=== PATIENT | male | born 1975 | race American Indian/Alaskan Native ===

== ENCOUNTER 2020-12-19 12:18 | Inpatient (IN) | payer BC ==
--- NOTE | 2020-12-19 13:04 | Emergency Department Report ---
ED Chest Pain HPI - General Chief Complaint: Chest Pain Stated Complaint: CHEST DISCOMFORT/DIZZY Time Seen by Provider: 12/19/20 13:01 Source: patient, EMS Mode of arrival: Stretcher Limitations: No Limitations - History of Present Illness Initial Comments: Patient states that he slept in his truck overnight at his job. At approximately 8:30 in the morning, he stated that he had the sensation of a "bubble in his chest". He stated the bubble was substernal to epigastric. There is no radiating pain. He stated he took a baby aspirin to "play it safe". Thereafter he got nauseated and dizzy. He was transferred via EMS. There is no prehospital record available. I did not receive a prehospital EKG until arrival which demonstrated A-V dissociation.. As far as I can tell at this juncture he did not receive any prehospital medication for the twelve-lead EKG which did demonstrate complete heart block, incomplete right bundle branch block and left posterior fascicular block. Patient arrived at this facility stating his chest pain had resolved. His rhythm remained in A-V dissociation. Another twelve-lead EKG looked like he briefly was in Mobitz type II, 2-1 block. However the third EKG did demonstrate again that he was in A-V dissociation. Therefore, I called the ribbon inker for emergent consultation. I spoke with Dr. Reed. Patient denied any cardiac history. He denied recent alcohol use or history of substance abuse. He stated that he was not a smoker. He did inform me that his father had an SD at 57 and that his grandmother also had a heart attack. He denied any current medications, hospitalizations or prior medical diagnosis. Complaint: chest pain -: Gradual Onset: during rest Pain Location: substernal, epigastric Pain Radiation: none Severity: moderate Quality: other ("Like an air bubble") Consistency: now resolved Improves With: nothing Worsens With: nothing Context: other - Related Data Allergies Allergy/AdvReac Type Severity Reaction Status Date / Time No Known Allergies Allergy Verified 12/19/20 14:00 Heart Score - HEART Score History: Slightly suspicious EKG: Non-specific Age: 45-65 Risk factors: > 3 risk factors or hx of atherosclerotic disease Troponin: < normal limit HEART Score: 4 - EKG Read Time Time EKG Completed: 13:45 EKG Read Time: 13:50 - Critical Actions Critical Actions: 4-6 pts:12-16.6% risk of adverse cardiac event. Should be admitted ED Review of Systems ROS: Stated complaint: CHEST DISCOMFORT/DIZZY Other details as noted in HPI Constitutional: other (Dizziness now resolved as above.). denies: chills, fever Eyes: denies: eye pain, vision change ENT: denies: ear pain, throat pain Respiratory: denies: cough, shortness of breath Cardiovascular: as per HPI, chest pain. denies: palpitations Endocrine: no symptoms reported Gastrointestinal: nausea. denies: abdominal pain, vomiting, diarrhea Genitourinary: denies: urgency, dysuria Musculoskeletal: denies: back pain, joint swelling, arthralgia Skin: denies: rash, lesions Neurological: denies: headache, weakness, paresthesias Psychiatric: denies: anxiety, depression Hematological/Lymphatic: denies: easy bleeding, easy bruising ED Past Medical Hx - Past Medical History Previous Medical History?: No - Social History Smoking Status: Never Smoker Substance Use Type: None ED Physical Exam - General Limitations: No Limitations General appearance: alert, in no apparent distress - Head Head exam: Present: atraumatic, normocephalic. Absent: normal inspection - Eye Eye exam: Present: normal appearance. Absent: scleral icterus - ENT ENT exam: Present: mucous membranes moist - Neck Neck exam: Present: normal inspection. Absent: tenderness, meningismus - Respiratory Respiratory exam: Present: normal lung sounds bilaterally. Absent: respiratory distress - Cardiovascular Cardiovascular Exam: Present: bradycardia, other (A-V dissociation). Absent: systolic murmur, diastolic murmur, rubs, gallop - GI/Abdominal GI/Abdominal exam: Present: soft, normal bowel sounds. Absent: distended, tenderness, guarding, rebound - Rectal Rectal exam: Present: deferred - Extremities Exam Extremities exam: Present: normal inspection, pedal edema. Absent: joint swelling, calf tenderness - Back Exam Back exam: Present: normal inspection - Neurological Exam Neurological exam: Present: alert, oriented X3, CN II-XII intact. Absent: motor sensory deficit - Psychiatric Psychiatric exam: Present: normal affect, normal mood - Skin Skin exam: Present: warm, dry, intact, normal color. Absent: rash ED Course Vital Signs 12/19/20 12/19/20 12/19/20 13:30 13:46 14:00 Pulse Rate 50 L 52 L 49 L Respiratory 8 L 16 18 Rate Blood Pressure 165/81 167/88 188/97 Blood Pressure [Left] O2 Sat by Pulse 98 98 100 Oximetry 12/19/20 14:08 Pulse Rate 112 H Respiratory 18 Rate Blood Pressure Blood Pressure 170/110 [Left] O2 Sat by Pulse 98 Oximetry - Reevaluation(s) Reevaluation #1: Spoke with ribbon inker, Dr. Reed. He requests that we give the patient a full amp of atropine IV (1 mg). We discussed the possibility of 0.5 mg. However he is comfortable giving 1 mg. We discussed the possibility of paradoxical effect. Dr. Dr. Reed has reviewed the EKG, consistent with A-V dissociation with incomplete right bundle branch block/LPFB 12/19/20 13:52 12/19/20 14:36 Patient was given a milligram of atropine. I remained at the bedside with the nurse. Initially, he responded with a sinus tachycardia of 120. However, he d developed a "September of " without ventricular complexes. He looked dusky and stopped communicating. I did immediately do chest compressions on the patient (approximately 10). The patient then regained consciousness and again was in A- V dissociation. The ventricular rate went as low as 24 on a twelve-lead EKG timed 1412. Patient's blood pressure remained hypertensive. By 1419 repeat EKG essentially showed him returned to his baseline complete AV block with a persistent incomplete RBBB and LAFB. This was reported to Dr. Reed. He activated the [employer]. The need for temporary pacemaker was explained to the patient by me. He was awake and alert and understanding of problem. Hospitalist Dr. Arias was informed of the need to admit. He requested bridge orders to the ICU. 12/19/20 14:59 WAI score - Wai Score Age > 65: (1) Yes Aspirin use within the Past 7 Days: (0) No 3 or more CAD Risk Factors: (1) Yes 2 or more Angina events in past 24 hrs: (0) No Known CAD with more than 50% Stenosis: (0) No Elevated Cardiac Markers: (0) No ST Deviation Greater than 0.5mm: (0) No WAI Score: 2 ED Medical Decision Making - Lab Data Result diagrams: 12/19/20 13:34 05/21/21 13:34 - EKG Data -: EKG Interpreted by Me - EKG Data Interpretation: other (A-V dissociation ventricular rate 40s, atrial rate 40s) Critical Care Time: Yes Critical care time in (mins) excluding proc time.: 80 Critical care attestation.: If time is entered above; I have spent that time in minutes in the direct care of this critically ill patient, excluding procedure time. ED Disposition Clinical Impression: Aur[place]o ventricular dissociation Disposition: 09 OP ADMIT IP TO THIS HOSP Is pt being admited?: Yes Does the pt Need Aspirin: Yes Condition: Stable Time of Disposition: 15:06
--- NOTE | 2020-12-19 13:36 | XRay Report ---
CHEST 1 VIEW 12/19/2020 12:31 PM INDICATION / CLINICAL INFORMATION: Chest Pain. COMPARISON: None available. FINDINGS: SUPPORT DEVICES: None. HEART / MEDIASTINUM: No significant abnormality. LUNGS / PLEURA: No significant pulmonary or pleural abnormality. No pneumothorax. ADDITIONAL FINDINGS: No significant additional findings. IMPRESSION: 1. No acute findings. Signer Name: Aj Hannon MD Signed: 12/19/2020 1:31 PM Workstation Name: [id number]
[2020-12-19] MEDS ORDERED: ATROPINE 1 MG/ML VIAL IV ONE (13:57)
[2020-12-19] MEDS ORDERED: ATROPINE 0.1% (1 MG/10 ML) CARDIAC SYRINGE ONE (13:59)
[2020-12-19 14:05] LABS: Basophils % (Auto) 0.4 % (0.0-1.8); Eosinophils # (Auto) 0.2 K/mm3 (0.0-0.4); Eosinophils % (Auto) 2.5 % (0.0-4.3); Hematocrit 41.2 % (35.5-45.6); INR 1.44 (0.87-1.13); Lymphocytes # (Auto) 1.8 K/mm3 (1.2-5.4); Mean Corpuscular HGB Conc 34 % (32-34); Mean Corpuscular Volume 77 fl (84-94); Monocytes # (Auto) 0.8 K/mm3 (0.0-0.8); Platelet Count 274 K/mm3 (140-440); Red Blood Count 5.33 M/mm3 (3.65-5.03); Red Cell Distribution Width 15.8 % (13.2-15.2)
[2020-12-19 14:06] LABS: Partial Thromboplastin Time 32.8 Sec. (24.2-36.6)
[2020-12-19 14:07] LABS: BUN/Creatinine Ratio 9; Blood Urea Nitrogen 10 mg/dL (9-20); Calcium 9.1 mg/dL (8.4-10.2); Hemolysis Index 3
[2020-12-19 14:09] LABS: Creatine Kinase MB 7.8 ng/mL (0.0-4.0)
[2020-12-19 14:11] LABS: Alanine Aminotransferase 29 units/L (7-56); Albumin 4.2 g/dL (3.9-5)
[2020-12-19 14:14] LABS: Bilirubin,Direct < 0.2 mg/dL (0-0.2)
[2020-12-19] MEDS ORDERED: HEPARIN/NS 5000 UNIT/500ML 500 ML IR ONE (14:33)
[2020-12-19] MEDS ORDERED: SODIUM CHLORIDE 0.9% 500 ML 500 ML ONE (14:41)
[2020-12-19 14:48] LABS: Free T4 (Free Thyroxine) 1.05 ng/dL (0.76-1.46)
[2020-12-19] MEDS: fentaNYL 100 MCG/2 ML INJ ONE ×2 (15:22→15:32)
[2020-12-19] MEDS: LIDOCAINE (2%) 20 MG/1 ML VIAL 20 ML MDV INFILTRATI ONE ×2 (15:22→15:28)
[2020-12-19] MEDS: MIDAZOLAM 2 MG/2 ML INJ ONE ×2 (15:22→15:32)
[2020-12-19] MEDS ORDERED: LIDOCAINE (2%) 20 MG/1 ML VIAL 20 ML MDV INFILTRATI ONE (15:33)
--- NOTE | 2020-12-19 16:25 | Consultation ---
History of Present Illness Consult date: 12/19/20 Consult reason: bradycardia History of present illness: Patient is a 45-year-old man who is morbidly obese, denies any prior cardiac history, presented to the hospital with symptomatic bradycardia. EKG in the emergency room was sinus rhythm with complete heart block and a ventricular escape at 40. There was transient return to a sinus tachycardia with one-to-one conduction following intravenous atropine, but he soon reverted back to complete A-V dissociation. Cardiology consultation was requested, and we recommended urgent temporary transvenous pacemaker placement. A transvenous pacemaker was successfully deployed via the right femoral vein, with excellent pacing thresholds. Patient is admitted to the CCU for further observation. Patient denies any prior medical history, is on no medications. Although he denies a history of hypertension his systolic blood pressure has been markedly elevated during this presentation, consistently over 200 systolic. Laboratory exam shows a normal potassium of 4.0, normal magnesium of 2.3, and normal TSH of 1.3. There was a mild increase in his CPK of 500, but the troponin level was normal. Past History Past Medical History: No medical history Medications and Allergies Allergies Allergy/AdvReac Type Severity Reaction Status Date / Time No Known Allergies Allergy Verified 12/19/20 14:00 Active Meds: Active Medications Aspirin (Aspirin 325 Mg Tab) 325 mg PO QDAY [place] Nifedipine (Nifedipine Xl 60 Mg Tab) 60 mg PO Q12HR [place] Review of Systems Cardiovascular: lightheadedness, shortness of breath, no chest pain, no orthopnea, no palpitations, no rapid/irregular heart beat, no edema, no syncope Physical Examination Vital Signs Pulse Resp BP Pulse Ox 50 L 8 L 165/81 98 12/19/20 13:30 12/19/20 13:30 12/19/20 13:30 12/19/20 13:30 General appearance: mild distress HEENT: Positive: PERRL Neck: Positive: neck supple Cardiac: Positive: Irregularly Regular Lungs: Positive: Decreased Breath Sounds Neuro: Positive: Grossly Intact Abdomen: Positive: Soft Male genitourinary: Positive: deferred Skin: Positive: Clear Extremities: Absent: edema Results 12/19/20 13:34 12/19/20 13:34 Cardiac Enzymes 12/19/20 Range/Units 13:34 AST 22 (5-40) units/L CK-MB (CK-2) 7.8 H (0.0-4.0) ng/mL Coagulation 12/19/20 Range/Units 13:34 PT 17.4 H (12.2-14.9) Sec. INR 1.44 H (0.87-1.13) APTT 32.8 (24.2-36.6) Sec. CBC 12/19/20 Range/Units 13:34 WBC 6.4 (4.5-11.0) K/mm3 RBC 5.33 H (3.65-5.03) M/mm3 Hgb 14.0 (11.8-15.2) gm/dl Hct 41.2 (35.5-45.6) % Plt Count 274 (140-440) K/mm3 Lymph # (Auto) 1.8 (1.2-5.4) K/mm3 [place] # (Auto) 0.8 (0.0-0.8) K/mm3 Eos # (Auto) 0.2 (0.0-0.4) K/mm3 Baso # (Auto) 0.0 (0.0-0.1) K/mm3 Comprehensive Metabolic Panel 12/19/20 12/19/20 Range/Units 13:34 13:34 Sodium 137 (137-145) mmol/L Potassium 4.0 (3.6-5.0) mmol/L Chloride 101.7 (98-107) mmol/L Carbon Dioxide 26 (22-30) mmol/L BUN 10 (9-20) mg/dL Creatinine 1.1 (0.8-1.3) mg/dL Glucose 96 (75-100) mg/dL Calcium 9.1 (8.4-10.2) mg/dL Direct Bilirubin < 0.2 (0-0.2) mg/dL Indirect Bilirubin 0.2 mg/dL AST 22 (5-40) units/L ALT 29 (7-56) units/L Alkaline Phosphatase 80 (35-129) units/L Total Protein 7.5 (6.3-8.2) g/dL Albumin 4.2 (3.9-5) g/dL EKG interpretations - Telemetry EKG Rhythm: Sinus Rhythm (With complete heart block and ventricular escape at 40) Assessment and Plan - Patient Problems (1) Complete heart block Current Visit: Yes Status: Acute Plan to address problem: Patient presents with symptomatic bradycardia due to complete heart block. He is status post temporary transvenous pacemaker placement. There are no obvious reversible causes at this time so he may very likely need permanent pacemaker placement. We will order an echocardiogram for left ventricular function assessment. (2) Uncontrolled hypertension Current Visit: Yes Status: Acute Plan to address problem: We will start patient on Procardia XL 60 mg twice daily for hypertension management.
--- NOTE | 2020-12-19 17:03 | Cardiac Catherization Report ---
DATE OF SERVICE: 12/19/2020 PROCEDURE: TEMPORARY PACEMAKER PLACEMENT. REASON FOR PROCEDURE: The patient is a 45-year-old man who presented to the hospital with symptomatic, severe anemia. EKG was a sinus rhythm with complete heart block and a ventricular escape rhythm at 40. The patient was initially treated with intravenous atropine, with only temporary return to a sinus with 1:1 conduction. He soon after reverted back to complete heart block. This prompted a recommendation for urgent transvenous pacemaker placement. DESCRIPTION OF PROCEDURE: I was present for the entire procedure and supervised the moderate sedation protocol. The patient was prepped and draped in a sterile fashion after informed consent. The right femoral vein was entered using Seldinger technique followed by placement of a 6-Polish sheath. We then advanced a 5 Polish transvenous pacemaker to the right ventricular apex. Following the pacemaker positioning, we were able to obtain excellent capture with a threshold of 0.2 millivolts. The procedure was well tolerated by the patient and there were no complications. He was returned to the CCU in stable condition. CONCLUSION: Successful placement of a temporary transvenous pacemaker via the right femoral vein. TID: [id number] RECEIPT: [id number] KANG YOO
--- NOTE | 2020-12-19 17:07 | History and Physical Report ---
History of Present Illness Date of examination: 12/19/20 Date of admission: 12/19/20 14:29 Chief complaint: Dizziness and chest tightness since a.m. 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 Patient slept the whole night and woke up in the morning and whenever he was sitting up started feeling dizzy and some chest tightness. And near passing out. Because of the symptoms patient came to the emergency room via EMS. EKGs with EMS and the EKGs in the ER showed AV block and bradycardia for which patient was taken to the Solutions Engineer for temporary venous pacemaker. No cardiac history. Hypertension present. No alcohol or smoking. No substance abuse. Patient has a strong family history of hypertension and coronary artery disease. - Past Medical History Htn Past surgical history No - Social History Smoking Status: Never Smoker Substance Use Type: None Family history Htn Review of Systems ROS: Stated complaint: CHEST DISCOMFORT/DIZZY Other details as noted in HPI Constitutional: other (Dizziness now resolved as above.). denies: chills, fever Eyes: denies: eye pain, vision change ENT: denies: ear pain, throat pain Respiratory: denies: cough, shortness of breath Cardiovascular: Some chest tightness Endocrine: no symptoms reported Gastrointestinal: nausea. denies: abdominal pain, vomiting, diarrhea Genitourinary: denies: urgency, dysuria Musculoskeletal: denies: back pain, joint swelling, arthralgia Skin: denies: rash, lesions Neurological: denies: headache, weakness, paresthesias Psychiatric: denies: anxiety, depression Hematological/Lymphatic: denies: easy bleeding, easy bruising Past History Past Medical History: No medical history Medications and Allergies Allergies Allergy/AdvReac Type Severity Reaction Status Date / Time No Known Allergies Allergy Verified 12/19/20 14:00 Home Medications Medication Instructions Recorded Confirmed Last Taken Type No Known Home Medications [No 12/19/20 12/19/20 Unknown History Reported Home Medications] Active Meds: Active Medications Aspirin (Aspirin 325 Mg Tab) 325 mg PO QDAY [place] Nifedipine (Nifedipine Xl 60 Mg Tab) 60 mg PO Q12HR [place] Exam - Constitutional Vitals: Temp Pulse Resp BP Pulse Ox 112 H 18 170/110 98 12/19/20 14:08 12/19/20 14:08 12/19/20 14:08 12/19/20 14:08 General appearance: Present: no acute distress, well-nourished - EENT Eyes: Present: PERRL ENT: hearing intact, clear oral mucosa - Neck Neck: Present: supple, normal ROM - Respiratory Respiratory effort: normal Respiratory: bilateral: CTA - Cardiovascular Heart rate: 56 Rhythm: regular Heart Sounds: Present: S1 & S2. Absent: rub, click - Extremities Extremities: pulses symmetrical, No edema Peripheral Pulses: within normal limits - Abdominal General gastrointestinal: Present: soft, non-tender, non-distended, normal bowel sounds Male genitourinary: Present: normal - Integumentary Integumentary: Present: clear, warm, dry - Musculoskeletal Musculoskeletal: gait normal, strength equal bilaterally - Psychiatric Psychiatric: appropriate mood/affect, intact judgment & insight - Neurologic Neurologic: CNII-XII intact, moves all extremities HEART Score - HEART Score History: Highly suspicious EKG: Non-specific Age: 45-65 Risk factors: 1-2 risk factors Troponin: Troponin T < 0.010 ng/mL (0.00-0.029) 12/19/20 13:34 Troponin: < normal limit HEART Score: 5 - Critical Actions Critical Actions: 4-6 pts:12-16.6% risk of adverse cardiac event. Should be admitted Results - Labs CBC & Chem 7: 12/19/20 13:34 12/19/20 13:34 Labs: Laboratory Last Values WBC 6.4 K/mm3 (4.5-11.0) 12/19/20 13:34 RBC 5.33 M/mm3 (3.65-5.03) H 12/19/20 13:34 Hgb 14.0 gm/dl (11.8-15.2) 12/19/20 13:34 Hct 41.2 % (35.5-45.6) 12/19/20 13:34 MCV 77 fl (84-94) L 12/19/20 13:34 MCH 26 pg (28-32) L 12/19/20 13:34 MCHC 34 % (32-34) 12/19/20 13:34 RDW 15.8 % (13.2-15.2) H 12/19/20 13:34 Plt Count 274 K/mm3 (140-440) 12/19/20 13:34 Lymph % (Auto) 28.0 % (13.4-35.0) 12/19/20 13:34 [place] % (Auto) Field Sales Agent 12/19/20 13:34 Eos % (Auto) 2.5 % (0.0-4.3) 12/19/20 13:34 Baso % (Auto) 0.4 % (0.0-1.8) 12/19/20 13:34 Lymph # (Auto) 1.8 K/mm3 (1.2-5.4) 12/19/20 13:34 [place] # (Auto) 0.8 K/mm3 (0.0-0.8) 12/19/20 13:34 Eos # (Auto) 0.2 K/mm3 (0.0-0.4) 12/19/20 13:34 Baso # (Auto) 0.0 K/mm3 (0.0-0.1) 12/19/20 13:34 Seg Neutrophils % 56.6 % (40.0-70.0) 12/19/20 13:34 Seg Neutrophils # 3.6 K/mm3 (1.8-7.7) 12/19/20 13:34 PT 17.4 Sec. (12.2-14.9) H 12/19/20 13:34 INR 1.44 (0.87-1.13) H 12/19/20 13:34 APTT 32.8 Sec. (24.2-36.6) 12/19/20 13:34 Sodium 137 mmol/L (137-145) 12/19/20 13:34 Potassium 4.0 mmol/L (3.6-5.0) 12/19/20 13:34 Chloride 101.7 mmol/L (98-107) 12/19/20 13:34 Carbon Dioxide 26 mmol/L (22-30) 12/19/20 13:34 Anion Gap 13 mmol/L 12/19/20 13:34 BUN 10 mg/dL (9-20) 12/19/20 13:34 Creatinine 1.1 mg/dL (0.8-1.3) 12/19/20 13:34 Estimated GFR > 60 ml/min 12/19/20 13:34 BUN/Creatinine Ratio 9 % 12/19/20 13:34 Glucose 96 mg/dL (75-100) 12/19/20 13:34 Calcium 9.1 mg/dL (8.4-10.2) 12/19/20 13:34 Magnesium 2.30 mg/dL (1.7-2.3) 12/19/20 13:34 Total Bilirubin 0.40 mg/dL (0.1-1.2) 12/19/20 13:34 Direct Bilirubin < 0.2 mg/dL (0-0.2) 12/19/20 13:34 Indirect Bilirubin 0.2 mg/dL 12/19/20 13:34 AST 22 units/L (5-40) 12/19/20 13:34 ALT 29 units/L (7-56) 12/19/20 13:34 Alkaline Phosphatase 80 units/L (35-129) 12/19/20 13:34 Total Creatine Kinase 503 units/L (55-170) H 12/19/20 13:34 CK-MB (CK-2) 7.8 ng/mL (0.0-4.0) H 12/19/20 13:34 CK-MB (CK-2) Rel Index 1.5 (0-4) 12/19/20 13:34 Troponin T < 0.010 ng/mL (0.00-0.029) 12/19/20 13:34 NT-Pro-B Natriuret Pep 45.95 pg/mL (0-450) 12/19/20 13:34 Total Protein 7.5 g/dL (6.3-8.2) 12/19/20 13:34 Albumin 4.2 g/dL (3.9-5) 12/19/20 13:34 Albumin/Globulin Ratio 1.3 % 12/19/20 13:34 TSH 1.320 mlU/mL (0.270-4.200) 12/19/20 13:34 Free T4 1.05 ng/dL (0.76-1.46) 12/19/20 13:34 Short CBC 12/19/20 Range/Units 13:34 WBC 6.4 (4.5-11.0) K/mm3 Hgb 14.0 (11.8-15.2) gm/dl Hct 41.2 (35.5-45.6) % Plt Count 274 (140-440) K/mm3 BMP 12/19/20 13:34 Sodium 137 Potassium 4.0 Chloride 101.7 Carbon Dioxide 26 BUN 10 Creatinine 1.1 Glucose 96 Calcium 9.1 Cardiac Enzymes 12/19/20 12/19/20 12/19/20 Range/Units 13:34 13:34 19:48 Total Creatine Kinase 503 H (55-170) units/L CK-MB (CK-2) 7.8 H (0.0-4.0) ng/mL Troponin T < 0.010 < 0.010 (0.00-0.029) ng/mL Liver Function 12/19/20 Range/Units 13:34 Total Bilirubin 0.40 (0.1-1.2) mg/dL Direct Bilirubin < 0.2 (0-0.2) mg/dL AST 22 (5-40) units/L ALT 29 (7-56) units/L Alkaline Phosphatase 80 (35-129) units/L Albumin 4.2 (3.9-5) g/dL Urine 12/19/20 Range/Units 18:50 Urine Color Yellow (Yellow) Urine pH 5.0 (5.0-7.0) Ur Specific [place] 1.012 (1.003-1.030) Urine Protein 100 mg/dl (Negative) mg/dL Urine Glucose (UA) Neg (Negative) mg/dL - Imaging and Cardiology EKG: report reviewed (Complete heart block) Assessment and Plan Assessment and plan: Critical care statement The high probability OF a clinically significant sudden or life-threatening deterioration of the cardiorespiratory system and endocrine system required my full and direct attention, intervention and postoperative management. The aggregate critical care time was 35 minutes. The time is in addition to time spent performing reported procedures but includes the followin: Data review and interpretation 2: Patient assessment and monitoring of vital signs 3: Documentation 4:: Medication orders and management Advance Directives: Yes (Full code) VTE prophylaxis?: Chemical Plan of care discussed with patient/family: Yes - Patient Problems (1) Complete heart block Current Visit: Yes Status: Acute Plan to address problem: Cardiology was consulted [facility] --Dr Reed took him to the Solutions Engineer and had successful placement of a temporary transvenous pacemaker via the right femoral vein (2) Hypertensive emergency Current Visit: Yes Status: Acute Plan to address problem: Patient initiated on hydralazine 50 every 8 and valsartan 160 every 12 Hydralazine 10 mg IV every 2 3 as needed for blood pressure more than 160/100 (3) Acute coronary syndrome Current Visit: Yes Status: Acute Plan to address problem: Serial troponins for now IV morphine for chest pain (4) Pre-syncope Current Visit: Yes Status: Acute Plan to address problem: Secondary to complete heart block IV fluids for now (5) DVT prophylaxis Current Visit: Yes Status: Acute Plan to address problem: On heparin and GI prophylaxis
[2020-12-19] MEDS: ASPIRIN 325 MG TAB PO SCH (17:16)
[2020-12-19 19:02] LABS: Bilirubin,Urine NEG (Negative); Blood,Urine SM (Negative); Color,Urine Yellow (Yellow); Mucus,Urine FEW /HPF; Urobilinogen,Urine < 2.0 mg/dL (<2.0)
[2020-12-19 19:10] LABS: Amphetamine Screen,Urine Negative; Benzodiazepines Screen,Urine Negative; Cannabinoid Screen,Urine Negative; Cocaine Screen,Urine Negative; Methadone Screen,Urine Negative; Opiate Screen,Urine Negative
[2020-12-19] MEDS: NIFEdipine XL 60 MG TAB PO SCH (22:10)
[2020-12-19] MEDS ORDERED: METOCLOPRAMIDE 10 MG/2 ML INJ IV PRN (23:37)
[2020-12-19] MEDS ORDERED: ONDANSETRON 4 MG/2 ML INJ IV PRN (23:37)
[2020-12-19] MEDS ORDERED: oxyCODONE /ACETAMINOPHEN 5-325MG TAB PO PRN (23:37)
[2020-12-19] MEDS ORDERED: SODIUM CHLORIDE 0.9% 1000 ML 1,000 ML IV SCH (23:45)
[2020-12-20] MEDS: hydrALAZINE 25 MG TAB PO SCH ×3 (00:01→14:45)
[2020-12-20] MEDS ORDERED: SIMETHICONE 80 MG CHEW TAB PO PRN (02:29)
[2020-12-20 02:58] LABS: Basophils % (Auto) 0.3 % (0.0-1.8); Eosinophils # (Auto) 0.1 K/mm3 (0.0-0.4); Eosinophils % (Auto) 1.2 % (0.0-4.3); Hematocrit 40.3 % (35.5-45.6); Hemoglobin 13.7 gm/dl (11.8-15.2); Lymphocytes # (Auto) 1.6 K/mm3 (1.2-5.4); Lymphocytes % (Auto) 19.9 % (13.4-35.0); Mean Corpuscular HGB Conc 34 % (32-34); Mean Corpuscular Volume 78 fl (84-94); Platelet Count 260 K/mm3 (140-440); Red Blood Count 5.15 M/mm3 (3.65-5.03); Red Cell Distribution Width 15.4 % (13.2-15.2)
[2020-12-20 04:18] LABS: Alanine Aminotransferase 30 units/L (7-56); Albumin 4.2 g/dL (3.9-5); BUN/Creatinine Ratio 10; Blood Urea Nitrogen 11 mg/dL (9-20); Calcium 9.2 mg/dL (8.4-10.2); Hemolysis Index 3
[2020-12-20] MEDS: ASPIRIN 325 MG TAB PO SCH (09:56)
[2020-12-20] MEDS: VALSARTAN 160MG TAB PO SCH ×3 (09:56→21:08)
[2020-12-20] MEDS: NIFEdipine XL 60 MG TAB PO SCH ×2 (09:57→21:08)
[2020-12-20] MEDS: FAMOTIDINE 20 MG/2 ML INJ IV SCH ×2 (09:57→21:06)
[2020-12-20] MEDS: HEPARIN 5,000 UNIT/1 ML VIAL SUB-Q SCH ×2 (09:57→21:08)
--- NOTE | 2020-12-20 12:17 | Consultation ---
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 Presented to the ED with a heart rate in the 20's and found to be in complete heart block. Transvenous pacermaker placed by cards via right femoral. Here now in unit, fully paced and stable. Past History Past Medical History: No medical history Past Surgical History: No surgical history Social history: no significant social history Family history: no significant family history Medications and Allergies Allergies Allergy/AdvReac Type Severity Reaction Status Date / Time No Known Allergies Allergy Verified 12/19/20 14:00 Home Medications Medication Instructions Recorded Confirmed Last Taken Type No Known Home Medications [No 12/19/20 12/19/20 Unknown History Reported Home Medications] Active Meds: Active Medications Acetaminophen (Acetaminophen 325 Mg Tab) 650 mg PO Q4H PRN PRN Reason: Pain MILD(1-3)/Fever >100.5/YAO Aspirin (Aspirin 325 Mg Tab) 325 mg PO QDAY [facility] Last Admin: 12/20/20 09:56 Dose: 325 mg Documented by: Famotidine (Famotidine 20 Mg/2 Ml Inj) 20 mg IV BID [facility] Last Admin: 12/20/20 09:57 Dose: 20 mg Documented by: Heparin Sodium (Porcine) (Heparin 5,000 Unit/1 Ml Vial) 5,000 unit SUB-Q Q12HR [facility] Last Admin: 12/20/20 09:57 Dose: 5,000 unit Documented by: Hydralazine HCl (Hydralazine 25 Mg Tab) 50 mg PO Q8HR [facility] Last Admin: 12/20/20 08:45 Dose: Not Given Documented by: Hydromorphone HCl (Hydromorphone 1 Mg/1 Ml Inj) 0.5 mg IV Q3H PRN PRN Reason: Pain , Severe (7-10) Sodium Chloride (Nacl 0.9% 1000 Ml) 1,000 mls @ 42 mls/hr IV DIRECT [facility] Last Admin: 12/20/20 00:01 Dose: 42 mls/hr Documented by: Metoclopramide HCl (Metoclopramide 10 Mg/2 Ml Inj) 10 mg IV Q6H PRN PRN Reason: Nausea And Vomiting Nifedipine (Nifedipine Xl 60 Mg Tab) 60 mg PO Q12HR [facility] Last Admin: 12/20/20 09:57 Dose: 60 mg Documented by: Ondansetron HCl (Ondansetron 4 Mg/2 Ml Inj) 4 mg IV Q8H PRN PRN Reason: Nausea And Vomiting Oxycodone/Acetaminophen (Oxycodone /Acetaminophen 5-325mg Tab) 1 tab PO Q6H PRN PRN Reason: Pain, Moderate (4-6) Simethicone (Simethicone 80 Mg Chew Tab) 80 mg PO Q6H PRN PRN Reason: Gas pain Last Admin: 12/20/20 03:04 Dose: 80 mg Documented by: Sodium Chloride (Sodium Chloride 0.9% 10 Ml Flush Syringe) 10 ml IV BID [facility] Last Admin: 12/20/20 09:58 Dose: 10 ml Documented by: Sodium Chloride (Sodium Chloride 0.9% 10 Ml Flush Syringe) 10 ml IV PRN PRN PRN Reason: LINE FLUSH Valsartan (Valsartan 160mg Tab) 160 mg PO Q12HR [facility] Last Admin: 12/20/20 09:56 Dose: 160 mg Documented by: Review of Systems All systems: negative Exam - Constitutional Vitals: Temp Pulse Resp BP Pulse Ox 98 F 56 L 22 131/64 99 12/20/20 03:00 12/20/20 10:00 12/20/20 10:00 12/20/20 10:00 12/20/20 10:00 General appearance: Present: no acute distress, well-nourished, obese - EENT Eyes: Present: PERRL, EOM intact ENT: hearing intact, clear oral mucosa, dentition normal - Neck Neck: Present: supple, normal ROM - Respiratory Respiratory effort: normal Respiratory: bilateral: CTA Results - Labs CBC & Chem 7: 12/20/20 02:19 12/20/20 02:19 Labs: Abnormal lab results 12/19/20 12/19/20 12/19/20 Range/Units 13:34 13:34 13:34 RBC 5.33 H (3.65-5.03) M/mm3 MCV 77 L (84-94) fl MCH 26 L (28-32) pg RDW 15.8 H (13.2-15.2) % Story % (Auto) (0.0-7.3) % Story # (Auto) (0.0-0.8) K/mm3 PT 17.4 H (12.2-14.9) Sec. INR 1.44 H (0.87-1.13) Total Creatine Kinase 503 H (55-170) units/L CK-MB (CK-2) 7.8 H (0.0-4.0) ng/mL 12/20/ Range/Units 02:19 RBC 5.15 H (3.65-5.03) M/mm3 MCV 78 L (84-94) fl MCH 27 L (28-32) pg RDW 15.4 H (13.2-15.2) % Story % (Auto) 13.0 H (0.0-7.3) % Story # (Auto) 1.0 H (0.0-0.8) K/mm3 PT (12.2-14.9) Sec. INR (0.87-1.13) Total Creatine Kinase (55-170) units/L CK-MB (CK-2) (0.0-4.0) ng/mL - Imaging and Cardiology Chest x-ray: image reviewed (normal) Assessment and Plan 45 y/o obese male with complete heart block 1. Pacemaker placement per cards 2. Needs outpatient PSG 3. Weight loss 4. Continue ICU monitoring CCT 31 minutes.
--- NOTE | 2020-12-20 13:27 | Progress Note ---
Assessment and Plan Assessment and plan: This is a 45-year-old female with no known medical history was admitted for complete heart block s/p transvenous pacemaker COVID-19 PUI Complete heart block Hypertensive emergency Presyncope (likely related to complete heart block) -Cardiology, CCM consulted, appreciate recommendations -Covid PCR pending -Contact/droplet isolation -S/p atropine x1 in the ED -S/p insertion of transvenous pacemaker -Echocardiogram pending -Blood pressure monitoring per protocol -Procardia, valsartan, hydralazine as needed hydralazine -Cardiac diet -Serial troponins have been less than 0.01 -Trend CBC, CMP DVT/GI prophylaxis: SCDs to bilateral lower extremities while in bed, heparin subcu Disposition: ICU The high probability of a clinically significant, sudden or life threatening deterioration of the [cardio] system(s) required my full and direct attention, intervention and personal management. The aggregate critical care time was [35] minutes. 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 ECG in the EMS and ED showed AV block with heart rate in the 20s and bradycardia for which the patient was emergently taken to [facility] for temporary venous pacemaker insertion. Patient was admitted to the hospital service with consults to [facility] and cardiology. 12/20: COVID-19 PCR pending. Patient complains of of gas pains for which he is being treated with simethicone. Patient does not complain of any chest pain, respiratory distress, nausea or vomiting. Blood pressure is better controlled. Hospitalist Physical - Constitutional Vitals: Temp Pulse Resp BP Pulse Ox 98 F 56 L 18 142/78 99 12/20/20 03:00 12/20/20 13:00 12/20/20 13:00 12/20/20 13:00 12/20/20 13:00 General appearance: Present: no acute distress, well-nourished, obese - EENT Eyes: Present: PERRL, EOM intact ENT: hearing intact, clear oral mucosa, dentition normal - Neck Neck: Present: supple, normal ROM - Respiratory Respiratory effort: normal Respiratory: bilateral: diminished - Cardiovascular Rhythm: regular Heart Sounds: Present: S1 & S2. Absent: systolic murmur, diastolic murmur - Extremities Extremities: no ischemia, pulses intact, pulses symmetrical, No edema, normal temperature, normal color, Full ROM Peripheral Pulses: within normal limits - Abdominal General gastrointestinal: soft, non-tender, non-distended, normal bowel sounds - Integumentary Integumentary: Present: clear, warm, dry - Psychiatric Psychiatric: appropriate mood/affect, cooperative - Neurologic Neurologic: CNII-XII intact, no focal deficits - Allied Health Allied health notes reviewed: nursing, social work HEART Score - HEART Score EKG: Non-specific Age: 45-65 Risk factors: 1-2 risk factors Troponin: Troponin T < 0.010 ng/mL (0.00-0.029) 12/20/20 06:51 Troponin: < normal limit - Critical Actions Critical Actions: 4-6 pts:12-16.6% risk of adverse cardiac event. Should be admitted Results - Labs CBC & Chem 7: 12/20/20 02:19 12/20/20 02:19 Labs: Laboratory Last Values WBC 7.8 K/mm3 (4.5-11.0) 12/20/20 02:19 RBC 5.15 M/mm3 (3.65-5.03) H 12/20/20 02:19 Hgb 13.7 gm/dl (11.8-15.2) 12/20/20 02:19 Hct 40.3 % (35.5-45.6) 12/20/20 02:19 MCV 78 fl (84-94) L 12/20/20 02:19 MCH 27 pg (28-32) L 12/20/20 02:19 MCHC 34 % (32-34) 12/20/20 02:19 RDW 15.4 % (13.2-15.2) H 12/20/20 02:19 Plt Count 260 K/mm3 (140-440) 12/20/20 02:19 Lymph % (Auto) 19.9 % (13.4-35.0) 12/20/20 02:19 [place] % (Auto) 13.0 % (0.0-7.3) H 12/20/20 02:19 Eos % (Auto) 1.2 % (0.0-4.3) 12/20/20 02:19 Baso % (Auto) 0.3 % (0.0-1.8) 12/20/20 02:19 Lymph # (Auto) 1.6 K/mm3 (1.2-5.4) 12/20/20 02:19 [place] # (Auto) 1.0 K/mm3 (0.0-0.8) H 12/20/20 02:19 Eos # (Auto) 0.1 K/mm3 (0.0-0.4) 12/20/20 02:19 Baso # (Auto) 0.0 K/mm3 (0.0-0.1) 12/20/20 02:19 Seg Neutrophils % 65.6 % (40.0-70.0) 12/20/20 02:19 Seg Neutrophils # 5.1 K/mm3 (1.8-7.7) 12/20/20 02:19 PT 17.4 Sec. (12.2-14.9) H 12/19/20 13:34 INR 1.44 (0.87-1.13) H 12/19/20 13:34 APTT 32.8 Sec. (24.2-36.6) 12/19/20 13:34 Sodium 139 mmol/L (137-145) 12/20/20 02:19 Potassium 4.2 mmol/L (3.6-5.0) 12/20/20 02:19 Chloride 101.1 mmol/L (98-107) 12/20/20 02:19 Carbon Dioxide 28 mmol/L (22-30) 12/20/20 02:19 Anion Gap 14 mmol/L 12/20/20 02:19 BUN 11 mg/dL (9-20) 12/20/20 02:19 Creatinine 1.1 mg/dL (0.8-1.3) 12/20/20 02:19 Estimated GFR > 60 ml/min 12/20/20 02:19 BUN/Creatinine Ratio 10 % 12/20/20 02:19 Glucose 99 mg/dL (75-100) 12/20/20 02:19 Hemoglobin A1c 5.1 % (4-6) 12/20/20 02:19 Calcium 9.2 mg/dL (8.4-10.2) 12/20/20 02:19 Magnesium 2.30 mg/dL (1.7-2.3) 12/19/20 13:34 Total Bilirubin 0.40 mg/dL (0.1-1.2) 12/20/20 02:19 Direct Bilirubin < 0.2 mg/dL (0-0.2) 12/19/20 13:34 Indirect Bilirubin 0.2 mg/dL 12/19/20 13:34 AST 22 units/L (5-40) 12/20/20 02:19 ALT 30 units/L (7-56) 12/20/20 02:19 Alkaline Phosphatase 82 units/L (35-129) 12/20/20 02:19 Total Creatine Kinase 503 units/L (55-170) H 12/19/20 13:34 CK-MB (CK-2) 7.8 ng/mL (0.0-4.0) H 12/19/20 13:34 CK-MB (CK-2) Rel Index 1.5 (0-4) 12/19/20 13:34 Troponin T < 0.010 ng/mL (0.00-0.029) 12/20/20 06:51 NT-Pro-B Natriuret Pep 45.95 pg/mL (0-450) 12/19/20 13:34 Total Protein 6.7 g/dL (6.3-8.2) 12/20/20 02:19 Albumin 4.2 g/dL (3.9-5) 12/20/20 02:19 Albumin/Globulin Ratio 1.7 % 12/20/20 02:19 TSH 1.320 mlU/mL (0.270-4.200) 12/19/20 13:34 Free T4 1.05 ng/dL (0.76-1.46) 12/19/20 13:34 Urine Color Yellow (Yellow) 12/19/20 18:50 Urine Turbidity Clear (Clear) 12/19/20 18:50 Urine pH 5.0 (5.0-7.0) 12/19/20 18:50 Ur Specific [place] 1.012 (1.003-1.030) 12/19/20 18:50 Urine Protein 100 mg/dl mg/dL (Negative) 12/19/20 18:50 Urine Glucose (UA) Neg mg/dL (Negative) 12/19/20 18:50 Urine Ketones Neg mg/dL (Negative) 12/19/20 18:50 Urine Blood Sm (Negative) 12/19/20 18:50 Urine Nitrite Neg (Negative) 12/19/20 18:50 Urine Bilirubin Neg (Negative) 12/19/20 18:50 Urine Urobilinogen < 2.0 mg/dL (<2.0) 12/19/20 18:50 Ur Leukocyte Esterase Neg (Negative) 12/19/20 18:50 Urine WBC (Auto) 1.0 /HPF (0.0-6.0) 12/19/20 18:50 Urine RBC (Auto) 2.0 /HPF (0.0-6.0) 12/19/20 18:50 U Epithel Cells (Auto) < 1.0 /HPF (0-13.0) 12/19/20 18:50 Urine Mucus Few /HPF 12/19/20 18:50 Urine Opiates Screen Negative 12/19/20 18:50 Urine Methadone Screen Negative 12/19/20 18:50 Ur Barbiturates Screen Negative 12/19/20 18:50 Ur Phencyclidine Scrn Negative 12/19/20 18:50 Ur Amphetamines Screen Negative 12/19/20 18:50 U Benzodiazepines Scrn Negative 12/19/20 18:50 Urine Cocaine Screen Negative 12/19/20 18:50 U Marijuana (THC) Screen Negative 12/19/20 18:50 Drugs of Abuse Note Disclamer 12/19/20 18:50 Lim/IV: Voiding Method Urinal Active Medications - Current Medications Current Medications: Generic Name Dose Route Start Last Admin Trade Name Freq PRN Reason Stop Dose Admin Acetaminophen 650 mg 12/19/20 23:37 Acetaminophen 325 Mg Tab PO Q4H PRN Pain MILD(1-3)/Fever >100.5/YAO Aspirin 325 mg 12/19/20 16:00 12/20/20 09:56 Aspirin 325 Mg Tab PO 325 mg QDAY [facility] Administration Famotidine 20 mg 12/20/20 10:00 12/20/20 09:57 Famotidine 20 Mg/2 Ml Inj IV 20 mg BID [facility] Administration Heparin Sodium (Porcine) 5,000 unit 12/20/20 10:00 12/20/20 09:57 Heparin 5,000 Unit/1 Ml Vial SUB-Q 5,000 unit Q12HR [facility] Administration Hydralazine HCl 50 mg 12/19/20 23:45 12/20/20 08:45 Hydralazine 25 Mg Tab PO Not Given Q8HR [facility] Hydromorphone HCl 0.5 mg 12/19/20 23:37 Hydromorphone 1 Mg/1 Ml Inj IV Q3H PRN Pain , Severe (7-10) Metoclopramide HCl 10 mg 12/19/20 23:37 Metoclopramide 10 Mg/2 Ml Inj IV Q6H PRN Nausea And Vomiting Nifedipine 60 mg 12/19/20 22:00 12/20/20 09:57 Nifedipine Xl 60 Mg Tab PO 60 mg Q12HR [facility] Administration Ondansetron HCl 4 mg 12/19/20 23:37 Ondansetron 4 Mg/2 Ml Inj IV Q8H PRN Nausea And Vomiting Oxycodone/Acetaminophen 1 tab 12/19/20 23:37 Oxycodone /Acetaminophen 5-325mg Tab PO Q6H PRN Pain, Moderate (4-6) Simethicone 80 mg 12/20/20 02:29 12/20/20 03:04 Simethicone 80 Mg Chew Tab PO 80 mg Q6H PRN Administration Gas pain Sodium Chloride 10 ml 12/20/20 10:00 12/20/20 09:58 Sodium Chloride 0.9% 10 Ml Flush Syringe IV 10 ml BID [facility] Administration Sodium Chloride 10 ml 12/19/20 23:37 Sodium Chloride 0.9% 10 Ml Flush Syringe IV PRN PRN LINE FLUSH Valsartan 160 mg 12/19/20 23:45 12/20/20 09:56 Valsartan 160mg Tab PO 160 mg Q12HR [facility] Administration
[2020-12-20] MEDS: HYDROmorphone 1 MG/1 ML INJ IV PRN (14:54)
--- NOTE | 2020-12-20 15:33 | Event Note ---
I attempted to update patients mother, Marilyn Allen at [phone] but received a dial tone. This is not the correct number. The correct number is [phone]. I updated her on current events and his possible placement of permanent pacemaker but the decision will be made by cardiology. I answered all her current questions.
--- NOTE | 2020-12-20 17:49 | Progress Note ---
Subjective Date of service: 12/20/20 Interval history: Cardiology Follow-up He is now asymptomatic, currently being paced Echo shows normal EF 50-55%, no significant valve disease. Plan likely permanent PPM. Will need sleep study. Optimize BP. History of Present Illness Consult date: 12/19/20 Consult reason: bradycardia History of present illness: Patient is a 45-year-old man who is morbidly obese, denies any prior cardiac history, presented to the hospital with symptomatic bradycardia. EKG in the emergency room was sinus rhythm with complete heart block and a ventricular escape at 40. There was transient return to a sinus tachycardia with one-to-one conduction following intravenous atropine, but he soon reverted back to complete A-V dissociation. Cardiology consultation was requested, and we recommended urgent temporary transvenous pacemaker placement. A transvenous pacemaker was successfully deployed via the right femoral vein, with excellent pacing thresholds. Patient is admitted to the CCU for further observation. Patient denies any prior medical history, is on no medications. Although he denies a history of hypertension his systolic blood pressure has been markedly elevated during this presentation, consistently over 200 systolic. Laboratory exam shows a normal potassium of 4.0, normal magnesium of 2.3, and normal TSH of 1.3. There was a mild increase in his CPK of 500, but the troponin level was normal. Past History Past Medical History: No medical history Objective Vital Signs Temp Pulse Pulse Resp BP Pulse Ox 12/20/20 17:00 58 L 58 L 11 L 121/71 98 12/20/20 16:50 61 11 L 121/71 99 12/20/20 16:40 61 11 L 121/71 100 12/20/20 16:30 60 16 121/71 99 12/20/20 16:20 56 L 13 140/65 83 L 12/20/20 16:10 56 L 10 L 140/65 97 12/20/20 16:00 56 L 12 140/65 97 12/20/20 15:50 56 L 14 140/65 98 12/20/20 15:40 56 L 12 140/65 99 12/20/20 15:30 56 L 7 L 140/65 98 12/20/20 15:20 56 L 13 133/68 98 12/20/20 15:10 56 L 16 133/68 98 12/20/20 15:00 56 L 22 133/68 97 12/20/20 14:54 16 12/20/20 14:50 133/87 100 12/20/20 14:45 56 L 133/87 12/20/20 14:40 133/87 99 12/20/20 14:30 139/75 99 12/20/20 14:20 139/75 98 12/20/20 14:10 144/68 98 12/20/20 14:00 56 L 12 144/68 99 12/20/20 13:50 19 144/68 99 12/20/20 13:40 56 L 18 144/68 98 12/20/20 13:30 56 L 22 144/68 99 12/20/20 13:20 56 L 14 142/78 98 12/20/20 13:10 56 L 21 142/78 98 12/20/20 13:00 56 L 56 L 20 142/78 98 12/20/20 12:50 56 L 14 145/95 99 12/20/20 12:40 56 L 13 145/95 98 12/20/20 12:30 56 L 15 145/95 96 12/20/20 12:20 56 L 18 126/72 98 12/20/20 12:10 56 L 20 126/72 98 12/20/20 12:00 56 L 20 126/72 100 12/20/20 11:57 56 L 12/20/20 11:50 56 L 16 128/68 97 12/20/20 11:40 56 L 13 128/68 99 12/20/20 11:30 56 L 14 128/68 98 12/20/20 11:20 56 L 15 130/71 98 12/20/20 11:10 56 L 13 130/71 100 12/20/20 11:00 56 L 18 130/71 98 12/20/20 10:50 56 L 11 L 141/79 99 12/20/20 10:40 56 L 17 141/79 98 12/20/20 10:30 56 L 24 141/79 99 12/20/20 10:20 56 L 13 127/82 100 12/20/20 10:10 56 L 13 127/82 99 12/20/20 10:00 56 L 22 131/64 99 12/20/20 09:50 56 L 17 131/64 100 12/20/20 09:40 56 L 14 131/64 98 12/20/20 09:30 56 L 13 131/64 97 12/20/20 09:20 56 L 17 118/66 100 12/20/20 09:10 56 L 17 118/66 99 12/20/20 09:00 56 L 56 L 19 118/66 99 12/20/20 08:50 56 L 12 104/71 99 12/20/20 08:45 56 L 104/71 12/20/20 08:40 56 L 11 L 104/71 99 12/20/20 08:30 60 11 L 104/71 98 12/20/20 08:20 59 L 18 103/67 99 12/20/20 08:10 59 L 17 103/67 99 12/20/20 08:00 59 L 20 103/67 97 12/20/20 07:50 59 L 19 106/71 98 12/20/20 07:40 59 L 17 106/71 96 12/20/20 07:30 60 22 106/71 99 12/20/20 07:20 61 15 128/78 97 12/20/20 07:10 61 15 128/78 99 12/20/20 07:00 61 14 128/78 96 12/20/20 06:50 61 18 150/94 96 12/20/20 06:40 62 23 150/94 96 12/20/20 06:30 63 19 127/75 99 12/20/20 06:20 63 16 127/75 97 12/20/20 06:10 63 14 127/75 95 12/20/20 06:00 63 13 112/63 96 12/20/20 05:50 62 13 122/65 98 12/20/20 05:40 56 L 17 122/65 98 12/20/20 05:30 56 L 18 122/65 94 12/20/20 05:20 56 L 13 112/63 98 12/20/20 05:10 56 L 19 112/63 98 12/20/20 05:00 56 L 56 L 17 112/63 95 12/20/20 04:50 56 L 19 120/73 98 12/20/20 04:40 56 L 16 120/73 99 12/20/20 04:30 63 19 143/84 94 12/20/20 04:20 62 22 143/84 98 12/20/20 04:10 62 13 143/84 97 12/20/20 04:00 61 21 143/84 96 12/20/20 03:50 61 23 150/80 97 12/20/20 03:40 61 22 150/80 98 12/20/20 03:30 60 23 150/80 95 12/20/20 03:20 60 19 150/78 97 12/20/20 03:10 61 19 150/78 96 12/20/20 03:00 98 F 62 23 150/78 91 12/20/20 02:50 62 14 98 12/20/20 02:40 61 14 98 12/20/20 02:30 62 17 168/80 94 12/20/20 02:20 61 16 164/84 98 12/20/20 02:10 60 19 164/84 98 12/20/20 02:00 62 19 164/84 93 12/20/20 01:50 59 L 20 151/91 99 12/20/20 01:40 58 L 17 151/89 99 12/20/20 01:30 57 L 21 151/89 95 12/20/20 01:20 60 20 152/90 99 12/20/20 01:10 60 11 L 151/91 99 12/20/20 01:00 60 57 L 19 152/90 94 12/20/20 00:50 59 L 16 152/90 98 12/20/20 00:40 59 L 21 152/90 99 12/20/20 00:30 59 L 20 153/96 99 12/20/20 00:20 59 L 24 153/96 99 12/20/20 00:10 58 L 20 153/96 98 12/20/20 00:01 58 L 172/94 12/20/20 00:00 58 L 21 153/96 97 12/19/20 23:50 58 L 23 172/94 99 12/19/20 23:40 57 L 17 172/94 99 12/19/20 23:30 58 L 16 172/94 95 12/19/20 23:26 58 L 19 171/106 98 12/19/20 23:20 57 L 19 171/106 97 12/19/20 23:15 57 L 57 L 17 98 12/19/20 23:10 58 L 18 171/106 98 12/19/20 23:07 98.5 F 12/19/20 23:00 58 L 16 171/106 94 12/19/20 22:50 58 L 17 187/103 96 12/19/20 22:40 57 L 23 187/103 96 12/19/20 22:30 57 L 21 187/103 95 12/19/20 22:20 57 L 14 177/100 99 12/19/20 22:10 57 L 56 L 17 177/100 98 12/19/20 22:00 57 L 17 177/100 12/19/20 21:50 57 L 19 146/88 94 12/19/20 21:40 56 L 19 146/88 90 12/19/20 21:30 57 L 23 156/93 91 12/19/20 21:20 56 L 15 146/88 12/19/20 21:10 57 L 26 H 146/88 99 12/19/20 21:00 56 L 23 146/88 94 12/19/20 20:50 56 L 13 164/99 12/19/20 20:40 56 L 21 164/99 12/19/20 20:30 56 L 22 164/99 95 12/19/20 20:20 61 16 167/103 94 12/19/20 20:10 61 21 167/103 95 12/19/20 20:00 56 L 22 167/103 96 12/19/20 19:50 56 L 10 L 181/101 99 12/19/20 19:40 56 L 17 181/101 93 12/19/20 19:35 56 L 22 98 12/19/20 19:34 98.5 F 12/19/20 19:30 56 L 13 181/101 88 12/19/20 19:20 56 L 20 196/103 96 12/19/20 19:10 56 L 13 196/103 99 12/19/20 19:00 56 L 24 196/103 100 12/19/20 18:50 56 L 18 191/103 99 12/19/20 18:40 56 L 16 191/103 96 12/19/20 18:30 56 L 18 191/103 94 12/19/20 18:20 56 L 18 178/99 99 12/19/20 18:10 58 L 17 178/99 99 12/19/20 18:00 57 L 16 178/99 93 12/19/20 17:50 56 L 13 168/102 98 - Physical Examination General: Appears Well, No Apparent Distress HEENT: Positive: PERRL Neck: Positive: neck supple Cardiac: Positive: Reg Rate and Rhythm, S1/S2 Lungs: Positive: Normal Exam Neuro: Positive: Grossly Intact Abdomen: Positive: Soft Skin: Positive: Clear Extremities: Absent: edema - Labs and Meds Cardiac Enzymes 12/20/20 Range/Units 02:19 AST 22 (5-40) units/L CBC 12/20/20 Range/Units 02:19 WBC 7.8 (4.5-11.0) K/mm3 RBC 5.15 H (3.65-5.03) M/mm3 Hgb 13.7 (11.8-15.2) gm/dl Hct 40.3 (35.5-45.6) % Plt Count 260 (140-440) K/mm3 Lymph # (Auto) 1.6 (1.2-5.4) K/mm3 [place] # (Auto) 1.0 H (0.0-0.8) K/mm3 Eos # (Auto) 0.1 (0.0-0.4) K/mm3 Baso # (Auto) 0.0 (0.0-0.1) K/mm3 Comprehensive Metabolic Panel 12/20/20 Range/Units 02:19 Sodium 139 (137-145) mmol/L Potassium 4.2 (3.6-5.0) mmol/L Chloride 101.1 (98-107) mmol/L Carbon Dioxide 28 (22-30) mmol/L BUN 11 (9-20) mg/dL Creatinine 1.1 (0.8-1.3) mg/dL Glucose 99 (75-100) mg/dL Calcium 9.2 (8.4-10.2) mg/dL AST 22 (5-40) units/L ALT 30 (7-56) units/L Alkaline Phosphatase 82 (35-129) units/L Total Protein 6.7 (6.3-8.2) g/dL Albumin 4.2 (3.9-5) g/dL - Imaging and Cardiology EKG: report reviewed (Complete heart block)
[2020-12-20] MEDS: ACETAMINOPHEN 325 MG TAB PO PRN (21:05)
[2020-12-21] MEDS: hydrALAZINE 25 MG TAB PO SCH ×4 (00:11→21:21)
[2020-12-21] MEDS: VALSARTAN 160MG TAB PO SCH ×2 (10:05→21:21)
[2020-12-21] MEDS: NIFEdipine XL 60 MG TAB PO SCH ×2 (10:06→21:21)
[2020-12-21] MEDS: FAMOTIDINE 20 MG/2 ML INJ IV SCH ×2 (10:06→21:22)
[2020-12-21] MEDS: HEPARIN 5,000 UNIT/1 ML VIAL SUB-Q SCH ×2 (10:06→21:22)
[2020-12-21] MEDS: ASPIRIN 325 MG TAB PO SCH (10:06)
--- NOTE | 2020-12-21 11:34 | Progress Note ---
Assessment and Plan Assessment and plan: This is a 45-year-old female with no known medical history was admitted for complete heart block s/p transvenous pacemaker COVID-19 PUI Complete heart block Hypertensive emergency Presyncope (likely related to complete heart block) -Cardiology, CCM consulted, appreciate recommendations -Covid PCR negative -S/p atropine x1 in the ED -S/p insertion of transvenous pacemaker -Echocardiogram shows normal-sized left ventricle, left ventricle systolic function normal, ejection fraction edema range of 50 to 55%, normal-sized right ventricle with normal systolic function, sclerotic aortic valve without st enosis, trace to mild LA -Blood pressure monitoring per protocol -Procardia, valsartan, hydralazine PO and as needed hydralazine -Cardiac diet -Serial troponins have been less than 0.01 -Evaluation for PPM -Needs sleep study to r/o LUCIO -Trend CBC, CMP DVT/GI prophylaxis: SCDs to bilateral lower extremities while in bed, heparin subcu Disposition: ICU The high probability of a clinically significant, sudden or life threatening deterioration of the [cardio] system(s) required my full and direct attention, intervention and personal management. The aggregate critical care time was [35] minutes. 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 ECG in the EMS and ED showed AV block with heart rate in the 20s and bradycardia for which the patient was emergently taken to [facility] for temporary venous pacemaker insertion. Patient was admitted to the hospital service with consults to [facility] and cardiology. 12/20: COVID-19 PCR pending. Patient complains of of gas pains for which he is being treated with simethicone. Patient does not complain of any chest pain, respiratory distress, nausea or vomiting. Blood pressure is better controlled. 12/21: This morning patient seems not be completely paced like yesterday, RN over night apparently decreased the rate of the pacemaker due to an order for a decreased rate but none is found. Patient states his abd discomfort has passed and does not complain of CP/diaphoresis/ n/v or dizziness. EP deneen pending, will obtain coags in the AM Hospitalist Physical - Constitutional Vitals: Temp Pulse Resp BP Pulse Ox 97.8 F 64 17 142/64 98 12/21/20 08:00 12/21/20 11:01 12/21/20 11:01 12/21/20 11:01 12/21/20 11:01 General appearance: Present: no acute distress, well-nourished, obese - EENT Eyes: Present: PERRL, EOM intact ENT: hearing intact, clear oral mucosa, dentition normal - Neck Neck: Present: supple, normal ROM - Respiratory Respiratory effort: normal Respiratory: bilateral: CTA - Cardiovascular Rhythm: regular Heart Sounds: Present: S1 & S2. Absent: systolic murmur, diastolic murmur - Extremities Extremities: no ischemia, pulses intact, pulses symmetrical, No edema, normal temperature, normal color, Full ROM Peripheral Pulses: within normal limits - Abdominal General gastrointestinal: soft, non-tender, non-distended, normal bowel sounds - Integumentary Integumentary: Present: warm, dry - Psychiatric Psychiatric: appropriate mood/affect, cooperative - Neurologic Neurologic: CNII-XII intact, no focal deficits, moves all extremities - Allied Health Allied health notes reviewed: nursing, RT HEART Score - HEART Score EKG: Non-specific Age: 45-65 Risk factors: 1-2 risk factors Troponin: Troponin T < 0.010 ng/mL (0.00-0.029) 12/20/20 13:10 Troponin: < normal limit - Critical Actions Critical Actions: 4-6 pts:12-16.6% risk of adverse cardiac event. Should be admitted Results - Labs CBC & Chem 7: 12/20/20 02:19 12/20/20 02:19 Labs: Laboratory Last Values WBC 7.8 K/mm3 (4.5-11.0) 12/20/20 02:19 RBC 5.15 M/mm3 (3.65-5.03) H 12/20/20 02:19 Hgb 13.7 gm/dl (11.8-15.2) 12/20/20 02:19 Hct 40.3 % (35.5-45.6) 12/20/20 02:19 MCV 78 fl (84-94) L 12/20/20 02:19 MCH 27 pg (28-32) L 12/20/20 02:19 MCHC 34 % (32-34) 12/20/20 02:19 RDW 15.4 % (13.2-15.2) H 12/20/20 02:19 Plt Count 260 K/mm3 (140-440) 12/20/20 02:19 Lymph % (Auto) 19.9 % (13.4-35.0) 12/20/20 02:19 [place] % (Auto) 13.0 % (0.0-7.3) H 12/20/20 02:19 Eos % (Auto) 1.2 % (0.0-4.3) 12/20/20 02:19 Baso % (Auto) 0.3 % (0.0-1.8) 12/20/20 02:19 Lymph # (Auto) 1.6 K/mm3 (1.2-5.4) 12/20/20 02:19 [place] # (Auto) 1.0 K/mm3 (0.0-0.8) H 12/20/20 02:19 Eos # (Auto) 0.1 K/mm3 (0.0-0.4) 12/20/20 02:19 Baso # (Auto) 0.0 K/mm3 (0.0-0.1) 12/20/20 02:19 Seg Neutrophils % 65.6 % (40.0-70.0) 12/20/20 02:19 Seg Neutrophils # 5.1 K/mm3 (1.8-7.7) 12/20/20 02:19 PT 17.4 Sec. (12.2-14.9) H 12/19/20 13:34 INR 1.44 (0.87-1.13) H 12/19/20 13:34 APTT 32.8 Sec. (24.2-36.6) 12/19/20 13:34 Sodium 139 mmol/L (137-145) 12/20/20 02:19 Potassium 4.2 mmol/L (3.6-5.0) 12/20/20 02:19 Chloride 101.1 mmol/L (98-107) 12/20/20 02:19 Carbon Dioxide 28 mmol/L (22-30) 12/20/20 02:19 Anion Gap 14 mmol/L 12/20/20 02:19 BUN 11 mg/dL (9-20) 12/20/20 02:19 Creatinine 1.1 mg/dL (0.8-1.3) 12/20/20 02:19 Estimated GFR > 60 ml/min 12/20/20 02:19 BUN/Creatinine Ratio 10 % 12/20/20 02:19 Glucose 99 mg/dL (75-100) 12/20/20 02:19 Hemoglobin A1c 5.1 % (4-6) 12/20/20 02:19 Calcium 9.2 mg/dL (8.4-10.2) 12/20/20 02:19 Magnesium 2.30 mg/dL (1.7-2.3) 12/19/20 13:34 Total Bilirubin 0.40 mg/dL (0.1-1.2) 12/20/20 02:19 Direct Bilirubin < 0.2 mg/dL (0-0.2) 12/19/20 13:34 Indirect Bilirubin 0.2 mg/dL 12/19/20 13:34 AST 22 units/L (5-40) 12/20/20 02:19 ALT 30 units/L (7-56) 12/20/20 02:19 Alkaline Phosphatase 82 units/L (35-129) 12/20/20 02:19 Total Creatine Kinase 503 units/L (55-170) H 12/19/20 13:34 CK-MB (CK-2) 7.8 ng/mL (0.0-4.0) H 12/19/20 13:34 CK-MB (CK-2) Rel Index 1.5 (0-4) 12/19/20 13:34 Troponin T < 0.010 ng/mL (0.00-0.029) 12/20/20 13:10 NT-Pro-B Natriuret Pep 45.95 pg/mL (0-450) 12/19/20 13:34 Total Protein 6.7 g/dL (6.3-8.2) 12/20/20 02:19 Albumin 4.2 g/dL (3.9-5) 12/20/20 02:19 Albumin/Globulin Ratio 1.7 % 12/20/20 02:19 TSH 1.320 mlU/mL (0.270-4.200) 12/19/20 13:34 Free T4 1.05 ng/dL (0.76-1.46) 12/19/20 13:34 Urine Color Yellow (Yellow) 12/19/20 18:50 Urine Turbidity Clear (Clear) 12/19/20 18:50 Urine pH 5.0 (5.0-7.0) 12/19/20 18:50 Ur Specific [place] 1.012 (1.003-1.030) 12/19/20 18:50 Urine Protein 100 mg/dl mg/dL (Negative) 12/19/20 18:50 Urine Glucose (UA) Neg mg/dL (Negative) 12/19/20 18:50 Urine Ketones Neg mg/dL (Negative) 12/19/20 18:50 Urine Blood Sm (Negative) 12/19/20 18:50 Urine Nitrite Neg (Negative) 12/19/20 18:50 Urine Bilirubin Neg (Negative) 12/19/20 18:50 Urine Urobilinogen < 2.0 mg/dL (<2.0) 12/19/20 18:50 Ur Leukocyte Esterase Neg (Negative) 12/19/20 18:50 Urine WBC (Auto) 1.0 /HPF (0.0-6.0) 12/19/20 18:50 Urine RBC (Auto) 2.0 /HPF (0.0-6.0) 12/19/20 18:50 U Epithel Cells (Auto) < 1.0 /HPF (0-13.0) 12/19/20 18:50 Urine Mucus Few /HPF 12/19/20 18:50 Urine Opiates Screen Negative 12/19/20 18:50 Urine Methadone Screen Negative 12/19/20 18:50 Ur Barbiturates Screen Negative 12/19/20 18:50 Ur Phencyclidine Scrn Negative 12/19/20 18:50 Ur Amphetamines Screen Negative 12/19/20 18:50 U Benzodiazepines Scrn Negative 12/19/20 18:50 Urine Cocaine Screen Negative 12/19/20 18:50 U Marijuana (THC) Screen Negative 12/19/20 18:50 Drugs of Abuse Note Disclamer 12/19/20 18:50 Coronavirus (PCR) Negative (Negative) 12/20/20 Unknown Lim/IV: Voiding Method Urinal Active Medications - Current Medications Current Medications: Generic Name Dose Route Start Last Admin Trade Name Freq PRN Reason Stop Dose Admin Acetaminophen 650 mg 12/19/20 23:37 12/20/20 21:05 Acetaminophen 325 Mg Tab PO 650 mg Q4H PRN Administration Pain MILD(1-3)/Fever >100.5/YAO Aspirin 325 mg 12/19/20 16:00 12/21/20 10:06 Aspirin 325 Mg Tab PO 325 mg QDAY ISRAEL Administration Famotidine 20 mg 12/20/20 10:00 12/21/20 10:06 Famotidine 20 Mg/2 Ml Inj IV 20 mg BID ISRAEL Administration Heparin Sodium (Porcine) 5,000 unit 12/20/20 10:00 12/21/20 10:06 Heparin 5,000 Unit/1 Ml Vial SUB-Q 5,000 unit Q12HR IS[place]EL Administration Hydralazine HCl 50 mg 12/19/20 23:45 12/21/20 06:26 Hydralazine 25 Mg Tab PO 50 mg Q8HR [place] Administration Hydromorphone HCl 0.5 mg 12/19/20 23:37 12/20/20 14:54 Hydromorphone 1 Mg/1 Ml Inj IV 0.5 mg Q3H PRN Administration Pain , Severe (7-10) Metoclopramide HCl 10 mg 12/19/20 23:37 Metoclopramide 10 Mg/2 Ml Inj IV Q6H PRN Nausea And Vomiting Nifedipine 60 mg 12/19/20 22:00 12/21/20 10:06 Nifedipine Xl 60 Mg Tab PO 60 mg Q12HR [place] Administration Ondansetron HCl 4 mg 12/19/20 23:37 Ondansetron 4 Mg/2 Ml Inj IV Q8H PRN Nausea And Vomiting Oxycodone/Acetaminophen 1 tab 12/19/20 23:37 Oxycodone /Acetaminophen 5-325mg Tab PO Q6H PRN Pain, Moderate (4-6) Simethicone 80 mg 12/20/20 02:29 12/20/20 03:04 Simethicone 80 Mg Chew Tab PO 80 mg Q6H PRN Administration Gas pain Sodium Chloride 10 ml 12/20/20 10:00 12/21/20 10:17 Sodium Chloride 0.9% 10 Ml Flush Syringe IV 10 ml BID IS[place] Administration Sodium Chloride 10 ml 12/19/20 23:37 Sodium Chloride 0.9% 10 Ml Flush Syringe IV PRN PRN LINE FLUSH Valsartan 160 mg 12/19/20 23:45 12/21/20 10:05 Valsartan 160mg Tab PO 160 mg Q12HR IS[place] Administration
--- NOTE | 2020-12-21 11:38 | Progress Note ---
Assessment and Plan 45 y/o obese male with complete heart block 12/21/20: I am not able to find an order that states the rate on the PM should have been changed from 40 to 60. Will ask cardiology about this. So far patient is stable. Will continue ICU monitoring for now. 1. Pacemaker placement per cards 2. Needs outpatient PSG 3. Weight loss 4. Continue ICU monitoring CCT 31 minutes. Subjective Date of service: 12/21/20 Interval history: No acute events. HR stable in 60's. RN from last night moved pacer backup/intrinsic rate to 40. Cannot see an order for this in the chart. Yesterday was paced at 60 all day. BP stable. Objective - Constitutional Vitals: Vital Signs - 12hr 12/20/20 12/20/20 12/21/20 23:40 23:50 00:00 Temperature Pulse Rate 58 L 60 69 Pulse Rate [ From Monitor] Respiratory 16 16 18 Rate Blood Pressure 174/66 174/66 149/76 O2 Sat by Pulse 98 98 98 Oximetry 12/21/20 12/21/20 12/21/20 00:02 00:10 00:11 Temperature Pulse Rate 70 58 L 59 L Pulse Rate [ 59 L From Monitor] Respiratory 17 15 Rate Blood Pressure 149/76 149/76 149/76 O2 Sat by Pulse 98 96 Oximetry 12/21/20 12/21/20 12/21/20 00:20 00:30 00:40 Temperature Pulse Rate 60 62 68 Pulse Rate [ From Monitor] Respiratory 18 20 16 Rate Blood Pressure 149/76 180/157 180/157 O2 Sat by Pulse 98 99 99 Oximetry 12/21/20 12/21/20 12/21/20 00:50 01:00 01:10 Temperature Pulse Rate 61 71 59 L Pulse Rate [ From Monitor] Respiratory 15 13 19 Rate Blood Pressure 180/157 171/69 171/69 O2 Sat by Pulse 99 98 99 Oximetry 12/21/20 12/21/20 12/21/20 01:20 01:30 01:40 Temperature Pulse Rate 60 62 65 Pulse Rate [ From Monitor] Respiratory 18 18 13 Rate Blood Pressure 171/69 171/69 O2 Sat by Pulse 98 99 98 Oximetry 12/21/20 12/21/20 12/21/20 01:50 02:00 02:10 Temperature Pulse Rate 68 61 69 Pulse Rate [ From Monitor] Respiratory 17 18 18 Rate Blood Pressure 150/55 150/55 119/70 O2 Sat by Pulse 97 99 98 Oximetry 12/21/20 12/21/20 12/21/20 02:20 02:30 02:40 Temperature Pulse Rate 63 62 65 Pulse Rate [ From Monitor] Respiratory 13 20 12 Rate Blood Pressure 119/70 119/70 138/78 O2 Sat by Pulse 98 99 92 Oximetry 12/21/20 12/21/20 12/21/20 02:50 03:00 03:10 Temperature Pulse Rate 55 L 51 L 61 Pulse Rate [ From Monitor] Respiratory 12 19 13 Rate Blood Pressure 138/78 123/64 123/64 O2 Sat by Pulse 99 98 99 Oximetry 12/21/20 12/21/20 12/21/20 03:13 03:20 03:25 Temperature 98.3 F Pulse Rate 60 59 L Pulse Rate [ 59 L From Monitor] Respiratory 15 16 Rate Blood Pressure 104/74 O2 Sat by Pulse 97 98 Oximetry 12/21/20 12/21/20 12/21/20 03:30 03:40 03:50 Temperature Pulse Rate 60 68 63 Pulse Rate [ From Monitor] Respiratory 16 23 13 Rate Blood Pressure 108/72 108/72 108/72 O2 Sat by Pulse 99 99 96 Oximetry 12/21/20 12/21/20 12/21/20 04:00 04:10 04:20 Temperature Pulse Rate 63 65 63 Pulse Rate [ From Monitor] Respiratory 14 14 17 Rate Blood Pressure 123/78 123/78 123/78 O2 Sat by Pulse 98 98 98 Oximetry 12/21/20 12/21/20 12/21/20 04:30 04:40 04:50 Temperature Pulse Rate 65 63 61 Pulse Rate [ From Monitor] Respiratory 13 16 17 Rate Blood Pressure 123/78 118/92 118/92 O2 Sat by Pulse 97 99 98 Oximetry 12/21/20 12/21/20 12/21/20 05:00 05:10 05:20 Temperature Pulse Rate 65 67 64 Pulse Rate [ From Monitor] Respiratory 15 12 17 Rate Blood Pressure 118/92 129/79 129/79 O2 Sat by Pulse 98 98 100 Oximetry 12/21/20 12/21/20 12/21/20 05:30 05:40 05:50 Temperature Pulse Rate 67 65 66 Pulse Rate [ From Monitor] Respiratory 12 16 13 Rate Blood Pressure 129/79 147/81 147/81 O2 Sat by Pulse 97 98 95 Oximetry 12/21/20 12/21/20 12/21/20 06:00 06:10 06:15 Temperature Pulse Rate 66 69 69 Pulse Rate [ 59 L From Monitor] Respiratory 11 L 15 16 Rate Blood Pressure 147/81 149/68 O2 Sat by Pulse 99 94 98 Oximetry 12/21/20 12/21/20 12/21/20 06:20 06:26 06:30 Temperature Pulse Rate 65 68 64 Pulse Rate [ From Monitor] Respiratory 16 19 Rate Blood Pressure 149/68 149/68 142/71 O2 Sat by Pulse 99 99 Oximetry 12/21/20 12/21/20 12/21/20 06:40 06:50 07:00 Temperature Pulse Rate 66 68 64 Pulse Rate [ From Monitor] Respiratory 10 L 18 17 Rate Blood Pressure 149/68 149/68 150/75 O2 Sat by Pulse 98 98 99 Oximetry 12/21/20 12/21/20 12/21/20 07:10 07:20 07:30 Temperature Pulse Rate 65 64 65 Pulse Rate [ From Monitor] Respiratory 14 14 14 Rate Blood Pressure 150/75 150/75 152/62 O2 Sat by Pulse 93 97 Oximetry 12/21/20 12/21/20 12/21/20 07:40 07:50 08:00 Temperature 97.8 F Pulse Rate 66 67 67 Pulse Rate [ 65 From Monitor] Respiratory 13 16 18 Rate Blood Pressure 152/62 152/62 152/62 O2 Sat by Pulse 97 96 96 Oximetry 12/21/20 12/21/20 12/21/20 08:10 08:20 08:30 Temperature Pulse Rate 65 66 67 Pulse Rate [ From Monitor] Respiratory 19 11 L 17 Rate Blood Pressure 135/68 135/68 151/83 O2 Sat by Pulse 93 97 96 Oximetry 12/21/20 12/21/20 12/21/20 08:40 08:50 09:00 Temperature Pulse Rate 65 69 64 Pulse Rate [ From Monitor] Respiratory 14 25 H 10 L Rate Blood Pressure 151/83 151/83 135/66 O2 Sat by Pulse 96 95 100 Oximetry 12/21/20 12/21/20 12/21/20 09:10 09:20 09:30 Temperature Pulse Rate 93 H 66 76 Pulse Rate [ From Monitor] Respiratory 23 16 12 Rate Blood Pressure 135/66 135/66 143/86 O2 Sat by Pulse 99 97 100 Oximetry 12/21/20 12/21/20 12/21/20 09:40 09:50 10:00 Temperature Pulse Rate 64 62 63 Pulse Rate [ From Monitor] Respiratory 10 L 13 15 Rate Blood Pressure 143/86 143/86 143/86 O2 Sat by Pulse 100 93 93 Oximetry 12/21/20 12/21/20 12/21/20 10:05 10:10 10:20 Temperature Pulse Rate 63 59 L Pulse Rate [ From Monitor] Respiratory 13 Rate Blood Pressure 140/71 143/86 143/86 O2 Sat by Pulse 97 97 Oximetry 12/21/20 12/21/20 12/21/20 10:30 10:40 10:50 Temperature Pulse Rate 61 Pulse Rate [ From Monitor] Respiratory 10 L Rate Blood Pressure 153/63 153/63 153/63 O2 Sat by Pulse 98 93 100 Oximetry 12/21/20 11:01 Temperature Pulse Rate 64 Pulse Rate [ From Monitor] Respiratory 17 Rate Blood Pressure 142/64 O2 Sat by Pulse 98 Oximetry - Labs CBC & Chem 7: 12/20/20 02:19 12/20/20 02:19 Medications & Allergies - Medications Allergies/Adverse Reactions: Allergies No Known Allergies Allergy (Verified 12/19/20 14:00) Home Medications: Home Medications Medication Instructions Recorded Confirmed Last Taken Type No Known Home Medications [No 12/19/20 12/19/20 Unknown History Reported Home Medications] Active Medications: Generic Name Dose Route Start Last Admin Trade Name Freq PRN Reason Stop Dose Admin Acetaminophen 650 mg 12/19/20 23:37 12/20/20 21:05 Acetaminophen 325 Mg Tab PO 650 mg Q4H PRN Administration Pain MILD(1-3)/Fever >100.5/YAO Aspirin 325 mg 12/19/20 16:00 12/21/20 10:06 Aspirin 325 Mg Tab PO 325 mg QDAY ISRA[place] Administration Famotidine 20 mg 12/20/20 10:00 12/21/20 10:06 Famotidine 20 Mg/2 Ml Inj IV 20 mg BID [place] Administration Heparin Sodium (Porcine) 5,000 unit 12/20/20 10:00 12/21/20 10:06 Heparin 5,000 Unit/1 Ml Vial SUB-Q 5,000 unit Q12HR [place] Administration Hydralazine HCl 50 mg 12/19/20 23:45 12/21/20 06:26 Hydralazine 25 Mg Tab PO 50 mg Q8HR [place] Administration Hydromorphone HCl 0.5 mg 12/19/20 23:37 12/20/20 14:54 Hydromorphone 1 Mg/1 Ml Inj IV 0.5 mg Q3H PRN Administration Pain , Severe (7-10) Metoclopramide HCl 10 mg 12/19/20 23:37 Metoclopramide 10 Mg/2 Ml Inj IV Q6H PRN Nausea And Vomiting Nifedipine 60 mg 12/19/20 22:00 12/21/20 10:06 Nifedipine Xl 60 Mg Tab PO 60 mg Q12HR [place] Administration Ondansetron HCl 4 mg 12/19/20 23:37 Ondansetron 4 Mg/2 Ml Inj IV Q8H PRN Nausea And Vomiting Oxycodone/Acetaminophen 1 tab 12/19/20 23:37 Oxycodone /Acetaminophen 5-325mg Tab PO Q6H PRN Pain, Moderate (4-6) Simethicone 80 mg 12/20/20 02:29 12/20/20 03:04 Simethicone 80 Mg Chew Tab PO 80 mg Q6H PRN Administration Gas pain Sodium Chloride 10 ml 12/20/20 10:00 12/21/20 10:17 Sodium Chloride 0.9% 10 Ml Flush Syringe IV 10 ml BID [place] Administration Sodium Chloride 10 ml 12/19/20 23:37 Sodium Chloride 0.9% 10 Ml Flush Syringe IV PRN PRN LINE FLUSH Valsartan 160 mg 12/19/20 23:45 12/21/20 10:05 Valsartan 160mg Tab PO 160 mg Q12HR [place] Administration HEART Score - HEART Score EKG: Non-specific Age: 45-65 Risk factors: 1-2 risk factors Troponin: Troponin T < 0.010 ng/mL (0.00-0.029) 12/20/20 13:10 Troponin: < normal limit - Critical Actions Critical Actions: 4-6 pts:12-16.6% risk of adverse cardiac event. Should be admitted
--- NOTE | 2020-12-21 14:58 | Progress Note ---
Subjective Date of service: 12/21/20 Interval history: Cardiology Follow-up tele intermittent pacing appears CHB with improved escape rhythm 60s, pacer turned to 40bpm Echo shows normal EF 50-55%, no significant valve disease. Plan likely permanent PPM. Will need sleep study. Optimize BP. History of Present Illness Consult date: 12/19/20 Consult reason: bradycardia History of present illness: Patient is a 45-year-old man who is morbidly obese, denies any prior cardiac history, presented to the hospital with symptomatic bradycardia. EKG in the emergency room was sinus rhythm with complete heart block and a ventricular escape at 40. There was transient return to a sinus tachycardia with one-to-one conduction following intravenous atropine, but he soon reverted back to complete A-V dissociation. Cardiology consultation was requested, and we recommended urgent temporary transvenous pacemaker placement. A transvenous pacemaker was successfully deployed via the right femoral vein, with excellent pacing thresholds. Patient is admitted to the CCU for further observation. Patient denies any prior medical history, is on no medications. Although he denies a history of hypertension his systolic blood pressure has been markedly elevated during this presentation, consistently over 200 systolic. Laboratory exam shows a normal potassium of 4.0, normal magnesium of 2.3, and normal TSH of 1.3. There was a mild increase in his CPK of 500, but the troponin level was franchesca Objective Vital Signs Temp Pulse Pulse Resp BP Pulse Ox 12/21/20 14:08 62 155/75 12/21/20 14:00 66 63 15 132/69 100 12/21/20 13:50 62 13 132/69 100 12/21/20 13:40 64 14 132/69 100 12/21/20 13:30 62 22 132/69 97 12/21/20 13:20 61 10 L 126/59 96 12/21/20 13:10 60 15 126/59 97 12/21/20 13:00 59 L 14 134/71 94 12/21/20 12:50 67 14 134/71 97 12/21/20 12:40 60 15 156/81 94 12/21/20 12:30 65 15 105/87 96 12/21/20 12:20 65 20 105/87 93 12/21/20 12:10 134/71 95 12/21/20 12:00 61 105/87 92 12/21/20 11:50 105/87 89 05/ 11:40 59 L 17 105/87 99 05/ 11:30 60 11 L 153/63 98 05/ 11:20 64 16 153/63 99 05 11:10 66 13 153/63 100 05 11:01 64 17 142/64 98 05/ 10:50 153/63 100 05 10:40 153/63 93 05 10:30 61 10 L 153/63 98 05 10:20 143/86 97 05 10:10 59 L 13 143/86 97 05/ 10:05 63 140/71 05 10:00 63 15 143/86 93 05 09:50 62 13 143/86 93 05 09:40 64 10 L 143/86 100 05 09:30 76 12 143/86 100 05 09:20 66 16 135/66 97 05 09:10 93 H 23 135/66 99 05/ 09:00 64 10 L 135/66 100 05/ 08:50 69 25 H 151/83 95 05/ 08:40 65 14 151/83 96 05/ 08:30 67 17 151/83 96 05/ 08:20 66 11 L 135/68 97 05 08:10 65 19 135/68 93 05/ 08:00 97.8 F 67 65 18 152/62 96 05/21 07:50 67 16 152/62 96 05/21 07:40 66 13 152/62 97 05//21 07:30 65 14 152/62 97 05/23/21 07:20 64 14 150/75 93 05/23/21 07:10 65 14 150/75 05/21 07:00 64 17 150/75 99 05/21 06:50 68 18 149/68 98 05//21 06:40 66 10 L 149/68 98 05/23/21 06:30 64 19 142/71 99 05/23/21 06:26 68 149/68 05/21 06:20 65 16 149/68 99 05/23/21 06:15 69 59 L 16 98 12/21/20 06:10 69 15 149/68 94 12/21/20 06:00 66 11 L 147/81 99 12/21/20 05:50 66 13 147/81 95 12/21/20 05:40 65 16 147/81 98 12/21/20 05:30 67 12 129/79 97 12/21/20 05:20 64 17 129/79 100 12/21/20 05:10 67 12 129/79 98 12/21/20 05:00 65 15 118/92 98 12/21/20 04:50 61 17 118/92 98 12/21/20 04:40 63 16 118/92 99 12/21/20 04:30 65 13 123/78 97 12/21/20 04:20 63 17 123/78 98 12/21/20 04:10 65 14 123/78 98 12/21/20 04:00 63 14 123/78 98 12/21/20 03:50 63 13 108/72 96 12/21/20 03:40 68 23 108/72 99 12/21/20 03:30 60 16 108/72 99 12/21/20 03:25 59 L 59 L 16 98 12/21/20 03:20 60 15 104/74 97 12/21/20 03:13 98.3 F 12/21/20 03:10 61 13 123/64 99 12/21/20 03:00 51 L 19 123/64 98 12/21/20 02:50 55 L 12 138/78 99 12/21/20 02:40 65 12 138/78 92 12/21/20 02:30 62 20 119/70 99 05 02:20 63 13 119/70 98 12/21/20 02:10 69 18 119/70 98 12/21/20 02:00 61 18 150/55 99 05/ 01:50 68 17 150/55 97 12/21/20 01:40 65 13 98 05/ 01:30 62 18 171/69 99 05/ 01:20 60 18 171/69 98 05/21 01:10 59 L 19 171/69 99 05/ 01:00 71 13 171/69 98 12/21/20 00:50 61 15 180/157 99 05/23/21 00:40 68 16 180/157 99 12/21/20 00:30 62 20 180/157 99 12/21/20 00:20 60 18 149/76 98 12/21/20 00:11 59 L 149/76 12/21/20 00:10 58 L 59 L 15 149/76 96 12/21/20 00:02 70 17 149/76 98 12/21/20 00:00 69 18 149/76 98 12/20/20 23:50 60 16 174/66 98 12/20/20 23:40 58 L 16 174/66 98 12/20/20 23:30 58 L 15 174/66 98 12/20/20 23:20 58 L 17 167/73 98 12/20/20 23:15 59 L 59 L 16 98 12/20/20 23:10 58 L 11 L 167/73 99 12/20/20 23:04 97.8 F 12/20/20 23:00 60 20 167/73 99 12/20/20 22:50 59 L 19 160/80 99 12/20/20 22:40 58 L 12 160/80 99 12/20/20 22:30 56 L 19 160/80 97 12/20/20 22:20 56 L 15 155/77 94 12/20/20 22:10 64 18 155/77 98 12/20/20 22:05 12 12/20/20 22:00 58 L 14 155/77 98 12/20/20 21:50 56 L 11 L 139/83 99 12/20/20 21:40 58 L 19 139/83 99 12/20/20 21:30 56 L 15 139/83 98 12/20/20 21:20 56 L 17 153/79 98 12/20/20 21:10 56 L 25 H 153/79 99 12/20/20 21:08 56 L 153/79 12/20/20 21:05 15 12/20/20 21:00 56 L 58 L 16 128/71 98 12/20/20 20:50 59 L 17 128/71 100 12/20/20 20:40 56 L 18 137/77 100 12/20/20 20:30 58 L 22 137/77 99 12/20/20 20:20 58 L 21 128/71 100 12/20/20 20:10 60 25 H 128/71 99 12/20/20 20:00 58 L 19 128/71 100 12/20/20 19:50 61 14 130/67 98 12/20/20 19:42 97.7 F 12/20/20 19:40 61 17 130/67 99 12/20/20 19:30 58 L 19 130/67 99 12/20/20 19:20 58 L 13 144/72 99 12/20/20 19:10 64 17 144/72 100 12/20/20 19:00 57 L 58 L 18 144/72 99 12/20/20 18:50 60 15 135/67 98 12/20/20 18:40 58 L 22 135/67 99 12/20/20 18:30 56 L 21 135/67 100 12/20/20 18:20 58 L 17 122/105 99 12/20/20 18:10 56 L 13 122/105 100 12/20/20 18:00 56 L 14 161/109 98 12/20/20 17:50 61 13 161/109 98 12/20/20 17:40 56 L 19 161/109 98 12/20/20 17:30 58 L 23 127/70 98 12/20/20 17:20 58 L 22 161/109 99 12/20/20 17:10 60 11 L 161/109 99 12/20/20 17:00 58 L 58 L 11 L 121/71 98 12/20/20 16:50 61 11 L 121/71 99 12/20/20 16:40 61 11 L 121/71 100 12/20/20 16:30 60 16 121/71 99 12/20/20 16:20 56 L 13 140/65 83 L 12/20/20 16:10 56 L 10 L 140/65 97 12/20/20 16:00 97.8 F 56 L 12 140/65 97 12/20/20 15:50 56 L 14 140/65 98 12/20/20 15:40 56 L 12 140/65 99 12/20/20 15:30 56 L 7 L 140/65 98 12/20/20 15:20 56 L 13 133/68 98 12/20/20 15:10 56 L 16 133/68 98 12/20/20 15:00 56 L 22 133/68 97 - Physical Examination General: Appears Well, No Apparent Distress HEENT: Positive: PERRL Neck: Positive: neck supple Neuro: Positive: Grossly Intact Abdomen: Positive: Soft Skin: Positive: Clear Extremities: Absent: edema - Imaging and Cardiology EKG: report reviewed (Complete heart block)
--- NOTE | 2020-12-21 15:19 | Event Note ---
I updated the patients mother, Marilyn Allen at [phone] and informed her that we should know if her son will received a PPM tomorrow after eval from . Again informed her of the visiting hours.
[2020-12-21] MEDS: ACETAMINOPHEN 325 MG TAB PO PRN (20:03)
[2020-12-21] MEDS: SODIUM CHLORIDE 0.9% 500 ML 500 ML IV SCH (21:24)
[2020-12-22] MEDS ORDERED: ZOLPIDEM 5 MG TAB PO ONE (01:45)
[2020-12-22 06:27] LABS: Hematocrit 38.7 % (35.5-45.6); Hemoglobin 13.1 gm/dl (11.8-15.2); Mean Corpuscular HGB Conc 34 % (32-34); Mean Corpuscular Volume 79 fl (84-94); Platelet Count 243 K/mm3 (140-440); Red Blood Count 4.93 M/mm3 (3.65-5.03); Red Cell Distribution Width 15.8 % (13.2-15.2)
[2020-12-22 06:37] LABS: INR 1.55 (0.87-1.13)
[2020-12-22 06:38] LABS: Partial Thromboplastin Time 38.5 Sec. (24.2-36.6)
[2020-12-22] MEDS: hydrALAZINE 25 MG TAB PO SCH ×3 (06:42→22:41)
[2020-12-22 06:47] LABS: BUN/Creatinine Ratio 11; Blood Urea Nitrogen 12 mg/dL (9-20); Calcium 8.6 mg/dL (8.4-10.2); Hemolysis Index 6
--- NOTE | 2020-12-22 10:05 | Progress Note ---
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 ECG in the EMS and ED showed AV block with heart rate in the 20s and bradycardia for which the patient was emergently taken to [facility] for temporary venous pacemaker insertion. Patient was admitted to the hospital service with consults to CCM and cardiology. 12/20: COVID-19 PCR pending. Patient complains of of gas pains for which he is being treated with simethicone. Patient does not complain of any chest pain, respiratory distress, nausea or vomiting. Blood pressure is better controlled. 12/21: This morning patient seems not be completely paced like yesterday, RN overnight apparently decreased the rate of the pacemaker due to an order for a decreased rate but none is found. Patient states his abd discomfort has passed and does not complain of CP/diaphoresis/ n/v or dizziness. EP eval pending, will obtain coags in the AM 12/22: Patient currently in the [facility] for cardiac evaluation. Anticipate pacemaker placement in a.m. Per nursing staff patient reports that he does not take any medications outpatient. I did note that he has an INR of 1.5 will discuss with him again this could be secondary to intrinsic changes. We will look at LFTs. Continue current management Set up to follow with pulmonary outpatient for sleep apnea. And also primary care physician set up. COVID-19 PUI Complete heart block Hypertensive emergency Presyncope (likely related to complete heart block) Secondary coagulopathy with an INR of 1.5 -Cardiology, CCM consulted, appreciate recommendations -Covid PCR negative -S/p atropine x1 in the ED -S/p insertion of transvenous pacemaker -Echocardiogram shows normal-sized left ventricle, left ventricle systolic function normal, ejection fraction edema range of 50 to 55%, normal-sized right ventricle with normal systolic function, sclerotic aortic valve without stenosis, trace to mild VA -Blood pressure monitoring per protocol -Procardia, valsartan, hydralazine PO and as needed hydralazine -Cardiac diet -Serial troponins have been less than 0.01 -Evaluation for PPM -Needs sleep study to r/o LUCIO -Trend CBC, CMP DVT/GI prophylaxis: SCDs to bilateral lower extremities while in bed, heparin subcu Disposition: ICU The high probability of a clinically significant, sudden or life threatening deterioration of the [cardio] system(s) required my full and direct attention, intervention and personal management. The aggregate critical care time was [35] minutes. This time is in addition to time spent performing reported procedures but includes the following: [x] Data Review and interpretation [x] Patient assessment and monitoring of vital signs [x] Documentation [x] Medication orders and management History Interval history: Patient seen and examined no acute distress his symptoms were severe he reports to me that he would like to have a primary care physician. And he also would like to be set up for a sleep apnea study. Hospitalist Physical - Physical exam Narrative exam: -General appearance: Present: no acute distress, well-nourished, obese - EENT Eyes: Present: PERRL, EOM intact ENT: hearing intact, clear oral mucosa, dentition normal - Neck Neck: Present: supple, normal ROM - Respiratory Respiratory effort: normal Respiratory: bilateral: CTA - Cardiovascular Rhythm: regular Heart Sounds: Present: S1 & S2. Absent: systolic murmur, diastolic murmur - Extremities Extremities: no ischemia, pulses intact, pulses symmetrical, No edema, normal temperature, normal color, Full ROM Peripheral Pulses: within normal limits - Abdominal General gastrointestinal: soft, non-tender, non-distended, normal bowel sounds - Integumentary Integumentary: Present: warm, dry, multiple tattoos - Psychiatric Psychiatric: appropriate mood/affect, cooperative - Neurologic Neurologic: CNII-XII intact, no focal deficits, moves all extremities - Allied Health Allied health notes reviewed: nursing, RT - Constitutional Vitals: Temp Pulse Resp BP Pulse Ox 98.7 F 60 17 117/55 98 12/22/20 08:00 12/22/20 08:00 12/22/20 08:00 12/22/20 08:00 12/22/20 08:00 General appearance: Present: no acute distress, well-nourished, obese HEART Score - HEART Score EKG: Non-specific Age: 45-65 Risk factors: 1-2 risk factors Troponin: Troponin T < 0.010 ng/mL (0.00-0.029) 12/20/20 13:10 Troponin: < normal limit - Critical Actions Critical Actions: 4-6 pts:12-16.6% risk of adverse cardiac event. Should be adm itted Results - Labs CBC & Chem 7: 12/22/20 06:15 12/22/20 06:15 Labs: Laboratory Last Values WBC 8.3 K/mm3 (4.5-11.0) 12/22/20 06:15 RBC 4.93 M/mm3 (3.65-5.03) 12/22/20 06:15 Hgb 13.1 gm/dl (11.8-15.2) 12/22/20 06:15 Hct 38.7 % (35.5-45.6) 12/22/20 06:15 MCV 79 fl (84-94) L 12/22/20 06:15 MCH 27 pg (28-32) L 12/22/20 06:15 MCHC 34 % (32-34) 12/22/20 06:15 RDW 15.8 % (13.2-15.2) H 12/22/20 06:15 Plt Count 243 K/mm3 (140-440) 12/22/20 06:15 Lymph % (Auto) 19.9 % (13.4-35.0) 12/20/20 02:19 [place] % (Auto) 13.0 % (0.0-7.3) H 12/20/20 02:19 Eos % (Auto) 1.2 % (0.0-4.3) 12/20/20 02:19 Baso % (Auto) 0.3 % (0.0-1.8) 12/20/20 02:19 Lymph # (Auto) 1.6 K/mm3 (1.2-5.4) 12/20/20 02:19 [place] # (Auto) 1.0 K/mm3 (0.0-0.8) H 12/20/20 02:19 Eos # (Auto) 0.1 K/mm3 (0.0-0.4) 12/20/20 02:19 Baso # (Auto) 0.0 K/mm3 (0.0-0.1) 12/20/20 02:19 Seg Neutrophils % 65.6 % (40.0-70.0) 12/20/20 02:19 Seg Neutrophils # 5.1 K/mm3 (1.8-7.7) 12/20/20 02:19 PT 18.5 Sec. (12.2-14.9) H 12/22/20 06:15 INR 1.55 (0.87-1.13) H 12/22/20 06:15 APTT 38.5 Sec. (24.2-36.6) H 12/22/20 06:15 Sodium 138 mmol/L (137-145) 12/22/20 06:15 Potassium 3.6 mmol/L (3.6-5.0) 12/22/20 06:15 Chloride 103.6 mmol/L (98-107) 12/22/20 06:15 Carbon Dioxide 22 mmol/L (22-30) 12/22/20 06:15 Anion Gap 16 mmol/L 12/22/20 06:15 BUN 12 mg/dL (9-20) 12/22/20 06:15 Creatinine 1.1 mg/dL (0.8-1.3) 12/22/20 06:15 Estimated GFR > 60 ml/min 12/22/20 06:15 BUN/Creatinine Ratio 11 % 12/22/20 06:15 Glucose 111 mg/dL (75-100) H 12/22/20 06:15 POC Glucose 119 mg/dL (70-105) H 12/22/20 03:32 Hemoglobin A1c 5.1 % (4-6) 12/20/20 02:19 Calcium 8.6 mg/dL (8.4-10.2) 12/22/20 06:15 Magnesium 2.30 mg/dL (1.7-2.3) 12/19/20 13:34 Total Bilirubin 0.40 mg/dL (0.1-1.2) 12/20/20 02:19 Direct Bilirubin < 0.2 mg/dL (0-0.2) 12/19/20 13:34 Indirect Bilirubin 0.2 mg/dL 12/19/20 13:34 AST 22 units/L (5-40) 12/20/20 02:19 ALT 30 units/L (7-56) 12/20/20 02:19 Alkaline Phosphatase 82 units/L (35-129) 12/20/20 02:19 Total Creatine Kinase 503 units/L (55-170) H 12/19/20 13:34 CK-MB (CK-2) 7.8 ng/mL (0.0-4.0) H 12/19/20 13:34 CK-MB (CK-2) Rel Index 1.5 (0-4) 12/19/20 13:34 Troponin T < 0.010 ng/mL (0.00-0.029) 12/20/20 13:10 NT-Pro-B Natriuret Pep 45.95 pg/mL (0-450) 12/19/20 13:34 Total Protein 6.7 g/dL (6.3-8.2) 12/20/20 02:19 Albumin 4.2 g/dL (3.9-5) 12/20/20 02:19 Albumin/Globulin Ratio 1.7 % 12/20/20 02:19 TSH 1.320 mlU/mL (0.270-4.200) 12/19/20 13:34 Free T4 1.05 ng/dL (0.76-1.46) 12/19/20 13:34 Urine Color Yellow (Yellow) 12/19/20 18:50 Urine Turbidity Clear (Clear) 12/19/20 18:50 Urine pH 5.0 (5.0-7.0) 12/19/20 18:50 Ur Specific [place] 1.012 (1.003-1.030) 12/19/20 18:50 Urine Protein 100 mg/dl mg/dL (Negative) 12/19/20 18:50 Urine Glucose (UA) Neg mg/dL (Negative) 12/19/20 18:50 Urine Ketones Neg mg/dL (Negative) 12/19/20 18:50 Urine Blood Sm (Negative) 12/19/20 18:50 Urine Nitrite Neg (Negative) 12/19/20 18:50 Urine Bilirubin Neg (Negative) 12/19/20 18:50 Urine Urobilinogen < 2.0 mg/dL (<2.0) 12/19/20 18:50 Ur Leukocyte Esterase Neg (Negative) 12/19/20 18:50 Urine WBC (Auto) 1.0 /HPF (0.0-6.0) 12/19/20 18:50 Urine RBC (Auto) 2.0 /HPF (0.0-6.0) 12/19/20 18:50 U Epithel Cells (Auto) < 1.0 /HPF (0-13.0) 12/19/20 18:50 Urine Mucus Few /HPF 12/19/20 18:50 Urine Opiates Screen Negative 12/19/20 18:50 Urine Methadone Screen Negative 12/19/20 18:50 Ur Barbiturates Screen Negative 12/19/20 18:50 Ur Phencyclidine Scrn Negative 12/19/20 18:50 Ur Amphetamines Screen Negative 12/19/20 18:50 U Benzodiazepines Scrn Negative 12/19/20 18:50 Urine Cocaine Screen Negative 12/19/20 18:50 U Marijuana (THC) Screen Negative 12/19/20 18:50 Drugs of Abuse Note Disclamer 12/19/20 18:50 Coronavirus (PCR) Negative (Negative) 12/20/20 Unknown Blood Type O POSITIVE 12/22/20 06:15 Antibody Screen Negative 12/22/20 06:15 Lim/IV: Voiding Method Urinal Active Medications - Current Medications Current Medications: Generic Name Dose Route Start Last Admin Trade Name Freq PRN Reason Stop Dose Admin Acetaminophen 650 mg 12/19/20 23:37 12/21/20 20:03 Acetaminophen 325 Mg Tab PO 650 mg Q4H PRN Administration Pain MILD(1-3)/Fever >100.5/YAO Aspirin 325 mg 12/19/20 16:00 12/21/20 10:06 Aspirin 325 Mg Tab PO 325 mg QDAY ISRAEL Administration Famotidine 20 mg 12/22/20 10:00 Famotidine 20 Mg Tab PO BID ISRAEL Heparin Sodium (Porcine) 5,000 unit 12/20/20 10:00 12/21/20 21:22 Heparin 5,000 Unit/1 Ml Vial SUB-Q 5,000 unit Q12HR ISRAEL Administration Hydralazine HCl 50 mg 12/19/20 23:45 12/22/20 06:42 Hydralazine 25 Mg Tab PO 50 mg Q8HR IS[place] Administration Hydromorphone HCl 0.5 mg 12/19/20 23:37 12/20/20 14:54 Hydromorphone 1 Mg/1 Ml Inj IV 0.5 mg Q3H PRN Administration Pain , Severe (7-10) Metoclopramide HCl 10 mg 12/19/20 23:37 Metoclopramide 10 Mg/2 Ml Inj IV Q6H PRN Nausea And Vomiting Nifedipine 60 mg 12/19/20 22:00 12/21/20 21:21 Nifedipine Xl 60 Mg Tab PO 60 mg Q12HR ISRAEL Administration Ondansetron HCl 4 mg 12/19/20 23:37 Ondansetron 4 Mg/2 Ml Inj IV Q8H PRN Nausea And Vomiting Oxycodone/Acetaminophen 1 tab 12/19/20 23:37 Oxycodone /Acetaminophen 5-325mg Tab PO Q6H PRN Pain, Moderate (4-6) Simethicone 80 mg 12/20/20 02:29 12/20/20 03:04 Simethicone 80 Mg Chew Tab PO 80 mg Q6H PRN Administration Gas pain Sodium Chloride 10 ml 12/20/20 10:00 12/21/20 21:23 Sodium Chloride 0.9% 10 Ml Flush Syringe IV 10 ml BID ISRAEL Administration Sodium Chloride 10 ml 12/19/20 23:37 Sodium Chloride 0.9% 10 Ml Flush Syringe IV PRN PRN LINE FLUSH Valsartan 160 mg 12/19/20 23:45 12/21/20 21:21 Valsartan 160mg Tab PO 160 mg Q12HR ISRAEL Administration
[2020-12-22] MEDS: fentaNYL 100 MCG/2 ML INJ ONE ×5 (10:16→11:41)
[2020-12-22] MEDS: MIDAZOLAM 2 MG/2 ML INJ ONE ×3 (10:17→10:40)
[2020-12-22] MEDS: LIDOCAINE (2%) 20 MG/1 ML VIAL 20 ML MDV INFILTRATI ONE ×3 (10:17→11:04)
[2020-12-22] MEDS: VERAPAMIL 5 MG/2 ML INJ ONE ×2 (10:18→10:41)
[2020-12-22] MEDS: HEPARIN 10,000 UNITS/10 ML VIAL ONE ×2 (10:18→10:41)
[2020-12-22] MEDS: SODIUM CHLORIDE 0.9% 500 ML 500 ML IV SCH ×2 (10:19→10:40)
[2020-12-22] MEDS: HEPARIN/NS 5000 UNIT/500ML 1,000 ML IR ONE ×2 (10:20→10:40)
[2020-12-22] MEDS: NITROGLYCERIN SYRINGE 6 ML ONE ×3 (10:21→10:41)
--- NOTE | 2020-12-22 11:28 | Progress Note ---
Assessment and Plan 45 y/o obese male with complete heart block 12/22/20: Likely will return back to ICU post cath. Continue CV monitoring as well as hemodynamic monitoring. 12/21/20: I am not able to find an order that states the rate on the PM should have been changed from 40 to 60. Will ask cardiology about this. So far patient is stable. Will continue ICU monitoring for now. 1. Pacemaker placement per cards 2. Needs outpatient PSG 3. Weight loss 4. Continue ICU monitoring CCT 31 minutes. Subjective Date of service: 12/22/20 Interval history: No acute events. Down getting [facility] right now. Per rounds discussion, Device tomorrow. Objective - Constitutional Vitals: Vital Signs - 12hr 12/21/20 12/22/20 12/22/20 23:30 00:00 00:30 Temperature Pulse Rate 62 61 56 L Pulse Rate [ From Monitor] Respiratory 11 L 17 13 Rate Blood Pressure 123/57 128/60 115/68 O2 Sat by Pulse 99 98 95 Oximetry 12/22/20 12/22/20 12/22/20 01:00 01:30 02:00 Temperature Pulse Rate 57 L 55 L 57 L Pulse Rate [ 59 L From Monitor] Respiratory 14 17 17 Rate Blood Pressure 130/63 122/64 122/64 O2 Sat by Pulse 100 98 97 Oximetry 12/22/20 12/22/20 12/22/20 02:30 03:00 03:27 Temperature 98 F Pulse Rate 60 63 Pulse Rate [ From Monitor] Respiratory 21 19 Rate Blood Pressure 113/62 115/52 O2 Sat by Pulse 88 Oximetry 12/22/20 12/22/20 12/22/20 03:30 04:00 04:30 Temperature Pulse Rate 63 64 63 Pulse Rate [ From Monitor] Respiratory 15 12 19 Rate Blood Pressure 111/55 111/55 113/63 O2 Sat by Pulse 98 98 98 Oximetry 12/22/20 12/22/20 12/22/20 05:00 05:30 06:00 Temperature Pulse Rate 65 58 L 59 L Pulse Rate [ 59 L From Monitor] Respiratory 22 17 15 Rate Blood Pressure 113/63 118/54 124/66 O2 Sat by Pulse 96 99 98 Oximetry 12/22/20 12/22/20 12/22/20 06:30 06:42 07:00 Temperature Pulse Rate 56 L 59 L 58 L Pulse Rate [ From Monitor] Respiratory 16 22 Rate Blood Pressure 124/66 132/63 132/63 O2 Sat by Pulse 99 98 Oximetry 12/22/20 12/22/20 07:30 08:00 Temperature 98.7 F Pulse Rate 55 L 60 Pulse Rate [ 58 L From Monitor] Respiratory 16 17 Rate Blood Pressure 124/72 117/55 O2 Sat by Pulse 95 98 Oximetry - Labs CBC & Chem 7: 12/22/20 06:15 12/22/20 06:15 Labs: Abnormal lab results 12/21/20 12/22/20 12/22/20 Range/Units 23:30 03:32 06:15 MCV 79 L (84-94) fl MCH 27 L (28-32) pg RDW 15.8 H (13.2-15.2) % PT (12.2-14.9) Sec. INR (0.87-1.13) APTT (24.2-36.6) Sec. Glucose (75-100) mg/dL POC Glucose 114 H 119 H (70-105) mg/dL 12/22/20 12/22/20 Range/Units 06:15 06:15 MCV (84-94) fl MCH (28-32) pg RDW (13.2-15.2) % PT 18.5 H (12.2-14.9) Sec. INR 1.55 H (0.87-1.13) APTT 38.5 H (24.2-36.6) Sec. Glucose 111 H (75-100) mg/dL POC Glucose (70-105) mg/dL Medications & Allergies - Medications Allergies/Adverse Reactions: Allergies No Known Allergies Allergy (Verified 12/19/20 14:00) Home Medications: Home Medications Medication Instructions Recorded Confirmed Last Taken Type No Known Home Medications [No 12/19/20 12/19/20 Unknown History Reported Home Medications] Active Medications: Generic Name Dose Route Start Last Admin Trade Name Freq PRN Reason Stop Dose Admin Acetaminophen 650 mg 12/19/20 23:37 12/21/20 20:03 Acetaminophen 325 Mg Tab PO 650 mg Q4H PRN Administration Pain MILD(1-3)/Fever >100.5/YAO Aspirin 325 mg 12/19/20 16:00 12/21/20 10:06 Aspirin 325 Mg Tab PO 325 mg QDAY ISRAEL Administration Famotidine 20 mg 12/22/20 10:00 Famotidine 20 Mg Tab PO BID ISRA[place] Heparin Sodium (Porcine) 5,000 unit 12/20/20 10:00 12/21/20 21:22 Heparin 5,000 Unit/1 Ml Vial SUB-Q 5,000 unit Q12HR [place] Administration Hydralazine HCl 50 mg 12/19/20 23:45 12/22/20 06:42 Hydralazine 25 Mg Tab PO 50 mg Q8HR [place] Administration Hydromorphone HCl 0.5 mg 12/19/20 23:37 12/20/20 14:54 Hydromorphone 1 Mg/1 Ml Inj IV 0.5 mg Q3H PRN Administration Pain , Severe (7-10) Metoclopramide HCl 10 mg 12/19/20 23:37 Metoclopramide 10 Mg/2 Ml Inj IV Q6H PRN Nausea And Vomiting Nifedipine 60 mg 12/19/20 22:00 12/21/20 21:21 Nifedipine Xl 60 Mg Tab PO 60 mg Q12HR IS[place] Administration Ondansetron HCl 4 mg 12/19/20 23:37 Ondansetron 4 Mg/2 Ml Inj IV Q8H PRN Nausea And Vomiting Oxycodone/Acetaminophen 1 tab 12/19/20 23:37 Oxycodone /Acetaminophen 5-325mg Tab PO Q6H PRN Pain, Moderate (4-6) Simethicone 80 mg 12/20/20 02:29 12/20/20 03:04 Simethicone 80 Mg Chew Tab PO 80 mg Q6H PRN Administration Gas pain Sodium Chloride 10 ml 12/20/20 10:00 12/21/20 21:23 Sodium Chloride 0.9% 10 Ml Flush Syringe IV 10 ml BID IS[place] Administration Sodium Chloride 10 ml 12/19/20 23:37 Sodium Chloride 0.9% 10 Ml Flush Syringe IV PRN PRN LINE FLUSH Valsartan 160 mg 12/19/20 23:45 12/21/20 21:21 Valsartan 160mg Tab PO 160 mg Q12HR IS[place] Administration HEART Score - HEART Score EKG: Non-specific Age: 45-65 Risk factors: 1-2 risk factors Troponin: Troponin T < 0.010 ng/mL (0.00-0.029) 12/20/20 13:10 Troponin: < normal limit - Critical Actions Critical Actions: 4-6 pts:12-16.6% risk of adverse cardiac event. Should be admitted
[2020-12-22] MEDS ORDERED: traMADol 50 MG TAB PO PRN (11:33)
--- NOTE | 2020-12-22 11:38 | Event Note ---
Date: 12/22/20 Patient underwent cardiac catheterization with coronary geography, we found essentially angiographically normal coronary arteries, right coronary artery was dominant. There was normal left ventricular systolic function. The patient is returned to the CCU, continue total bedrest with right leg immobilized with the temporary pacemaker in place via the right femoral vein. He will be scheduled for permanent pacemaker placement tomorrow.
--- NOTE | 2020-12-22 11:39 | Cardiac Catherization Report ---
DATE OF SERVICE: 12/22/2020 REASON FOR PROCEDURE: The patient is a 45-year-old man who presented with symptomatic bradycardia and complete heart block with ventricular escape rhythm. He was stabilized with a temporary transvenous pacemaker. Today, he was recommended for cardiac catheterization to exclude right coronary ischemia as possible etiology of heart block pending permanent pacemaker placement. PROCEDURES PERFORMED: 1. Left heart catheterization. 2. Selective left and right coronary angiography. 3. Left ventricular angiography. 4. Sedation time start 10:36, end 11:13. I was present for the entire procedure and supervised the moderate sedation protocol. DESCRIPTION OF PROCEDURE: The patient was prepped and draped in a sterile fashion after informed consent, the right radial cath site was prepped and draped after negative Chad's test. The right radial artery was entered using Seldinger technique followed by placement of a 6-Malagasy hydrophilic sheath. Routine radial cocktail was administered via the sheath. We successfully completed left coronary angiography using a 3.5 left Parisa. Due to severe tortuosity of the neck vessels, the right coronary angiography could not be performed and completed via the radial approach, due to inability to torque the catheters. We then made the decision after multiple attempts to complete the coronary angiography via the femoral approach. The left femoral artery was then entered using Seldinger technique followed by placement of a 6-Malagasy sheath. We then were successfully able to cannulate the right coronary artery using a 4 right Parisa catheter. The right Parisa catheter was also used for left ventricular angiography using a hand injection. The catheters were then removed, sheath removed, hemostasis at the left femoral site was done using an Angio-Seal device and at the right radial with manual compression. There were no complications. The patient was returned to the postprocedure unit in stable condition. FINDINGS: HEMODYNAMICS: Left ventricular end diastolic pressure was 27, following coronary angiography. Ascending aortic pressure 139/73. There was no significant pressure gradient on pullback across the aortic valve. CORONARY ANGIOGRAPHY: The left main coronary artery was angiographically normal. The left anterior descending artery and its diagonal branches were free of significant disease. The circumflex artery and its obtuse marginal branches were free of significant disease. The right coronary artery was dominant and similarly, free of significant disease. There was normal left ventricular systolic function with ejection fraction greater than 55-60% following an extra systolic beats. CONCLUSION: 1. No significant coronary artery disease, essentially, angiographically near normal coronary arteries. 2. Normal left ventricular systolic function, ejection fraction 55-60%. RECOMMENDATIONS: Risk factor modification and medical therapy. TID: [id number] RECEIPT: [id number] CA/KDA
[2020-12-22] MEDS ORDERED: SODIUM CHLORIDE 0.9% 1000 ML 1,000 ML IV SCH (11:45)
--- NOTE | 2020-12-22 11:46 | Electrocardiograph Report ---
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 Biatrial enlargement RBBB and LPFB No previous ECG available for comparison Electronically Signed On 12-22-2020 11:46:14 EDT by Bharat Marcial
--- NOTE | 2020-12-22 11:49 | Electrocardiograph Report ---
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 Electronically Signed On 12-22-2020 11:49:30 EDT by Bharat Marcial
[2020-12-22] MEDS: VALSARTAN 160MG TAB PO SCH ×2 (13:09→22:41)
[2020-12-22] MEDS: HEPARIN 5,000 UNIT/1 ML VIAL SUB-Q SCH ×2 (13:12→22:40)
[2020-12-22] MEDS: FAMOTIDINE 20 MG TAB PO SCH ×2 (13:12→22:40)
[2020-12-22] MEDS: NIFEdipine XL 60 MG TAB PO SCH ×2 (13:22→22:41)
[2020-12-22 15:10] LABS: Albumin 3.5 g/dL (3.9-5); Bilirubin,Direct 0.2 mg/dL (0-0.2)
[2020-12-22] MEDS: ASPIRIN 325 MG TAB PO SCH (15:41)
--- NOTE | 2020-12-22 21:07 | Consultation ---
History of Present Illness Consult date: 12/22/20 Consult reason: bradycardia History of present illness: 45-year-old obese man with no previous medical history presented to the hospital with symptomatic bradycardia. EKG in the emergency room revealed sinus rhythm with complete heart block and junctional escape rhythm in the low 40s. He urgently underwent temporary pacemaker insertion and was admitted to ICU. Patient denies any prior medical history, is on no medications. Although he den ies a history of hypertension his systolic blood pressure has been markedly elevated during this presentation. He underwent LHC today which revealed no significant CAD and normal LV systolic function. Echo has revealed normal LVEF and no significant valvular lesions. His rhythm this morning appeared to be sinus rhythm with complete heart block and junctional rhythm in the 60s. Past History Past Medical History: No medical history Past Surgical History: No surgical history Social history: no significant social history Family history: no significant family history Medications and Allergies Allergies Allergy/AdvReac Type Severity Reaction Status Date / Time No Known Allergies Allergy Verified 12/19/20 14:00 Home Medications Medication Instructions Recorded Confirmed Last Taken Type No Known Home Medications [No 12/19/20 12/19/20 Unknown History Reported Home Medications] Active Meds: Active Medications Acetaminophen (Acetaminophen 325 Mg Tab) 650 mg PO Q4H PRN PRN Reason: Pain MILD(1-3)/Fever >100.5/YAO Last Admin: 12/21/20 20:03 Dose: 650 mg Documented by: Aspirin (Aspirin 325 Mg Tab) 325 mg PO QDAY [facility] Last Admin: 12/22/20 15:41 Dose: Not Given Documented by: Famotidine (Famotidine 20 Mg Tab) 20 mg PO BID [facility] Last Admin: 12/22/20 13:12 Dose: 20 mg Documented by: Heparin Sodium (Porcine) (Heparin 5,000 Unit/1 Ml Vial) 5,000 unit SUB-Q Q12HR [facility] Last Admin: 12/22/20 13:12 Dose: 5,000 unit Documented by: Hydralazine HCl (Hydralazine 25 Mg Tab) 50 mg PO Q8HR [facility] Last Admin: 12/22/20 15:40 Dose: 50 mg Documented by: Hydromorphone HCl (Hydromorphone 1 Mg/1 Ml Inj) 0.5 mg IV Q3H PRN PRN Reason: Pain , Severe (7-10) Last Admin: 12/20/20 14:54 Dose: 0.5 mg Documented by: Sodium Chloride (Nacl 0.9% 1000 Ml) 1,000 mls @ 100 mls/hr IV DIRECT [facility] Stop: 12/22/20 21:44 Metoclopramide HCl (Metoclopramide 10 Mg/2 Ml Inj) 10 mg IV Q6H PRN PRN Reason: Nausea And Vomiting Nifedipine (Nifedipine Xl 60 Mg Tab) 60 mg PO Q12HR [facility] Last Admin: 12/22/20 13:22 Dose: 60 mg Documented by: Ondansetron HCl (Ondansetron 4 Mg/2 Ml Inj) 4 mg IV Q8H PRN PRN Reason: Nausea And Vomiting Oxycodone/Acetaminophen (Oxycodone /Acetaminophen 5-325mg Tab) 1 tab PO Q6H PRN PRN Reason: Pain, Moderate (4-6) Simethicone (Simethicone 80 Mg Chew Tab) 80 mg PO Q6H PRN PRN Reason: Gas pain Last Admin: 12/20/20 03:04 Dose: 80 mg Documented by: Sodium Chloride (Sodium Chloride 0.9% 10 Ml Flush Syringe) 10 ml IV BID [facility] Last Admin: 12/22/20 13:13 Dose: 10 ml Documented by: Sodium Chloride (Sodium Chloride 0.9% 10 Ml Flush Syringe) 10 ml IV PRN PRN PRN Reason: LINE FLUSH Tramadol HCl (Tramadol 50 Mg Tab) 50 mg PO Q4H PRN PRN Reason: Pain, Mild (1-3) Valsartan (Valsartan 160mg Tab) 160 mg PO Q12HR [facility] Last Admin: 12/22/20 13:09 Dose: 160 mg Documented by: Review of Systems All systems: negative Physical Examination Vital Signs Pulse Resp BP Pulse Ox 50 L 8 L 165/81 98 12/19/20 13:30 12/19/20 13:30 12/19/20 13:30 12/19/20 13:30 General appearance: obese HEENT: Positive: PERRL Cardiac: Positive: Regular Rhythm, Bradycardia Lungs: Positive: clear to auscultation Neuro: Positive: Grossly Intact Abdomen: Positive: Soft, Active Bowel Sounds Extremities: Present: normal Results 12/22/20 06:15 12/22/20 06:15 Cardiac Enzymes 12/22/20 Range/Units 06:15 AST 33 (5-40) units/L Coagulation 12/22/20 Range/Units 06:15 PT 18.5 H (12.2-14.9) Sec. INR 1.55 H (0.87-1.13) APTT 38.5 H (24.2-36.6) Sec. CBC 12/22/20 Range/Units 06:15 WBC 8.3 (4.5-11.0) K/mm3 RBC 4.93 (3.65-5.03) M/mm3 Hgb 13.1 (11.8-15.2) gm/dl Hct 38.7 (35.5-45.6) % Plt Count 243 (140-440) K/mm3 Comprehensive Metabolic Panel 12/22/20 12/22/20 Range/Units 06:15 06:15 Sodium 138 (137-145) mmol/L Potassium 3.6 (3.6-5.0) mmol/L Chloride 103.6 (98-107) mmol/L Carbon Dioxide 22 (22-30) mmol/L BUN 12 (9-20) mg/dL Creatinine 1.1 (0.8-1.3) mg/dL Glucose 111 H (75-100) mg/dL Calcium 8.6 (8.4-10.2) mg/dL Direct Bilirubin 0.2 (0-0.2) mg/dL Indirect Bilirubin 0.5 mg/dL AST 33 (5-40) units/L ALT 37 (7-56) units/L Alkaline Phosphatase 77 (35-129) units/L Total Protein 7.4 (6.3-8.2) g/dL Albumin 3.5 L (3.9-5) g/dL Assessment and Plan Complete heart block with junctional escape rhythm Elevated BP with likely underlying hypertension Recommend: Permanent PPM implant tomorrow - extensively discussed with patient and informed consent. Dr. Beauchamp will perform procedure tomorrow.
[2020-12-22] MEDS: ACETAMINOPHEN 325 MG TAB PO PRN (22:43)
[2020-12-23] MEDS: hydrALAZINE 25 MG TAB PO SCH ×3 (05:53→21:49)
--- NOTE | 2020-12-23 08:29 | Progress Note ---
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 ECG in the EMS and ED showed AV block with heart rate in the 20s and bradycardia for which the patient was emergently taken to [facility] for temporary venous pacemaker insertion. Patient was admitted to the hospital service with consults to CCM and cardiology. 12/20: COVID-19 PCR pending. Patient complains of of gas pains for which he is being treated with simethicone. Patient does not complain of any chest pain, respiratory distress, nausea or vomiting. Blood pressure is better controlled. 12/21: This morning patient seems not be completely paced like yesterday, RN overnight apparently decreased the rate of the pacemaker due to an order for a decreased rate but none is found. Patient states his abd discomfort has passed and does not complain of CP/diaphoresis/ n/v or dizziness. EP eval pending, will obtain coags in the AM 12/22: Patient currently in the [facility] for cardiac evaluation. Anticipate pacemaker placement in a.m. Per nursing staff patient reports that he does not take any medications outpatient. I did note that he has an INR of 1.5 will discuss with him again this could be secondary to intrinsic changes. We will look at LFTs. Continue current management Set up to follow with pulmonary outpatient for sleep apnea. And also primary care physician set up. 12/23: Continue supportive care, no new issues reported but apprehensive still about Possible LUCIO, as he hears his snoring on sudden waking up. Going for PPM today. Will obtain an ABG to assess CO2 status COVID-19 PUI Complete heart block Hypertensive emergency Obesity- Morbid Presyncope (likely related to complete heart block) Secondary coagulopathy with an INR of 1.5 -Cardiology, CCM consulted, appreciate recommendations -Covid PCR negative -S/p atropine x1 in the ED -S/p insertion of transvenous pacemaker -Echocardiogram shows normal-sized left ventricle, left ventricle systolic function normal, ejection fraction edema range of 50 to 55%, normal-sized right ventricle with normal systolic function, sclerotic aortic valve without stenosis, trace to mild WA -Blood pressure monitoring per protocol -Procardia, valsartan, hydralazine PO and as needed hydralazine -Cardiac diet -Serial troponins have been less than 0.01 -Evaluation for PPM -Needs sleep study to r/o LUCIO -Trend CBC, CMP DVT/GI prophylaxis: SCDs to bilateral lower extremities while in bed, heparin subcu Disposition: ICU The high probability of a clinically significant, sudden or life threatening deterioration of the [cardio] system(s) required my full and direct attention, intervention and personal management. The aggregate critical care time was [35] minutes. This time is in addition to time spent performing reported procedures but includes the following: [x] Data Review and interpretation [x] Patient assessment and monitoring of vital signs [x] Documentation [x] Medication orders and management History Interval history: Patient seen and examined no acute distress his symptoms were severe he reports to me that he would like to have a primary care physician. NO New complaints And he also would like to be set up for a sleep apnea study. Hospitalist Physical - Physical exam Narrative exam: -General appearance: Present: no acute distress, well-nourished, obese - EENT Eyes: Present: PERRL, EOM intact ENT: hearing intact, clear oral mucosa, dentition normal - Neck Neck: Present: supple, normal ROM - Respiratory Respiratory effort: normal Respiratory: bilateral: CTA - Cardiovascular Rhythm: regular Heart Sounds: Present: S1 & S2. Absent: systolic murmur, diastolic murmur - Extremities Extremities: no ischemia, pulses intact, pulses symmetrical, No edema, normal temperature, normal color, Full ROM Peripheral Pulses: within normal limits - Abdominal General gastrointestinal: soft, non-tender, non-distended, normal bowel sounds - Integumentary Integumentary: Present: warm, dry, multiple tattoos - Psychiatric Psychiatric: appropriate mood/affect, cooperative - Neurologic Neurologic: CNII-XII intact, no focal deficits, moves all extremities - Allied Health Allied health notes reviewed: nursing, RT - Constitutional Vitals: Temp Pulse Resp BP Pulse Ox 98.4 F 53 L 16 149/78 99 12/23/20 07:00 12/23/20 07:30 12/23/20 07:30 12/23/20 07:30 12/23/20 07:35 General appearance: Present: no acute distress, well-nourished, obese HEART Score - HEART Score EKG: Non-specific Age: 45-65 Risk factors: 1-2 risk factors Troponin: Troponin T < 0.010 ng/mL (0.00-0.029) 12/20/20 13:10 Troponin: < normal limit - Critical Actions Critical Actions: 4-6 pts:12-16.6% risk of adverse cardiac event. Should be admitted Results - Labs CBC & Chem 7: 12/22/20 06:15 12/22/20 06:15 Labs: Laboratory Last Values WBC 8.3 K/mm3 (4.5-11.0) 12/22/20 06:15 RBC 4.93 M/mm3 (3.65-5.03) 12/22/20 06:15 Hgb 13.1 gm/dl (11.8-15.2) 12/22/20 06:15 Hct 38.7 % (35.5-45.6) 12/22/20 06:15 MCV 79 fl (84-94) L 12/22/20 06:15 MCH 27 pg (28-32) L 12/22/20 06:15 MCHC 34 % (32-34) 12/22/20 06:15 RDW 15.8 % (13.2-15.2) H 12/22/20 06:15 Plt Count 243 K/mm3 (140-440) 12/22/20 06:15 Lymph % (Auto) 19.9 % (13.4-35.0) 12/20/20 02:19 [place] % (Auto) 13.0 % (0.0-7.3) H 12/20/20 02:19 Eos % (Auto) 1.2 % (0.0-4.3) 12/20/20 02:19 Baso % (Auto) 0.3 % (0.0-1.8) 12/20/20 02:19 Lymph # (Auto) 1.6 K/mm3 (1.2-5.4) 12/20/20 02:19 [place] # (Auto) 1.0 K/mm3 (0.0-0.8) H 12/20/20 02:19 Eos # (Auto) 0.1 K/mm3 (0.0-0.4) 12/20/20 02:19 Baso # (Auto) 0.0 K/mm3 (0.0-0.1) 12/20/20 02:19 Seg Neutrophils % 65.6 % (40.0-70.0) 12/20/20 02:19 Seg Neutrophils # 5.1 K/mm3 (1.8-7.7) 12/20/20 02:19 PT 18.5 Sec. (12.2-14.9) H 12/22/20 06:15 INR 1.55 (0.87-1.13) H 12/22/20 06:15 APTT 38.5 Sec. (24.2-36.6) H 12/22/20 06:15 Sodium 138 mmol/L (137-145) 12/22/20 06:15 Potassium 3.6 mmol/L (3.6-5.0) 12/22/20 06:15 Chloride 103.6 mmol/L (98-107) 12/22/20 06:15 Carbon Dioxide 22 mmol/L (22-30) 12/22/20 06:15 Anion Gap 16 mmol/L 12/22/20 06:15 BUN 12 mg/dL (9-20) 12/22/20 06:15 Creatinine 1.1 mg/dL (0.8-1.3) 12/22/20 06:15 Estimated GFR > 60 ml/min 12/22/20 06:15 BUN/Creatinine Ratio 11 % 12/22/20 06:15 Glucose 111 mg/dL (75-100) H 12/22/20 06:15 POC Glucose 112 mg/dL (70-105) H 12/23/20 05:22 Hemoglobin A1c 5.1 % (4-6) 12/20/20 02:19 Calcium 8.6 mg/dL (8.4-10.2) 12/22/20 06:15 Magnesium 2.30 mg/dL (1.7-2.3) 12/19/20 13:34 Total Bilirubin 0.70 mg/dL (0.1-1.2) 12/22/20 06:15 Direct Bilirubin 0.2 mg/dL (0-0.2) 12/22/20 06:15 Indirect Bilirubin 0.5 mg/dL 12/22/20 06:15 AST 33 units/L (5-40) 12/22/20 06:15 ALT 37 units/L (7-56) 12/22/20 06:15 Alkaline Phosphatase 77 units/L (35-129) 12/22/20 06:15 Total Creatine Kinase 503 units/L (55-170) H 12/19/20 13:34 CK-MB (CK-2) 7.8 ng/mL (0.0-4.0) H 12/19/20 13:34 CK-MB (CK-2) Rel Index 1.5 (0-4) 12/19/20 13:34 Troponin T < 0.010 ng/mL (0.00-0.029) 12/20/20 13:10 NT-Pro-B Natriuret Pep 45.95 pg/mL (0-450) 12/19/20 13:34 Total Protein 7.4 g/dL (6.3-8.2) 12/22/20 06:15 Albumin 3.5 g/dL (3.9-5) L 12/22/20 06:15 Albumin/Globulin Ratio 0.9 % 12/22/20 06:15 TSH 1.320 mlU/mL (0.270-4.200) 12/19/20 13:34 Free T4 1.05 ng/dL (0.76-1.46) 12/19/20 13:34 Urine Color Yellow (Yellow) 12/19/20 18:50 Urine Turbidity Clear (Clear) 12/19/20 18:50 Urine pH 5.0 (5.0-7.0) 12/19/20 18:50 Ur Specific [place] 1.012 (1.003-1.030) 12/19/20 18:50 Urine Protein 100 mg/dl mg/dL (Negative) 12/19/20 18:50 Urine Glucose (UA) Neg mg/dL (Negative) 12/19/20 18:50 Urine Ketones Neg mg/dL (Negative) 12/19/20 18:50 Urine Blood Sm (Negative) 12/19/20 18:50 Urine Nitrite Neg (Negative) 12/19/20 18:50 Urine Bilirubin Neg (Negative) 12/19/20 18:50 Urine Urobilinogen < 2.0 mg/dL (<2.0) 12/19/20 18:50 Ur Leukocyte Esterase Neg (Negative) 12/19/20 18:50 Urine WBC (Auto) 1.0 /HPF (0.0-6.0) 12/19/20 18:50 Urine RBC (Auto) 2.0 /HPF (0.0-6.0) 12/19/20 18:50 U Epithel Cells (Auto) < 1.0 /HPF (0-13.0) 12/19/20 18:50 Urine Mucus Few /HPF 12/19/20 18:50 Urine Opiates Screen Negative 12/19/20 18:50 Urine Methadone Screen Negative 12/19/20 18:50 Ur Barbiturates Screen Negative 12/19/20 18:50 Ur Phencyclidine Scrn Negative 12/19/20 18:50 Ur Amphetamines Screen Negative 12/19/20 18:50 U Benzodiazepines Scrn Negative 12/19/20 18:50 Urine Cocaine Screen Negative 12/19/20 18:50 U Marijuana (THC) Screen Negative 12/19/20 18:50 Drugs of Abuse Note Disclamer 12/19/20 18:50 Coronavirus (PCR) Negative (Negative) 12/20/20 Unknown Blood Type O POSITIVE 12/22/20 06:15 Antibody Screen Negative 12/22/20 06:15 Lim/IV: Voiding Method Urinal Active Medications - Current Medications Current Medications: Generic Name Dose Route Start Last Admin Trade Name Freq PRN Reason Stop Dose Admin Acetaminophen 650 mg 12/19/20 23:37 12/22/20 22:43 Acetaminophen 325 Mg Tab PO 650 mg Q4H PRN Administration Fever >100.5/YAO Aspirin 325 mg 12/19/20 16:00 12/22/20 15:41 Aspirin 325 Mg Tab PO Not Given QDAY [facility] Famotidine 20 mg 12/22/20 10:00 12/22/20 22:40 Famotidine 20 Mg Tab PO 20 mg BID [facility] Administration Heparin Sodium (Porcine) 5,000 unit 12/20/20 10:00 12/22/20 22:40 Heparin 5,000 Unit/1 Ml Vial SUB-Q 5,000 unit Q12HR [facility] Administration Hydralazine HCl 50 mg 12/19/20 23:45 12/23/20 05:53 Hydralazine 25 Mg Tab PO Not Given Q8HR [facility] Hydromorphone HCl 0.5 mg 12/19/20 23:37 12/20/20 14:54 Hydromorphone 1 Mg/1 Ml Inj IV 0.5 mg Q3H PRN Administration Pain , Severe (7-10) Metoclopramide HCl 10 mg 12/19/20 23:37 Metoclopramide 10 Mg/2 Ml Inj IV Q6H PRN Nausea And Vomiting Nifedipine 60 mg 12/19/20 22:00 12/22/20 22:41 Nifedipine Xl 60 Mg Tab PO 60 mg Q12HR [facility] Administration Ondansetron HCl 4 mg 12/19/20 23:37 Ondansetron 4 Mg/2 Ml Inj IV Q8H PRN Nausea And Vomiting Oxycodone/Acetaminophen 1 tab 12/19/20 23:37 Oxycodone /Acetaminophen 5-325mg Tab PO Q6H PRN Pain, Moderate (4-6) Simethicone 80 mg 12/20/20 02:29 12/20/20 03:04 Simethicone 80 Mg Chew Tab PO 80 mg Q6H PRN Administration Gas pain Sodium Chloride 10 ml 12/20/20 10:00 12/22/20 22:42 Sodium Chloride 0.9% 10 Ml Flush Syringe IV 10 ml BID [facility] Administration Sodium Chloride 10 ml 12/19/20 23:37 Sodium Chloride 0.9% 10 Ml Flush Syringe IV PRN PRN LINE FLUSH Tramadol HCl 50 mg 12/22/20 11:33 Tramadol 50 Mg Tab PO Q4H PRN Pain, Mild (1-3) Valsartan 160 mg 12/19/20 23:45 12/22/20 22:41 Valsartan 160mg Tab PO 160 mg Q12HR [facility] Administration
--- NOTE | 2020-12-23 09:15 | Progress Note ---
Assessment and Plan 45 y/o obese male with complete heart block 12/23/20: PPM today. Should be able to transfer to tele floor post placement but will defer to cards. 12/22/20: Likely will return back to ICU post cath. Continue CV monitoring as well as hemodynamic monitoring. 12/21/20: I am not able to find an order that states the rate on the PM should have been changed from 40 to 60. Will ask cardiology about this. So far patient is stable. Will continue ICU monitoring for now. 1. Pacemaker placement per cards 2. Needs outpatient PSG 3. Weight loss 4. Continue ICU monitoring CCT 31 minutes. Subjective Date of service: 12/23/20 Interval history: LHC on yesterday revealed no ischemia. EP planning for PM placement today. No acute events noted overnight. Objective - Constitutional Vitals: Vital Signs - 12hr 12/22/20 12/22/20 12/22/20 21:31 22:00 22:01 Temperature Pulse Rate 63 64 Pulse Rate [ 60 From Monitor] Respiratory 12 22 22 Rate Blood Pressure 134/68 138/95 O2 Sat by Pulse 86 95 86 Oximetry 12/22/20 12/22/20 12/22/20 22:31 22:41 23:01 Temperature Pulse Rate 64 60 61 Pulse Rate [ From Monitor] Respiratory 22 26 H Rate Blood Pressure 203/79 160/69 152/78 O2 Sat by Pulse 89 97 Oximetry 12/22/20 12/22/20 12/22/20 23:03 23:26 23:31 Temperature 99.1 F Pulse Rate 64 60 Pulse Rate [ From Monitor] Respiratory 12 24 Rate Blood Pressure 152/78 152/78 O2 Sat by Pulse 98 98 Oximetry 12/23/20 12/23/20 12/23/20 00:00 00:31 01:01 Temperature Pulse Rate 64 55 L 56 L Pulse Rate [ From Monitor] Respiratory 15 19 17 Rate Blood Pressure 176/91 167/56 183/87 O2 Sat by Pulse 95 90 91 Oximetry 12/23/20 12/23/20 12/23/20 01:31 02:00 02:01 Temperature Pulse Rate 57 L 54 L Pulse Rate [ 55 L From Monitor] Respiratory 18 15 13 Rate Blood Pressure 189/76 189/76 O2 Sat by Pulse 98 98 99 Oximetry 12/23/20 12/23/20 12/23/20 02:31 03:01 03:10 Temperature 99.4 F Pulse Rate 56 L 49 L Pulse Rate [ From Monitor] Respiratory 21 16 Rate Blood Pressure 127/56 120/60 O2 Sat by Pulse 97 95 Oximetry 12/23/20 12/23/20 12/23/20 03:31 04:00 04:01 Temperature Pulse Rate 61 55 L 55 L Pulse Rate [ From Monitor] Respiratory 19 15 Rate Blood Pressure 132/60 139/49 O2 Sat by Pulse 98 98 Oximetry 12/23/20 12/23/20 12/23/20 04:30 05:01 05:31 Temperature Pulse Rate 54 L 52 L 54 L Pulse Rate [ From Monitor] Respiratory 20 18 22 Rate Blood Pressure 132/61 114/43 123/60 O2 Sat by Pulse 99 98 98 Oximetry 12/23/20 12/23/20 12/23/20 05:53 06:01 06:31 Temperature Pulse Rate 58 L 57 L 60 Pulse Rate [ From Monitor] Respiratory 19 16 Rate Blood Pressure 123/60 123/60 138/57 O2 Sat by Pulse 98 99 Oximetry 12/23/20 12/23/20 12/23/20 07:00 07:01 07:30 Temperature 98.4 F Pulse Rate 53 L 53 L Pulse Rate [ From Monitor] Respiratory 15 16 Rate Blood Pressure 135/62 149/78 O2 Sat by Pulse 100 98 Oximetry 12/23/20 12/23/20 12/23/20 07:35 08:01 08:31 Temperature Pulse Rate 63 46 L Pulse Rate [ From Monitor] Respiratory 13 22 Rate Blood Pressure 162/54 143/71 O2 Sat by Pulse 99 98 98 Oximetry 12/23/20 09:01 Temperature Pulse Rate 59 L Pulse Rate [ From Monitor] Respiratory 17 Rate Blood Pressure 152/80 O2 Sat by Pulse 100 Oximetry - Labs CBC & Chem 7: 12/22/20 06:15 12/22/20 06:15 Labs: Abnormal lab results 12/22/20 12/22/20 12/22/20 Range/Units 03:32 06:15 17:31 ABG Glucose (65-95) mg/dL POC Glucose 119 H 141 H (70-105) mg/dL Albumin 3.5 L (3.9-5) g/dL Arterial Blood Glucose (65-95) mg/dL 05/24/21 05/25/21 05/25/21 Range/Units 23:17 05:22 08:36 ABG Glucose 117 H (65-95) mg/dL POC Glucose 121 H 112 H (70-105) mg/dL Albumin (3.9-5) g/dL Arterial Blood Glucose 117 H (65-95) mg/dL Medications & Allergies - Medications Allergies/Adverse Reactions: Allergies No Known Allergies Allergy (Verified 12/19/20 14:00) Home Medications: Home Medications Medication Instructions Recorded Confirmed Last Taken Type No Known Home Medications [No 12/19/20 12/19/20 Unknown History Reported Home Medications] Active Medications: Generic Name Dose Route Start Last Admin Trade Name Freq PRN Reason Stop Dose Admin Acetaminophen 650 mg 12/19/20 23:37 12/22/20 22:43 Acetaminophen 325 Mg Tab PO 650 mg Q4H PRN Administration Fever >100.5/YAO Aspirin 325 mg 12/19/20 16:00 12/22/20 15:41 Aspirin 325 Mg Tab PO Not Given QDAY ISRAEL Famotidine 20 mg 12/22/20 10:00 12/22/20 22:40 Famotidine 20 Mg Tab PO 20 mg BID IS[place] Administration Heparin Sodium (Porcine) 5,000 unit 12/20/20 10:00 12/22/20 22:40 Heparin 5,000 Unit/1 Ml Vial SUB-Q 5,000 unit Q12HR IS[place] Administration Hydralazine HCl 50 mg 12/19/20 23:45 12/23/20 05:53 Hydralazine 25 Mg Tab PO Not Given Q8HR [place] Hydromorphone HCl 0.5 mg 12/19/20 23:37 12/20/20 14:54 Hydromorphone 1 Mg/1 Ml Inj IV 0.5 mg Q3H PRN Administration Pain , Severe (7-10) Metoclopramide HCl 10 mg 12/19/20 23:37 Metoclopramide 10 Mg/2 Ml Inj IV Q6H PRN Nausea And Vomiting Nifedipine 60 mg 12/19/20 22:00 12/22/20 22:41 Nifedipine Xl 60 Mg Tab PO 60 mg Q12HR [place] Administration Ondansetron HCl 4 mg 12/19/20 23:37 Ondansetron 4 Mg/2 Ml Inj IV Q8H PRN Nausea And Vomiting Oxycodone/Acetaminophen 1 tab 12/19/20 23:37 Oxycodone /Acetaminophen 5-325mg Tab PO Q6H PRN Pain, Moderate (4-6) Simethicone 80 mg 12/20/20 02:29 12/20/20 03:04 Simethicone 80 Mg Chew Tab PO 80 mg Q6H PRN Administration Gas pain Sodium Chloride 10 ml 12/20/20 10:00 12/22/20 22:42 Sodium Chloride 0.9% 10 Ml Flush Syringe IV 10 ml BID [place] Administration Sodium Chloride 10 ml 12/19/20 23:37 Sodium Chloride 0.9% 10 Ml Flush Syringe IV PRN PRN LINE FLUSH Tramadol HCl 50 mg 12/22/20 11:33 Tramadol 50 Mg Tab PO Q4H PRN Pain, Mild (1-3) Valsartan 160 mg 12/19/20 23:45 12/22/20 22:41 Valsartan 160mg Tab PO 160 mg Q12HR [place] Administration HEART Score - HEART Score EKG: Non-specific Age: 45-65 Risk factors: 1-2 risk factors Troponin: Troponin T < 0.010 ng/mL (0.00-0.029) 12/20/20 13:10 Troponin: < normal limit - Critical Actions Critical Actions: 4-6 pts:12-16.6% risk of adverse cardiac event. Should be admitted
[2020-12-23] MEDS: VALSARTAN 160MG TAB PO SCH ×2 (09:37→21:50)
[2020-12-23] MEDS: HEPARIN 5,000 UNIT/1 ML VIAL SUB-Q SCH ×2 (09:37→21:51)
[2020-12-23] MEDS: ASPIRIN 325 MG TAB PO SCH (09:37)
[2020-12-23] MEDS: NIFEdipine XL 60 MG TAB PO SCH ×2 (09:38→21:49)
[2020-12-23] MEDS: FAMOTIDINE 20 MG TAB PO SCH ×2 (09:38→21:51)
[2020-12-23 10:01] LABS: BUN/Creatinine Ratio 13; Blood Urea Nitrogen 14 mg/dL (9-20); Calcium 8.8 mg/dL (8.4-10.2); Hemolysis Index 14
[2020-12-23 10:02] LABS: INR 1.67 (0.87-1.13)
--- NOTE | 2020-12-23 10:36 | Electrocardiograph Report ---
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
[2020-12-23] MEDS: HYDROmorphone 1 MG/1 ML INJ IV PRN (13:38)
--- NOTE | 2020-12-23 14:44 | Anesthesia Consultation ---
Anesthesia Consult and Med Hx Date of service: 12/23/20 - Airway Anesthetic Teeth Evaluation: Good (some missing teeth) ROM Head & Neck: Adequate Mental/Hyoid Distance: Adequate Mallampati Class: Class III Intubation Access Assessment: Possibly Difficult - Pre-Operative Health Status ASA Pre-Surgery Classification: ASA3 Proposed Anesthetic Plan: MAC - Pulmonary Hx Smoking: Yes (socially, 1-2 cig/week) Hx Sleep Apnea: Yes (undiagnosed, snoring) - Cardiovascular System Hx Hypertension: Yes Hx Cardia Arrhythmia: Yes Hx Pacemaker: Yes (temporary venous pacemake in situ) - Other Systems Hx Cancer: No Hx Obesity: Yes (morbid obesity, BMI 43.9)
--- NOTE | 2020-12-23 14:45 | Anesthesia Day of Surgery ---
Anesthesia Day of Surgery - Day of Surgery Patient Examined: Yes Patient H&P Reviewed: Yes Patient is NPO: Yes
[2020-12-23] MEDS ORDERED: SODIUM CHLORIDE IRRI 1000 ML 1,000 ML, .VANCOMYCIN VIAL 1,000 MG IR ONE (15:13)
[2020-12-23] MEDS ORDERED: HYDROmorphone 1 MG/1 ML INJ ONE (15:13)
[2020-12-23] MEDS ORDERED: propofoL 200 MG/20 ML VIAL IV ONE ×2 (15:13)
[2020-12-23] MEDS ORDERED: KETAMINE/STERILE WATER 50 MG/ML SYRINGE ONE (15:13)
[2020-12-23] MEDS ORDERED: SODIUM CHLORIDE IRRI 500 ML 500 ML IR ONE (15:50)
[2020-12-23] MEDS ORDERED: LIDOCAINE (1%) 10 MG/1 ML VIAL 20 ML MDV ONE (15:50)
[2020-12-23] MEDS ORDERED: BUPIVACAINE/PF (0.5%) 5 MG/1 ML 30 ML VIAL INFILTRATI ONE (15:51)
[2020-12-23] MEDS ORDERED: ceFAZolin/Water 2 GM/20 ML 2 GM/20 ML SYRINGE IV ONE (15:51)
[2020-12-23] MEDS ORDERED: SODIUM CHLORIDE 0.45% 1000 ML 1,000 ML IV SCH (16:00)
--- NOTE | 2020-12-23 16:13 | Progress Note ---
Assessment and Plan #CHB -Will proceed with dual chamber PM implant and remove TVP post procedure. Subjective Date of service: 12/23/20 Interval history: Patient continues to have SR with CHB. No significant CAD on heart cath. He has normal LV function per echo. Recommend dual chamber PM implant. Risks/benefits personally reviewed with patient. All questions answered. Consent in chart. Reviewed post procedure activity restrictions and site care with patient. Objective Vital Signs Temp Pulse Pulse Resp BP Pulse Ox 12/23/20 14:31 79 17 131/65 99 12/23/20 14:01 60 16 131/65 96 12/23/20 13:31 67 14 145/58 99 12/23/20 13:01 138/59 72 L 12/23/20 12:31 72 18 138/59 99 12/23/20 12:01 55 L 16 138/59 96 12/23/20 12:00 58 L 67 100 12/23/20 11:49 98.5 F 12/23/20 11:31 62 12 132/56 99 12/23/20 11:01 52 L 15 132/56 94 12/23/20 10:31 51 L 13 99 12/23/20 10:01 57 L 21 127/59 95 12/23/20 09:31 52 L 22 143/71 98 12/23/20 09:01 59 L 17 152/80 100 12/23/20 08:31 46 L 22 143/71 98 12/23/20 08:01 63 13 162/54 98 12/23/20 08:00 62 98 12/23/20 07:35 99 12/23/20 07:30 53 L 16 149/78 98 12/23/20 07:01 53 L 15 135/62 100 12/23/20 07:00 98.4 F 12/23/20 06:31 60 16 138/57 99 12/23/20 06:01 57 L 19 123/60 98 12/23/20 05:53 58 L 123/60 12/23/20 05:31 54 L 22 123/60 98 12/23/20 05:01 52 L 18 114/43 98 12/23/20 04:30 54 L 20 132/61 99 12/23/20 04:01 55 L 15 139/49 98 12/23/20 04:00 55 L 12/23/20 03:31 61 19 132/60 98 12/23/20 03:10 99.4 F 12/23/20 03:01 49 L 16 120/60 95 12/23/20 02:31 56 L 21 127/56 97 12/23/20 02:01 54 L 13 189/76 99 12/23/20 02:00 55 L 15 98 12/23/20 01:31 57 L 18 189/76 98 12/23/20 01:01 56 L 17 183/87 91 12/23/20 00:31 55 L 19 167/56 90 12/23/20 00:00 64 15 176/91 95 12/22/20 23:31 60 24 152/78 98 12/22/20 23:26 99.1 F 12/22/20 23:03 64 12 152/78 98 12/22/20 23:01 61 26 H 152/78 97 12/22/20 22:41 60 160/69 12/22/20 22:31 64 22 203/79 89 12/22/20 22:01 64 22 138/95 86 12/22/20 22:00 60 22 95 12/22/20 21:31 63 12 134/68 86 12/22/20 21:01 64 21 104/61 92 12/22/20 20:31 70 13 138/87 95 12/22/20 20:01 48 L 18 144/65 86 12/22/20 20:00 60 12/22/20 19:31 60 22 154/68 87 12/22/20 19:26 99.6 F 12/22/20 19:00 60 18 152/69 87 12/22/20 18:31 61 13 159/42 93 12/22/20 18:01 64 13 154/58 99 12/22/20 18:00 59 L 23 96 12/22/20 17:31 62 16 154/58 93 12/22/20 17:01 59 L 23 152/53 92 12/22/20 17:00 59 L 23 152/53 92 12/22/20 16:31 62 14 144/62 99 - Physical Examination General: Appears Well, No Apparent Distress HEENT: Positive: PERRL Neck: Positive: neck supple Neuro: Positive: Grossly Intact Abdomen: Positive: Soft, Active Bowel Sounds Skin: Positive: Clear Extremities: Present: normal - Labs and Meds Coagulation 12/23/20 Range/Units 09:30 PT 19.6 H (12.2-14.9) Sec. INR 1.67 H (0.87-1.13) Comprehensive Metabolic Panel 12/23/20 Range/Units 09:30 Sodium 136 L (137-145) mmol/L Potassium 3.7 (3.6-5.0) mmol/L Chloride 103.5 (98-107) mmol/L Carbon Dioxide 22 (22-30) mmol/L BUN 14 (9-20) mg/dL Creatinine 1.1 (0.8-1.3) mg/dL Glucose 103 H (75-100) mg/dL Calcium 8.8 (8.4-10.2) mg/dL - Imaging and Cardiology EKG: report reviewed (Complete heart block)
[2020-12-23] MEDS ORDERED: SODIUM CHLORIDE 0.9% 500 ML 500 ML ONE (16:23)
[2020-12-23] MEDS ORDERED: MIDAZOLAM 2 MG/2 ML INJ ONE (16:23)
--- NOTE | 2020-12-23 18:11 | Post Operative Note ---
Date of procedure: 12/23/20 Pre-op diagnosis: Complete heart block Post-op diagnosis: same (s/p dual chamber PM) Findings: CXR post op. Device interrogation tomorrow. May discharge tomorrow from EP stand point if no issues. Prescription for pain med placed in chart. Follow up with Dr. Beauchamp in 1 week for wound check at [place] [facility]. Anesthesia: MAC Surgeon: DAVDI BEAUCHAMP Estimated blood loss: minimal Pathology: none Condition: stable Disposition: ICU
--- NOTE | 2020-12-23 18:41 | XRay Report ---
CHEST 1 VIEW 12/23/2020 5:31 PM INDICATION / CLINICAL INFORMATION: Pacemaker Postop. COMPARISON: None available. FINDINGS: SUPPORT DEVICES: None. HEART / MEDIASTINUM: No significant abnormality. LUNGS / PLEURA: No significant pulmonary or pleural abnormality. No pneumothorax. ADDITIONAL FINDINGS: No significant additional findings. IMPRESSION: 1. No acute findings. Signer Name: Andrea Concepcion MD Signed: 12/23/2020 6:37 PM Workstation Name: [facility]
--- NOTE | 2020-12-23 18:49 | Post Anesthesia Evaluation ---
- Post Anesthesia Evaluation Patient Participated: Yes Airway Patent: Yes Stable Respiratory Function: Yes Nausea/Vomiting: No Temp > 96.8F: Yes Pain Manageable: Yes Adequeate Hydration: Yes Anesthesia Complications: No
[2020-12-23] MEDS: ACETAMINOPHEN 325 MG TAB PO PRN (21:53)
--- NOTE | 2020-12-24 07:09 | Procedure Note ---
Procedure: INSERTION OF DUAL CHAMBER PACEMAKER PATIENT NAME: Farhad Allen : 1975 MR#: [id number] DATE OF PROCEDURE: 12/23/2020 HOSPITAL: RN FLOAT: Erlin Beauchamp M.D. Pre Operative Diagnosis: Complete Heart Block Post Operative Diagnosis: Complete Heart Block s/p dual chamber pacemaker COMPLICATIONS: None PROCEDURE: The risks, benefits, and alternatives were explained to the patient. The patient was prepped and draped in standard fashion for implantable pacemaker insertion following sterile preparation of the pectoral region. Local anesthesia was obtained by infiltration with 1% Lidocaine. A 4 cm incision was made in the infra-clavicular region.. At that point further dissection was carried out by blunt dissection and electro-cautery. A pocket was created. The vein was cannulated using technique. Using a peel away introducer, the ventricular lead was advanced to the RV and positioned to the apex . The helix was extended and endocardial measurements were made. Using a second peel away introducer in the vein, the atrial lead was advanced to the level of the right atrial appendage . The helix was extended and endocardial measurements were made. After the attainment of acceptable endocardial values, both leads were sutured over their suture sleeves to the underlying tissue. Inspection was performed to rule out any bleeding. The pocket was irrigated with antibiotic solution. The pulse generator was then connected to the leads and the setscrews tightened appropriately. The pulse generator was placed in the newly formed pocket and connections were verified. The wound was closed in layers using Vicryl sutures. A Dermabond dressing was placed over the wound. The patient was returned to the room in stable condition without complication or sequelae. FINDINGS: The following endocardial parameters were obtained: Router Operator Radial Model# Serial # Sensing Threshold Impedance RA Medtronic 5076 [id number] 3.1mV 0.5V @ 0.4ms 779ohms RV Medtronic 5076 [id number] 6.3mV 0.5V @ 0.4ms 893ohms PROGRAMMING: The implanted Medtronic generator (Model # Amy S , Serial #[id number]) was programmed: Mode Lower Rate Maximum Rate AV/PV delay DDD 60 bpm 130 bpm 180 msec/ 160 msec Pulse Amplitude Pulse Width Sensitivity RA 3.5Volts 0.4 msec Automatic RV 3.5Volts 0.4 msec Automatic CONCLUSIONS: Successful Dual Chamber Pacemaker Implant Estimated Blood Loss: <10 cc PLAN: Routine post op orders, CXR, F/u as OP, Enroll in remote monitoring
--- NOTE | 2020-12-24 08:07 | Discharge Summary ---
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 ECG in the EMS and ED showed AV block with heart rate in the 20s and bradycardia for which the patient was emergently taken to [facility] for temporary venous pacemaker insertion. Patient was admitted to the hospital service with consults to [facility] and cardiology. 12/20: COVID-19 PCR pending. Patient complains of of gas pains for which he is being treated with simethicone. Patient does not complain of any chest pain, respiratory distress, nausea or vomiting. Blood pressure is better controlled. 12/21: This morning patient seems not be completely paced like yesterday, RN overnight apparently decreased the rate of the pacemaker due to an order for a decreased rate but none is found. Patient states his abd discomfort has passed and does not complain of CP/diaphoresis/ n/v or dizziness. EP deneen pending, will obtain coags in the AM 12/22: Patient currently in the [facility] for cardiac evaluation. Anticipate pacemaker placement in a.m. Per nursing staff patient reports that he does not take any medications outpatient. I did note that he has an INR of 1.5 will discuss with him again this could be secondary to intrinsic changes. We will look at LFTs. Continue current management Set up to follow with pulmonary outpatient for sleep apnea. And also primary care physician set up. 12/23: Continue supportive care, no new issues reported but apprehensive still about Possible LUCIO, as he hears his snoring on sudden waking up. Going for PPM today. Will obtain an ABG to assess CO2 status 12/24: Patient doing well following insertion of double chamber PPM. No new complaints. No dizziness at this time. He also had a stress test which was unremarkable per documentation. He will be discharged to follow-up with cardiology/EP outpatient in 1 week. Extensive counseling was given to the patient about obesity and lifestyle changes preventive health counseling done for 20 minutes. Discharge medications discussed with the patient in detail he verbalized understanding he also understands that he is to have a sleep study outpatient to rule out pulmonary embolism. COVID-19 PUI Complete heart block Hypertensive emergency Obesity- Morbid Presyncope (likely related to complete heart block) Secondary coagulopathy with an INR of 1.5 Disposition: DC-01 TO HOME OR SELFCARE Final Discharge Diagnosis (Prints w/discharge instructions): Complete heart block Time spent for discharge: 35 minutes Core Measure Documentation - Palliative Care Palliative Care/ Comfort Measures: Not Applicable - Core Measures Any of the following diagnoses?: none Exam - Physical Exam Narrative exam: -General appearance: Present: no acute distress, well-nourished, obese - EENT Eyes: Present: PERRL, EOM intact ENT: hearing intact, clear oral mucosa, dentition normal - Neck Neck: Present: supple, normal ROM - Respiratory Respiratory effort: normal Respiratory: bilateral: CTA - Cardiovascular Rhythm: regular Heart Sounds: Present: S1 & S2. Absent: systolic murmur, diastolic murmur - Extremities Extremities: no ischemia, pulses intact, pulses symmetrical, No edema, normal temperature, normal color, Full ROM Peripheral Pulses: within normal limits - Abdominal General gastrointestinal: soft, non-tender, non-distended, normal bowel sounds - Integumentary Integumentary: Present: PPM chamber intact no drainage noted. Warm, dry, multiple tattoos - Psychiatric Psychiatric: appropriate mood/affect, cooperative - Neurologic Neurologic: CNII-XII intact, no focal deficits, moves all extremities - Allied Health Allied health notes reviewed: nursing, RT - Constitutional Vitals: Temp Pulse Resp BP Pulse Ox 100.6 F H 84 15 123/57 96 12/24/20 07:24 12/24/20 06:31 12/24/20 06:31 12/24/20 06:31 12/24/20 06:31 Plan Activity: advance as tolerated, fall precautions Diet: low fat Special Instructions: record daily weights, record daily BP diary Follow up with: ALOK VILLARREAL MD [Primary Care Provider] - 7 Days DAVID AMAYA MD [Staff Physician] - 7 Days RANDY HALLMAN MD [Staff Physician] - 7 Days Prescriptions: hydrALAZINE [Apresoline TAB] 50 mg PO Q8HR #90 tablet Aspirin 325 mg PO QDAY #30 tablet Valsartan [Diovan] 160 mg PO Q12HR #60 tablet Famotidine [Pepcid] 20 mg PO DAILY #30 tablet oxyCODONE /ACETAMINOPHEN [Percocet 5/325] 1 tab PO Q6HR PRN #10 tablet PRN Reason: Pain NIFEdipine XL [Procardia Xl] 60 mg PO Q12HR #60 tablet
--- NOTE | 2020-12-24 08:28 | Progress Note ---
Assessment and Plan 45 y/o obese male with complete heart block 12/24/20: Will arrange follow up with [facility]ice for LUCIO and PSG. Card given with office info incase he does not receive an appointment by end of week. 12/23/20: PPM today. Should be able to transfer to tele floor post placement but will defer to cards. 12/22/20: Likely will return back to ICU post cath. Continue CV monitoring as well as hemodynamic monitoring. 12/21/20: I am not able to find an order that states the rate on the PM should have been changed from 40 to 60. Will ask cardiology about this. So far patient is stable. Will continue ICU monitoring for now. 1. Pacemaker placement per cards 2. Needs outpatient PSG 3. Weight loss 4. Continue ICU monitoring CCT 31 minutes. Subjective Date of service: 12/24/20 Interval history: Patient being discharged from unit today. Objective - Constitutional Vitals: Vital Signs - 12hr 12/23/20 12/23/20 12/23/20 20:30 21:00 21:31 Temperature Pulse Rate 97 H 102 H Pulse Rate [ From Monitor] Respiratory 21 22 Rate Blood Pressure 141/71 128/79 128/79 O2 Sat by Pulse 92 95 97 Oximetry 12/23/20 12/23/20 12/23/20 21:49 21:50 22:01 Temperature Pulse Rate 105 H 103 H 101 H Pulse Rate [ From Monitor] Respiratory 21 Rate Blood Pressure 128/79 128/79 130/81 O2 Sat by Pulse 98 Oximetry 12/23/20 12/23/20 12/23/20 22:31 23:00 23:05 Temperature Pulse Rate 101 H 99 H 97 H Pulse Rate [ From Monitor] Respiratory 15 22 23 Rate Blood Pressure 130/81 127/80 127/80 O2 Sat by Pulse 98 94 95 Oximetry 12/23/20 12/23/20 12/24/20 23:31 23:41 00:00 Temperature 98.9 F Pulse Rate 79 Pulse Rate [ 97 H From Monitor] Respiratory 24 Rate Blood Pressure 127/80 O2 Sat by Pulse 98 99 Oximetry 12/24/20 12/24/20 12/24/20 00:01 00:31 01:01 Temperature Pulse Rate 83 66 85 Pulse Rate [ From Monitor] Respiratory 24 15 22 Rate Blood Pressure 112/53 112/53 107/54 O2 Sat by Pulse 97 98 97 Oximetry 12/24/20 12/24/20 12/24/20 01:31 02:01 02:31 Temperature Pulse Rate 78 73 67 Pulse Rate [ From Monitor] Respiratory 22 25 H 18 Rate Blood Pressure 107/54 102/55 107/54 O2 Sat by Pulse 97 97 98 Oximetry 12/24/20 12/24/20 12/24/20 03:01 03:31 03:57 Temperature 98.8 F Pulse Rate Pulse Rate [ From Monitor] Respiratory Rate Blood Pressure 108/57 108/57 O2 Sat by Pulse 98 94 Oximetry 12/24/20 12/24/20 12/24/20 04:00 04:31 05:00 Temperature Pulse Rate 62 57 L Pulse Rate [ 97 H From Monitor] Respiratory 16 15 Rate Blood Pressure 117/59 108/57 99/58 O2 Sat by Pulse 98 99 93 Oximetry 12/24/20 12/24/20 12/24/20 05:31 06:01 06:31 Temperature Pulse Rate 71 73 84 Pulse Rate [ From Monitor] Respiratory 12 13 15 Rate Blood Pressure 117/59 123/57 123/57 O2 Sat by Pulse 96 97 96 Oximetry 12/24/20 07:24 Temperature 100.6 F H Pulse Rate Pulse Rate [ From Monitor] Respiratory Rate Blood Pressure O2 Sat by Pulse Oximetry - Labs CBC & Chem 7: 12/22/20 06:15 12/23/20 09:30 Labs: Abnormal lab results 12/23/20 12/23/20 12/23/20 Range/Units 05:22 08:36 09:30 PT 19.6 H (12.2-14.9) Sec. INR 1.67 H (0.87-1.13) ABG Glucose 117 H (65-95) mg/dL Sodium (137-145) mmol/L Glucose (75-100) mg/dL POC Glucose 112 H (70-105) mg/dL Arterial Blood Glucose 117 H (65-95) mg/dL 12/23/20 12/23/20 12/24/20 Range/Units 09:30 21:11 05:10 PT (12.2-14.9) Sec. INR (0.87-1.13) ABG Glucose (65-95) mg/dL Sodium 136 L (137-145) mmol/L Glucose 103 H (75-100) mg/dL POC Glucose 159 H 163 H (70-105) mg/dL Arterial Blood Glucose (65-95) mg/dL Medications & Allergies - Medications Allergies/Adverse Reactions: Allergies No Known Allergies Allergy (Verified 12/19/20 14:00) Home Medications: Home Medications Medication Instructions Recorded Confirmed Last Taken Type oxyCODONE /ACETAMINOPHEN [Percocet 1 tab PO Q6HR PRN #10 tablet 12/23/20 Unknown Rx 5/325] Aspirin 325 mg PO QDAY #30 tablet 12/24/20 Unknown Rx Famotidine [Pepcid] 20 mg PO DAILY #30 tablet 12/24/20 Unknown Rx NIFEdipine XL [Procardia Xl] 60 mg PO Q12HR #60 tablet 12/24/20 Unknown Rx Valsartan [Diovan] 160 mg PO Q12HR #60 tablet 12/24/20 Unknown Rx hydrALAZINE [Apresoline TAB] 50 mg PO Q8HR #90 tablet 12/24/20 Unknown Rx Active Medications: Generic Name Dose Route Start Last Admin Trade Name Freq PRN Reason Stop Dose Admin Acetaminophen 650 mg 12/19/20 23:37 12/23/20 21:53 Acetaminophen 325 Mg Tab PO 650 mg Q4H PRN Administration Fever >100.5/YAO Aspirin 325 mg 12/19/20 16:00 12/23/20 09:37 Aspirin 325 Mg Tab PO 325 mg QDAY [place] Administration Famotidine 20 mg 12/22/20 10:00 12/23/20 21:51 Famotidine 20 Mg Tab PO 20 mg BID [place] Administration Heparin Sodium (Porcine) 5,000 unit 12/20/20 10:00 12/23/20 21:51 Heparin 5,000 Unit/1 Ml Vial SUB-Q 5,000 unit Q12HR [place] Administration Hydralazine HCl 50 mg 12/19/20 23:45 12/23/20 21:49 Hydralazine 25 Mg Tab PO 50 mg Q8HR [place] Administration Hydromorphone HCl 0.5 mg 12/19/20 23:37 12/23/20 13:38 Hydromorphone 1 Mg/1 Ml Inj IV 0.5 mg Q3H PRN Administration Pain , Severe (7-10) Sodium Chloride 1,000 mls @ 42 mls/hr 12/23/20 16:00 12/23/20 15:35 Nacl 0.45% 1000 Ml IV 42 mls/hr DIRECT [place] Administration Metoclopramide HCl 10 mg 12/19/20 23:37 Metoclopramide 10 Mg/2 Ml Inj IV Q6H PRN Nausea And Vomiting Nifedipine 60 mg 12/19/20 22:00 12/23/20 21:49 Nifedipine Xl 60 Mg Tab PO 60 mg Q12HR [place] Administration Ondansetron HCl 4 mg 12/19/20 23:37 Ondansetron 4 Mg/2 Ml Inj IV Q8H PRN Nausea And Vomiting Oxycodone/Acetaminophen 1 tab 12/19/20 23:37 Oxycodone /Acetaminophen 5-325mg Tab PO Q6H PRN Pain, Moderate (4-6) Simethicone 80 mg 12/20/20 02:29 12/20/20 03:04 Simethicone 80 Mg Chew Tab PO 80 mg Q6H PRN Administration Gas pain Sodium Chloride 10 ml 12/20/20 10:00 12/23/20 21:52 Sodium Chloride 0.9% 10 Ml Flush Syringe IV 10 ml BID [place] Administration Sodium Chloride 10 ml 12/19/20 23:37 Sodium Chloride 0.9% 10 Ml Flush Syringe IV PRN PRN LINE FLUSH Tramadol HCl 50 mg 12/22/20 11:33 Tramadol 50 Mg Tab PO Q4H PRN Pain, Mild (1-3) Valsartan 160 mg 12/19/20 23:45 12/23/20 21:50 Valsartan 160mg Tab PO 160 mg Q12HR [place] Administration HEART Score - HEART Score EKG: Non-specific Age: 45-65 Risk factors: 1-2 risk factors Troponin: Troponin T < 0.010 ng/mL (0.00-0.029) 12/20/20 13:10 Troponin: < normal limit - Critical Actions Critical Actions: 4-6 pts:12-16.6% risk of adverse cardiac event. Should be admitted
[2020-12-24] MEDS: ASPIRIN 325 MG TAB PO SCH (09:34)
[2020-12-24] MEDS: FAMOTIDINE 20 MG TAB PO SCH ×2 (09:35→21:23)
[2020-12-24] MEDS: VALSARTAN 160MG TAB PO SCH ×2 (09:35→21:23)
[2020-12-24] MEDS: NIFEdipine XL 60 MG TAB PO SCH ×2 (09:35→21:23)
[2020-12-24] MEDS: HEPARIN 5,000 UNIT/1 ML VIAL SUB-Q SCH ×2 (09:36→21:22)
[2020-12-24] MEDS: hydrALAZINE 25 MG TAB PO SCH ×3 (09:40→21:23)
[2020-12-24 09:44] LABS: Basophils % (Auto) 0.3 % (0.0-1.8); Eosinophils # (Auto) 0.1 K/mm3 (0.0-0.4); Hematocrit 34.9 % (35.5-45.6); Hemoglobin 12.1 gm/dl (11.8-15.2); Lymphocytes % (Auto) 11.5 % (13.4-35.0); Mean Corpuscular HGB Conc 35 % (32-34); Mean Corpuscular Volume 77 fl (84-94); Monocytes % (Auto) 11.3 % (0.0-7.3); Platelet Count 223 K/mm3 (140-440); Red Blood Count 4.54 M/mm3 (3.65-5.03); Red Cell Distribution Width 15.4 % (13.2-15.2)
[2020-12-24 09:56] LABS: INR 1.56 (0.87-1.13)
[2020-12-24 10:02] LABS: BUN/Creatinine Ratio 11; Blood Urea Nitrogen 13 mg/dL (9-20); Calcium 8.6 mg/dL (8.4-10.2); Hemolysis Index 19
--- NOTE | 2020-12-24 11:17 | Progress Note ---
Assessment and Plan Complete heart block PM interrogation today revealed atrial lead dislodgement. s/p pacemaker implant 12/23/20 Hypertension [facility] this admission revealed no significant CAD. Echocardiogram showed normal LVEF and no significant valvular lesions. Continue medical management for hypertension. Spoke to Dr Beauchamp, science specialist. Patient is planned for lead revision tomorrow morning. Subjective Date of service: 12/24/20 Interval history: Patient is resting in bed and appears comfortable. Blood pressure is controlled. Device interrogation today revealed dislodgement of atrial lead. Objective Vital Signs Temp Pulse Pulse Resp BP Pulse Ox 12/24/20 09:35 73 130/75 12/24/20 07:24 100.6 F H 12/24/20 06:31 84 15 123/57 96 12/24/20 06:01 73 13 123/57 97 12/24/20 05:31 71 12 117/59 96 12/24/20 05:00 57 L 15 99/58 93 12/24/20 04:31 62 16 108/57 99 12/24/20 04:00 97 H 117/59 98 12/24/20 03:57 98.8 F 12/24/20 03:31 108/57 94 12/24/20 03:01 108/57 98 12/24/20 02:31 67 18 107/54 98 12/24/20 02:01 73 25 H 102/55 97 12/24/20 01:31 78 22 107/54 97 12/24/20 01:01 85 22 107/54 97 12/24/20 00:31 66 15 112/53 98 12/24/20 00:01 83 24 112/53 97 12/24/20 00:00 97 H 99 12/23/20 23:41 98.9 F 12/23/20 23:31 79 24 127/80 98 12/23/20 23:05 97 H 23 127/80 95 12/23/20 23:00 99 H 22 127/80 94 12/23/20 22:31 101 H 15 130/81 98 12/23/20 22:01 101 H 21 130/81 98 12/23/20 21:50 103 H 128/79 12/23/20 21:49 105 H 128/79 12/23/20 21:31 102 H 22 128/79 97 12/23/20 21:00 97 H 21 128/79 95 12/23/20 20:30 141/71 92 12/23/20 20:01 123/90 97 12/23/20 20:00 97 H 18 123/90 99 12/23/20 19:31 99 H 18 167/77 96 12/23/20 19:00 93 H 16 159/88 93 12/23/20 18:55 96 H 19 155/95 12/23/20 14:31 79 17 131/65 99 12/23/20 14:01 60 16 131/65 96 12/23/20 13:31 67 14 145/58 99 12/23/20 13:01 138/59 72 L 12/23/20 12:31 72 18 138/59 99 12/23/20 12:01 55 L 16 138/59 96 12/23/20 12:00 58 L 67 100 12/23/20 11:49 98.5 F 12/23/20 11:31 62 12 132/56 99 - Physical Examination General: No Apparent Distress HEENT: Positive: PERRL Neck: Positive: neck supple Cardiac: Positive: Reg Rate and Rhythm Lungs: Positive: Decreased Breath Sounds Neuro: Positive: Grossly Intact Extremities: Present: normal - Labs and Meds Coagulation 12/24/20 Range/Units 09:18 PT 18.6 H (12.2-14.9) Sec. INR 1.56 H (0.87-1.13) CBC 12/24/20 Range/Units 09:18 WBC 8.7 (4.5-11.0) K/mm3 RBC 4.54 (3.65-5.03) M/mm3 Hgb 12.1 (11.8-15.2) gm/dl Hct 34.9 L (35.5-45.6) % Plt Count 223 (140-440) K/mm3 Lymph # (Auto) 1.0 L (1.2-5.4) K/mm3 [place] # (Auto) 1.0 H (0.0-0.8) K/mm3 Eos # (Auto) 0.1 (0.0-0.4) K/mm3 Baso # (Auto) 0.0 (0.0-0.1) K/mm3 Comprehensive Metabolic Panel 12/24/20 Range/Units 09:18 Sodium 134 L (137-145) mmol/L Potassium 3.5 L (3.6-5.0) mmol/L Chloride 99.5 (98-107) mmol/L Carbon Dioxide 23 (22-30) mmol/L BUN 13 (9-20) mg/dL Creatinine 1.2 (0.8-1.3) mg/dL Glucose 146 H (75-100) mg/dL Calcium 8.6 (8.4-10.2) mg/dL - Imaging and Cardiology EKG: report reviewed (Complete heart block)
[2020-12-24] MEDS: HYDROmorphone 1 MG/1 ML INJ IV PRN (19:43)
[2020-12-25 04:37] LABS: INR 1.48 (0.87-1.13)
[2020-12-25 04:46] LABS: BUN/Creatinine Ratio 12; Blood Urea Nitrogen 12 mg/dL (9-20); Calcium 8.6 mg/dL (8.4-10.2); Hemolysis Index 0
[2020-12-25] MEDS: HYDROmorphone 1 MG/1 ML INJ IV PRN (05:21)
[2020-12-25] MEDS ORDERED: SODIUM CHLORIDE 0.9% 1000 ML 0 ML ONE (06:11)
[2020-12-25] MEDS: hydrALAZINE 25 MG TAB PO SCH ×2 (06:18→16:11)
[2020-12-25] MEDS ORDERED: SODIUM CHLORIDE IRRI 1000 ML 1,000 ML, .VANCOMYCIN VIAL 1,000 MG IR ONE (07:00)
[2020-12-25] MEDS ORDERED: POTASSIUM CHLORIDE ER 20 MEQ TAB PO NR (07:52)
--- NOTE | 2020-12-25 08:07 | Progress Note ---
Assessment and Plan 45 y/o obese male with complete heart block 12/25/20: No new recs for today. Hopeful EP can fix lead and patient go home soon. 12/24/20: Will arrange follow up with Denice for LUCIO and PSG. Card given with office info incase he does not receive an appointment by end of week. 12/23/20: PPM today. Should be able to transfer to tele floor post placement but will defer to cards. 12/22/20: Likely will return back to ICU post cath. Continue CV monitoring as well as hemodynamic monitoring. 12/21/20: I am not able to find an order that states the rate on the PM should have been changed from 40 to 60. Will ask cardiology about this. So far patient is stable. Will continue ICU monitoring for now. 1. Pacemaker placement per cards 2. Needs outpatient PSG 3. Weight loss 4. Continue ICU monitoring CCT 31 minutes. Subjective Date of service: 12/25/20 Interval history: Unable to discharge on yesterday secondary to lead displacement in the atria. Otherwise clinically stable. Objective - Constitutional Vitals: Vital Signs - 12hr 12/24/20 12/24/20 12/24/20 21:00 22:00 23:00 Temperature Pulse Rate 87 86 84 Pulse Rate [ From Monitor] Respiratory 12 25 H 18 Rate Blood Pressure 134/83 135/56 130/68 O2 Sat by Pulse 94 95 94 Oximetry 12/24/20 12/25/20 12/25/20 23:43 00:00 01:00 Temperature 98.8 F Pulse Rate 86 84 Pulse Rate [ 82 From Monitor] Respiratory 22 19 Rate Blood Pressure 130/68 132/72 120/85 O2 Sat by Pulse 92 98 93 Oximetry 12/25/20 12/25/20 12/25/20 02:00 03:00 04:00 Temperature Pulse Rate 77 82 81 Pulse Rate [ 80 From Monitor] Respiratory 19 19 18 Rate Blood Pressure 129/71 124/74 120/70 O2 Sat by Pulse 93 88 94 Oximetry 12/25/20 12/25/20 12/25/20 04:16 05:00 06:00 Temperature 98.1 F Pulse Rate 80 82 Pulse Rate [ From Monitor] Respiratory 15 14 Rate Blood Pressure 127/80 134/82 O2 Sat by Pulse 100 89 Oximetry 12/25/20 12/25/20 06:18 07:00 Temperature 98.5 F Pulse Rate 81 Pulse Rate [ From Monitor] Respiratory Rate Blood Pressure 134/82 O2 Sat by Pulse Oximetry General appearance: Present: no acute distress, well-nourished, obese - EENT Eyes: PERRL, EOM intact ENT: hearing intact, clear oral mucosa - Neck Neck: supple, normal ROM, other (large in circumference) - Respiratory Respiratory effort: normal Respiratory: bilateral: CTA - Cardiovascular Rhythm: regular Heart Sounds: Present: S1 & S2 Extremities: no ischemia, pulses intact - Labs CBC & Chem 7: 12/24/20 09:18 12/25/20 04:11 Labs: Abnormal lab results 12/24/20 12/24/20 12/24/20 Range/Units 08:20 09:18 09:18 Hct 34.9 L (35.5-45.6) % MCV 77 L (84-94) fl MCH 27 L (28-32) pg MCHC 35 H (32-34) % RDW 15.4 H (13.2-15.2) % Lymph % (Auto) 11.5 L (13.4-35.0) % [place] % (Auto) 11.3 H (0.0-7.3) % Lymph # (Auto) 1.0 L (1.2-5.4) K/mm3 [place] # (Auto) 1.0 H (0.0-0.8) K/mm3 Seg Neutrophils % 75.9 H (40.0-70.0) % PT 18.6 H (12.2-14.9) Sec. INR 1.56 H (0.87-1.13) Sodium (137-145) mmol/L Potassium (3.6-5.0) mmol/L Glucose (75-100) mg/dL POC Glucose 123 H (70-105) mg/dL 12/24/20 12/24/20 12/25/20 Range/Units 09:18 11:42 02:46 Hct (35.5-45.6) % MCV (84-94) fl MCH (28-32) pg MCHC (32-34) % RDW (13.2-15.2) % Lymph % (Auto) (13.4-35.0) % [place] % (Auto) (0.0-7.3) % Lymph # (Auto) (1.2-5.4) K/mm3 [place] # (Auto) (0.0-0.8) K/mm3 Seg Neutrophils % (40.0-70.0) % PT (12.2-14.9) Sec. INR (0.87-1.13) Sodium 134 L (137-145) mmol/L Potassium 3.5 L (3.6-5.0) mmol/L Glucose 146 H (75-100) mg/dL POC Glucose 125 H 106 H (70-105) mg/dL 12/25/20 12/25/20 12/25/20 Range/Units 04:11 04:11 05:38 Hct (35.5-45.6) % MCV (84-94) fl MCH (28-32) pg MCHC (32-34) % RDW (13.2-15.2) % Lymph % (Auto) (13.4-35.0) % [place] % (Auto) (0.0-7.3) % Lymph # (Auto) (1.2-5.4) K/mm3 [place] # (Auto) (0.0-0.8) K/mm3 Seg Neutrophils % (40.0-70.0) % PT 17.8 H (12.2-14.9) Sec. INR 1.48 H (0.87-1.13) Sodium 136 L (137-145) mmol/L Potassium 3.5 L (3.6-5.0) mmol/L Glucose 111 H (75-100) mg/dL POC Glucose 109 H (70-105) mg/dL Medications & Allergies - Medications Allergies/Adverse Reactions: Allergies No Known Allergies Allergy (Verified 12/19/20 14:00) Home Medications: Home Medications Medication Instructions Recorded Confirmed Last Taken Type oxyCODONE /ACETAMINOPHEN [Percocet 1 tab PO Q6HR PRN #10 tablet 12/23/20 Unknown Rx 5/325] Aspirin 325 mg PO QDAY #30 tablet 12/24/20 Unknown Rx Famotidine [Pepcid] 20 mg PO DAILY #30 tablet 12/24/20 Unknown Rx NIFEdipine XL [Procardia Xl] 60 mg PO Q12HR #60 tablet 12/24/20 Unknown Rx Valsartan [Diovan] 160 mg PO Q12HR #60 tablet 12/24/20 Unknown Rx hydrALAZINE [Apresoline TAB] 50 mg PO Q8HR #90 tablet 12/24/20 Unknown Rx Active Medications: Generic Name Dose Route Start Last Admin Trade Name Freq PRN Reason Stop Dose Admin Acetaminophen 650 mg 12/19/20 23:37 12/23/20 21:53 Acetaminophen 325 Mg Tab PO 650 mg Q4H PRN Administration Fever >100.5/YAO Aspirin 325 mg 12/19/20 16:00 12/24/20 09:34 Aspirin 325 Mg Tab PO 325 mg QDAY [place] Administration Famotidine 20 mg 12/22/20 10:00 12/24/20 21:23 Famotidine 20 Mg Tab PO 20 mg BID [place] Administration Heparin Sodium (Porcine) 5,000 unit 12/20/20 10:00 12/24/20 21:22 Heparin 5,000 Unit/1 Ml Vial SUB-Q Not Given Q12HR [place] Hydralazine HCl 50 mg 12/19/20 23:45 12/25/20 06:18 Hydralazine 25 Mg Tab PO 50 mg Q8HR [place] Administration Hydromorphone HCl 0.5 mg 12/19/20 23:37 12/25/20 05:21 Hydromorphone 1 Mg/1 Ml Inj IV 0.5 mg Q3H PRN Administration Pain , Severe (7-10) Sodium Chloride 1,000 mls @ 42 mls/hr 12/23/20 16:00 12/23/20 15:35 Nacl 0.45% 1000 Ml IV 42 mls/hr DIRECT [place] Administration Metoclopramide HCl 10 mg 12/19/20 23:37 Metoclopramide 10 Mg/2 Ml Inj IV Q6H PRN Nausea And Vomiting Nifedipine 60 mg 12/19/20 22:00 12/24/20 21:23 Nifedipine Xl 60 Mg Tab PO 60 mg Q12HR [place] Administration Ondansetron HCl 4 mg 12/19/20 23:37 Ondansetron 4 Mg/2 Ml Inj IV Q8H PRN Nausea And Vomiting Oxycodone/Acetaminophen 1 tab 12/19/20 23:37 Oxycodone /Acetaminophen 5-325mg Tab PO Q6H PRN Pain, Moderate (4-6) Potassium Chloride 40 meq 12/25/20 07:52 Potassium Chloride Er 20 Meq Tab PO 12/25/20 13:00 ONCE NR Simethicone 80 mg 12/20/20 02:29 12/20/20 03:04 Simethicone 80 Mg Chew Tab PO 80 mg Q6H PRN Administration Gas pain Sodium Chloride 10 ml 12/20/20 10:00 12/24/20 21:24 Sodium Chloride 0.9% 10 Ml Flush Syringe IV 10 ml BID [place] Administration Sodium Chloride 10 ml 12/19/20 23:37 Sodium Chloride 0.9% 10 Ml Flush Syringe IV PRN PRN LINE FLUSH Tramadol HCl 50 mg 12/22/20 11:33 Tramadol 50 Mg Tab PO Q4H PRN Pain, Mild (1-3) Valsartan 160 mg 12/19/20 23:45 12/24/20 21:23 Valsartan 160mg Tab PO 160 mg Q12HR [place] Administration HEART Score - HEART Score EKG: Non-specific Age: 45-65 Risk factors: 1-2 risk factors Troponin: Troponin T < 0.010 ng/mL (0.00-0.029) 12/20/20 13:10 Troponin: < normal limit - Critical Actions Critical Actions: 4-6 pts:12-16.6% risk of adverse cardiac event. Should be admitted
[2020-12-25] MEDS ORDERED: BUPIVACAINE/PF (0.5%) 5 MG/1 ML 30 ML VIAL INFILTRATI ONE (08:12)
[2020-12-25] MEDS ORDERED: LIDOCAINE (1%) 10 MG/1 ML VIAL 20 ML MDV ONE (08:12)
[2020-12-25] MEDS ORDERED: SODIUM CHLORIDE IRRI 500 ML 500 ML IR ONE (08:12)
[2020-12-25] MEDS ORDERED: SODIUM CHLORIDE 0.9% 1000 ML 1,000 ML ONE (08:13)
[2020-12-25] MEDS ORDERED: HYDROmorphone 1 MG/1 ML INJ ONE (09:21)
[2020-12-25] MEDS ORDERED: propofoL 200 MG/20 ML VIAL IV ONE ×3 (09:21→09:22)
[2020-12-25] MEDS ORDERED: KETAMINE/STERILE WATER 50 MG/ML SYRINGE ONE (09:22)
[2020-12-25] MEDS: ceFAZolin/Water 2 GM/20 ML 2 GM/20 ML SYRINGE IV ONE ×2 (09:41→09:45)
--- NOTE | 2020-12-25 09:47 | Progress Note ---
Assessment and Plan #Right atrial lead dislodgement #CHB s/p dual chamber PM -Will proceed with RA lead revision. Risks/benefits reviewed. Consent in chart. -Have emphasized importance of activity restrictions with patient. Will use shoulder immobilizer. Subjective Date of service: 12/25/20 Interval history: Patient noted to have atrial lead dislodgement on device interrogation (lead is sensing ventricular EGM and not pacing atrium). He is planned for RA lead revision today. Objective - Exam Narrative Exam: Gen-NAD CV-RRR Lungs-CTAB Abd-obese Device site healing well without erythema, swelling, drainage. - Constitutional Vitals: Vital Signs - 12hr 12/24/20 12/24/20 12/24/20 22:00 23:00 23:43 Temperature Pulse Rate 86 84 Pulse Rate [ From Monitor] Respiratory 25 H 18 Rate Blood Pressure 135/56 130/68 130/68 O2 Sat by Pulse 95 94 92 Oximetry 12/25/20 12/25/20 12/25/20 00:00 01:00 02:00 Temperature 98.8 F Pulse Rate 86 84 77 Pulse Rate [ 82 From Monitor] Respiratory 22 19 19 Rate Blood Pressure 132/72 120/85 129/71 O2 Sat by Pulse 98 93 93 Oximetry 12/25/20 12/25/20 12/25/20 03:00 04:00 04:16 Temperature 98.1 F Pulse Rate 82 81 Pulse Rate [ 80 From Monitor] Respiratory 19 18 Rate Blood Pressure 124/74 120/70 O2 Sat by Pulse 88 94 Oximetry 12/25/20 12/25/20 12/25/20 05:00 06:00 06:18 Temperature Pulse Rate 80 82 81 Pulse Rate [ From Monitor] Respiratory 15 14 Rate Blood Pressure 127/80 134/82 134/82 O2 Sat by Pulse 100 89 Oximetry 12/25/20 07:00 Temperature 98.5 F Pulse Rate Pulse Rate [ From Monitor] Respiratory Rate Blood Pressure O2 Sat by Pulse Oximetry - Labs CBC & Chem 7: 12/24/20 09:18 12/25/20 04:11 Labs: Abnormal lab results 12/24/20 12/24/20 12/24/20 Range/Units 09:18 09:18 09:18 Hct 34.9 L (35.5-45.6) % MCV 77 L (84-94) fl MCH 27 L (28-32) pg MCHC 35 H (32-34) % RDW 15.4 H (13.2-15.2) % Lymph % (Auto) 11.5 L (13.4-35.0) % [place] % (Auto) 11.3 H (0.0-7.3) % Lymph # (Auto) 1.0 L (1.2-5.4) K/mm3 [place] # (Auto) 1.0 H (0.0-0.8) K/mm3 Seg Neutrophils % 75.9 H (40.0-70.0) % PT 18.6 H (12.2-14.9) Sec. INR 1.56 H (0.87-1.13) Sodium 134 L (137-145) mmol/L Potassium 3.5 L (3.6-5.0) mmol/L Glucose 146 H (75-100) mg/dL POC Glucose (70-105) mg/dL 12/24/20 12/25/20 12/25/20 Range/Units 11:42 02:46 04:11 Hct (35.5-45.6) % MCV (84-94) fl MCH (28-32) pg MCHC (32-34) % RDW (13.2-15.2) % Lymph % (Auto) (13.4-35.0) % [place] % (Auto) (0.0-7.3) % Lymph # (Auto) (1.2-5.4) K/mm3 [place] # (Auto) (0.0-0.8) K/mm3 Seg Neutrophils % (40.0-70.0) % PT 17.8 H (12.2-14.9) Sec. INR 1.48 H (0.87-1.13) Sodium (137-145) mmol/L Potassium (3.6-5.0) mmol/L Glucose (75-100) mg/dL POC Glucose 125 H 106 H (70-105) mg/dL 12/25/20 12/25/20 Range/Units 04:11 05:38 Hct (35.5-45.6) % MCV (84-94) fl MCH (28-32) pg MCHC (32-34) % RDW (13.2-15.2) % Lymph % (Auto) (13.4-35.0) % [place] % (Auto) (0.0-7.3) % Lymph # (Auto) (1.2-5.4) K/mm3 [place] # (Auto) (0.0-0.8) K/mm3 Seg Neutrophils % (40.0-70.0) % PT (12.2-14.9) Sec. INR (0.87-1.13) Sodium 136 L (137-145) mmol/L Potassium 3.5 L (3.6-5.0) mmol/L Glucose 111 H (75-100) mg/dL POC Glucose 109 H (70-105) mg/dL Medications & Allergies - Medications Allergies/Adverse Reactions: Allergies No Known Allergies Allergy (Verified 12/19/20 14:00) Home Medications: Home Medications Medication Instructions Recorded Confirmed Last Taken Type oxyCODONE /ACETAMINOPHEN [Percocet 1 tab PO Q6HR PRN #10 tablet 12/23/20 Unknown Rx 5/325] Aspirin 325 mg PO QDAY #30 tablet 12/24/20 Unknown Rx Famotidine [Pepcid] 20 mg PO DAILY #30 tablet 12/24/20 Unknown Rx NIFEdipine XL [Procardia Xl] 60 mg PO Q12HR #60 tablet 12/24/20 Unknown Rx Valsartan [Diovan] 160 mg PO Q12HR #60 tablet 12/24/20 Unknown Rx hydrALAZINE [Apresoline TAB] 50 mg PO Q8HR #90 tablet 12/24/20 Unknown Rx Active Medications: Generic Name Dose Route Start Last Admin Trade Name Freq PRN Reason Stop Dose Admin Acetaminophen 650 mg 12/19/20 23:37 12/23/20 21:53 Acetaminophen 325 Mg Tab PO 650 mg Q4H PRN Administration Fever >100.5/YAO Aspirin 325 mg 12/19/20 16:00 12/24/20 09:34 Aspirin 325 Mg Tab PO 325 mg QDAY [place] Administration Famotidine 20 mg 12/22/20 10:00 12/24/20 21:23 Famotidine 20 Mg Tab PO 20 mg BID [place] Administration Heparin Sodium (Porcine) 5,000 unit 12/20/20 10:00 12/24/20 21:22 Heparin 5,000 Unit/1 Ml Vial SUB-Q Not Given Q12HR [facility] Hydralazine HCl 50 mg 12/19/20 23:45 12/25/20 06:18 Hydralazine 25 Mg Tab PO 50 mg Q8HR [place] Administration Hydromorphone HCl 0.5 mg 12/19/20 23:37 12/25/20 05:21 Hydromorphone 1 Mg/1 Ml Inj IV 0.5 mg Q3H PRN Administration Pain , Severe (7-10) Sodium Chloride 1,000 mls @ 42 mls/hr 12/23/20 16:00 12/23/20 15:35 Nacl 0.45% 1000 Ml IV 42 mls/hr DIRECT [place] Administration Metoclopramide HCl 10 mg 12/19/20 23:37 Metoclopramide 10 Mg/2 Ml Inj IV Q6H PRN Nausea And Vomiting Nifedipine 60 mg 12/19/20 22:00 12/24/20 21:23 Nifedipine Xl 60 Mg Tab PO 60 mg Q12HR [place] Administration Ondansetron HCl 4 mg 12/19/20 23:37 Ondansetron 4 Mg/2 Ml Inj IV Q8H PRN Nausea And Vomiting Oxycodone/Acetaminophen 1 tab 12/19/20 23:37 Oxycodone /Acetaminophen 5-325mg Tab PO Q6H PRN Pain, Moderate (4-6) Potassium Chloride 40 meq 12/25/20 07:52 Potassium Chloride Er 20 Meq Tab PO 12/25/20 13:00 ONCE NR Simethicone 80 mg 12/20/20 02:29 12/20/20 03:04 Simethicone 80 Mg Chew Tab PO 80 mg Q6H PRN Administration Gas pain Sodium Chloride 10 ml 12/20/20 10:00 12/24/20 21:24 Sodium Chloride 0.9% 10 Ml Flush Syringe IV 10 ml BID [place] Administration Sodium Chloride 10 ml 12/19/20 23:37 Sodium Chloride 0.9% 10 Ml Flush Syringe IV PRN PRN LINE FLUSH Tramadol HCl 50 mg 12/22/20 11:33 Tramadol 50 Mg Tab PO Q4H PRN Pain, Mild (1-3) Valsartan 160 mg 12/19/20 23:45 12/24/20 21:23 Valsartan 160mg Tab PO 160 mg Q12HR [place] Administration HEART Score - HEART Score EKG: Non-specific Age: 45-65 Risk factors: 1-2 risk factors Troponin: Troponin T < 0.010 ng/mL (0.00-0.029) 12/20/20 13:10 Troponin: < normal limit - Critical Actions Critical Actions: 4-6 pts:12-16.6% risk of adverse cardiac event. Should be admitted
--- NOTE | 2020-12-25 10:13 | Anesthesia Day of Surgery ---
Anesthesia Day of Surgery - Day of Surgery Patient Examined: Yes Patient H&P Reviewed: Yes Patient is NPO: Yes
[2020-12-25] MEDS ORDERED: .VANCOMYCIN VIAL 1,000 MG in SODIUM CHLORIDE IRRI 1000 ML 1,000 ML IRRIGATION ONE (10:49)
[2020-12-25] MEDS ORDERED: [UNRECOGNIZED DRUG - OTHER] TP ONE (10:55)
--- NOTE | 2020-12-25 11:33 | Post Operative Note ---
Pre-op diagnosis: RA lead dislodgement, CHB s/p DC PM Post-op diagnosis: same Findings: Dislodged RA lead. New RA lead placed via axillary access. Anesthesia: MAC Surgeon: DAVID BEAUCHAMP Estimated blood loss: minimal Pathology: none Condition: stable Disposition: floor (CXR post op. Device interrogation this afternoon. Shoulder immbolizer. May discharge from EP stand point in 4 hours if no pocket swelling or other issues. F/u [address] Beauchamp in [place] for wound check.)
--- NOTE | 2020-12-25 12:46 | Discharge Summary ---
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 ECG in the EMS and ED showed AV block with heart rate in the 20s and bradycardia for which the patient was emergently taken to [facility] for temporary venous pacemaker insertion. Patient was admitted to the hospital service with consults to [facility] and cardiology. 12/20: COVID-19 PCR pending. Patient complains of of gas pains for which he is being treated with simethicone. Patient does not complain of any chest pain, respiratory distress, nausea or vomiting. Blood pressure is better controlled. 12/21: This morning patient seems not be completely paced like yesterday, RN overnight apparently decreased the rate of the pacemaker due to an order for a decreased rate but none is found. Patient states his abd discomfort has passed and does not complain of CP/diaphoresis/ n/v or dizziness. EP deneen pending, will obtain coags in the AM 12/22: Patient currently in the [facility] for cardiac evaluation. Anticipate pacemaker placement in a.m. Per nursing staff patient reports that he does not take any medications outpatient. I did note that he has an INR of 1.5 will discuss with him again this could be secondary to intrinsic changes. We will look at LFTs. Continue current management Set up to follow with pulmonary outpatient for sleep apnea. And also primary care physician set up. 12/23: Continue supportive care, no new issues reported but apprehensive still about Possible LUCIO, as he hears his snoring on sudden waking up. Going for PPM today. Will obtain an ABG to assess CO2 status 12/24: Patient doing well following insertion of double chamber PPM. No new complaints. No dizziness at this time. He also had a stress test which was unremarkable per documentation. He will be discharged to follow-up with cardiology/EP outpatient in 1 week. Extensive counseling was given to the patient about obesity and lifestyle changes preventive health counseling done for 20 minutes. Discharge medications discussed with the patient in detail he verbalized understanding he also understands that he is to have a sleep study outpatient to rule out pulmonary embolism. 12/25: Patient underwent device interrogation this afternoon. No new complaints and per EP. Shoulder immbolizer. May discharge from EP stand point in 4 hours if no pocket swelling or other issues. F/u [address] Beauchamp in [place] for wound check. COVID-19 PUI Complete heart block Hypertensive emergency Lead Migration Obesity- Morbid Presyncope (likely related to complete heart block) Secondary coagulopathy with an INR of 1.5 Disposition: DC-01 TO HOME OR SELFCARE Final Discharge Diagnosis (Prints w/discharge instructions): COMPLETE HEART BLOCK Time spent for discharge: 35 MINS Core Measure Documentation - Palliative Care Palliative Care/ Comfort Measures: Not Applicable - Core Measures Any of the following diagnoses?: none Exam - Physical Exam Narrative exam: -General appearance: Present: no acute distress, well-nourished, obese - EENT Eyes: Present: PERRL, EOM intact ENT: hearing intact, clear oral mucosa, dentition normal - Neck Neck: Present: supple, normal ROM - Respiratory Respiratory effort: normal Respiratory: bilateral: CTA - Cardiovascular Rhythm: regular Heart Sounds: Present: S1 & S2. Absent: systolic murmur, diastolic murmur - Extremities Extremities: no ischemia, pulses intact, pulses symmetrical, No edema, normal temperature, normal color, Full ROM Peripheral Pulses: within normal limits - Abdominal General gastrointestinal: soft, non-tender, non-distended, normal bowel sounds - Integumentary Integumentary: Present: PPM chamber intact no drainage noted. Warm, dry, multiple tattoos - Psychiatric Psychiatric: appropriate mood/affect, cooperative - Neurologic Neurologic: CNII-XII intact, no focal deficits, moves all extremities - Allied Health Allied health notes reviewed: nursing, RT - Constitutional Vitals: Temp Pulse Resp BP Pulse Ox 98 F 82 15 138/74 100 12/25/20 11:57 12/25/20 11:57 12/25/20 11:57 12/25/20 11:57 12/25/20 11:57 Plan Activity: advance as tolerated, fall precautions Diet: low cholesterol Special Instructions: record daily weights, record daily BP diary, smoking cessation Follow up with: RANDY HALLMAN MD [Staff Physician] - 7 Days DAVID BEAUCHAMP MD [Staff Physician] - 7 Days PRIMARY CARE, [Primary Care Provider] - 7 Days Prescriptions: hydrALAZINE [Apresoline TAB] 50 mg PO Q8HR #90 tablet Aspirin 325 mg PO QDAY #30 tablet Valsartan [Diovan] 160 mg PO Q12HR #60 tablet Famotidine [Pepcid] 20 mg PO DAILY #30 tablet oxyCODONE /ACETAMINOPHEN [Percocet 5/325] 1 tab PO Q6HR PRN #10 tablet PRN Reason: Pain NIFEdipine XL [Procardia Xl] 60 mg PO Q12HR #60 tablet
[2020-12-25] MEDS: HEPARIN 5,000 UNIT/1 ML VIAL SUB-Q SCH (13:42)
--- NOTE | 2020-12-25 14:13 | XRay Report ---
CHEST 1 VIEW INDICATION / CLINICAL INFORMATION: Pacemaker Postop. COMPARISON: 12/23/2020 FINDINGS: SUPPORT DEVICES: Left-sided pacemaker HEART / MEDIASTINUM: No significant abnormality. LUNGS / PLEURA: No significant pulmonary or pleural abnormality. No pneumothorax. ADDITIONAL FINDINGS: No significant additional findings. IMPRESSION: Pacing leads are superimposed over the expected position of the right atrium and right ventricle cedrick lar in appearance to prior examination dated 12/23/2020. No acute disease Signer Name: Jonh Jolley MD FACR Signed: 12/25/2020 2:09 PM Workstation Name: [id number]
[2020-12-25] MEDS: NIFEdipine XL 60 MG TAB PO SCH (16:11)
[2020-12-25] MEDS: VALSARTAN 160MG TAB PO SCH (16:11)
[2020-12-25] MEDS: ASPIRIN 325 MG TAB PO SCH (16:11)
[2020-12-25] MEDS: FAMOTIDINE 20 MG TAB PO SCH (16:12)
[2020-12-25 18:07] VITALS: BP 127/79
--- NOTE | 2020-12-26 00:20 | Procedure Note ---
Date of procedure: 12/25/20 Pre-op diagnosis: RA lead dislodgement, CHB s/p dual chamber PM 12/23/20 Post-op diagnosis: same Procedure: ATRIAL LEAD REVISION PATIENT NAME: Farhad Allen : 1975 MR#: [id number] DATE OF PROCEDURE: 12/25/2020 HOSPITAL: [facility] CREDIT CONTROL OFFICER: Erlin Beauchamp M.D. Pre Operative Diagnosis: Complete Heart Block and dislodged atrial lead Post Operative Diagnosis: Complete Heart Block and dislodged atrial lead s/p a trial lead revision COMPLICATIONS: None PROCEDURE: The risks, benefits, and alternatives were explained to the patient. The patient was prepped and draped in standard fashion for implantable pacemaker insertion following sterile preparation of the pectoral region. Local anesthesia was obtained by infiltration with 1% Lidocaine. A 4 cm incision was made in the infra-clavicular region over the prior incision. At that point further dissection was carried out by blunt dissection and electro-cautery. A pocket was opened and device removed. The atrial lead was disconnected, helix withdrawn and entire lead removed under fluoroscopy. The vein was cannulated using Seldinger technique. Using a peel away introducer, the new atrial lead was advanced to the RA and positioned to the appendage. The helix was extended and endocardial measurements were made. After the attainment of acceptable endocardial values, the new lead was sutured over their suture sleeves to the underlying tissue. Inspection was performed to rule out any bleeding. The pocket was irrigated with antibiotic solution. The pulse generator was then connected to the lead and the setscrews tightened appropriately. The pulse generator was placed in the pocket and connections were verified. The wound was closed using . A Dermabond dressing was placed over the wound. The patient was returned to the room in stable condition without complication or sequelae. FINDINGS: The following endocardial parameters were obtained: Bridge Maintenance Worker Model# Serial # Sensing Threshold Impedance RA Medtronic 5076 [id number] 4.9mV 0.5V @ 0.4ms 874ohms RV Medtronic 5076 [id number] 13.1mV 0.5V @ 0.4ms 608ohms PROGRAMMING: The implanted Medtronic generator (Model # [place] S , Serial #[id number]) was programmed: Mode Lower Rate Maximum Rate AV/PV delay DDD 60 bpm bpm 220 msec/ 200 msec Pulse Amplitude Pulse Width Sensitivity RA 3.5Volts 0.4 msec Automatic RV 3.5Volts 0.4 msec Automatic Atrial lead removed: model 5076, s/n [id number] CONCLUSIONS: Successful atrial lead revision Estimated Blood Loss: <10 cc PLAN: Routine post op orders, CXR, F/u as OP, Enroll in remote monitoring Erlin Henri Beauchamp cc: [facility], [place] [address]
== END 2020-12-25 18:12 | disposition home or self-care (01) | DRG 243 ==
LOC: ED 12:18 → CC1 14:29
PROVIDERS: ADMIT Internal Medicine; ATTEND Internal Medicine
PROC: 5A1223Z Performance of Cardiac Pacing, Continuous (ICD-10-PCS; 2020-12-19)
PROC: 4A023N7 Measurement of Cardiac Sampling and Pressure, Left Heart, Percutaneous Approach (ICD-10-PCS; principal; 2020-12-22)
PROC: B2111ZZ Fluoroscopy of Multiple Coronary Arteries using Low Osmolar Contrast (ICD-10-PCS; 2020-12-22)
PROC: B2151ZZ Fluoroscopy of Left Heart using Low Osmolar Contrast (ICD-10-PCS; 2020-12-22)
PROC: 0JH606Z Insertion of Pacemaker, Dual Chamber into Chest Subcutaneous Tissue and Fascia, Open Approach (ICD-10-PCS; 2020-12-23)
PROC: 02HK3JZ Insertion of Pacemaker Lead into Right Ventricle, Percutaneous Approach (ICD-10-PCS; 2020-12-23)
PROC: 02H63JZ Insertion of Pacemaker Lead into Right Atrium, Percutaneous Approach (ICD-10-PCS; 2020-12-23)
PROC: 4A033R1 Measurement of Arterial Saturation, Peripheral, Percutaneous Approach (ICD-10-PCS; 2020-12-23)
PROC: 02PA3MZ Removal of Cardiac Lead from Heart, Percutaneous Approach (ICD-10-PCS; 2020-12-25)
PROC: 02H63JZ Insertion of Pacemaker Lead into Right Atrium, Percutaneous Approach (ICD-10-PCS; 2020-12-25)
PROC: 4B02XSZ Measurement of Cardiac Pacemaker, External Approach (ICD-10-PCS; 2020-12-25)
DX: I44.2 Atrioventricular block, complete (principal); I16.1 Hypertensive emergency; D68.8 Other specified coagulation defects; Z68.41 Body mass index [BMI] 40.0-44.9, adult; I24.9 Acute ischemic heart disease, unspecified; E66.01 Morbid (severe) obesity due to excess calories; I10 Essential (primary) hypertension; D64.9 Anemia, unspecified; Z20.822 Contact with and (suspected) exposure to COVID-19; F17.210 Nicotine dependence, cigarettes, uncomplicated; G47.30 Sleep apnea, unspecified; Z82.49 Family history of ischemic heart disease and other diseases of the circulatory system
CPT/HCPCS: 33208; 33210; 33216; 33234; 36415; 36600; 71045; 80048; 80053; 80076; 80307; 81001; 82550; 82553; 82805; 82962; 83036; 83735; 83880; 84439; 84443; 84484; 85025; 85027; 85610; 85730; 86850; 86900; 86901; 93005; 93306; 93458; G0378; C1760; C1785; C1892; C1894; C1898; J0461; J0690; J1170; J1644; J2250; J2704; J3010; J3370; J3490; J7030; J7040; Q9967; U0003

== ENCOUNTER 2020-12-31 13:11 | Emergency (ER) | payer BC ==
--- NOTE | 2020-12-31 14:37 | XRay Report ---
XR chest 1V ap INDICATION / CLINICAL INFORMATION: pacemaker placement, parestesias. COMPARISON: 12/25/2020 FINDINGS: SUPPORT DEVICES: Dual lead left subclavian cardiac pacemaker leads terminate within the right atrium and right ventricle. HEART /PULMONARY VASCULATURE: Cardiac silhouette is accentuated. No pulmonary vasculature congestion. LUNGS / PLEURA: No significant pulmonary or pleural abnormality. No pneumothorax. ADDITIONAL FINDINGS: No significant additional findings. IMPRESSION: No acute findings. Signer Name: Osman Morin MD Signed: 12/31/2020 2:33 PM Workstation Name: [id number]
[2020-12-31 14:47] LABS: Basophils % (Auto) 0.4 % (0.0-1.8); Eosinophils # (Auto) 0.1 K/mm3 (0.0-0.4); Eosinophils % (Auto) 1.8 % (0.0-4.3); Hemoglobin 11.9 gm/dl (11.8-15.2); Lymphocytes # (Auto) 0.9 K/mm3 (1.2-5.4); Lymphocytes % (Auto) 12.4 % (13.4-35.0); Mean Corpuscular HGB Conc 35 % (32-34); Mean Corpuscular Volume 77 fl (84-94); Monocytes # (Auto) 0.8 K/mm3 (0.0-0.8); Monocytes % (Auto) 11.1 % (0.0-7.3); Platelet Count 391 K/mm3 (140-440); Red Blood Count 4.41 M/mm3 (3.65-5.03); Red Cell Distribution Width 15.2 % (13.2-15.2)
--- NOTE | 2020-12-31 15:02 | Emergency Department Report ---
HPI - General Chief Complaint: Weakness Time Seen by Provider: 12/31/20 13:22 - HPI HPI: 45-year-old male with history of complete heart block status post dual-chamber pacemaker placement December 23 presents complaining of anxiety and paresthesias since waking up this morning. Patient states that he woke up this morning and felt very anxious and slightly clammy. He also has had intermittent temporary tingling sensations in his fingers and feet. He states that he has been very stressed out about not sleeping on his left arm the wrong way because he had a pacemaker placed 2 weeks ago. He thinks he might of slept incorrectly on his left arm last night. Although triage noted a complaint of left arm pain he says he never asked experience left arm/shoulder pain but rather he has had chronic soreness since the procedure. He states that the procedure was placed on December 23 after he had recurrent episodes of dizziness which led him to go to the emerg ency department. He states that the feelings he is experiencing today are different than what he experienced before but there causing him concerned so he decided to come to the emergency room to be checked out. He denies experiencing any chest pain, dizziness, shortness of breath, cough, palpitations, syncope, headache, vision change, focal weakness, decreased sensation to touch, or any other complaints. ED Past Medical Hx - Past Medical History Hx Hypertension: Yes Additional medical history: Complete heart block - Surgical History Hx Pacemaker: Yes (temporary venous pacemake in situ) Additional Surgical History: Dual-chamber pacemaker placement - Social History Smoking Status: Current Some Day Smoker - Medications Home Medications: Home Medications Medication Instructions Recorded Confirmed Last Taken Type oxyCODONE /ACETAMINOPHEN [Percocet 1 tab PO Q6HR PRN #10 tablet 12/23/20 Unknown Rx 5/325] Aspirin 325 mg PO QDAY #30 tablet 12/24/20 Unknown Rx Famotidine [Pepcid] 20 mg PO DAILY #30 tablet 12/24/20 Unknown Rx NIFEdipine XL [Procardia Xl] 60 mg PO Q12HR #60 tablet 12/24/20 Unknown Rx Valsartan [Diovan] 160 mg PO Q12HR #60 tablet 12/24/20 Unknown Rx hydrALAZINE [Apresoline TAB] 50 mg PO Q8HR #90 tablet 12/24/20 Unknown Rx ED Review of Systems ROS: Stated complaint: POSS PACEMEAKER MOVED Other details as noted in HPI Constitutional: denies: chills, fever Eyes: denies: eye pain, vision change ENT: denies: throat pain, congestion Respiratory: denies: cough, shortness of breath Cardiovascular: denies: chest pain, palpitations Gastrointestinal: denies: abdominal pain, nausea, vomiting Genitourinary: denies: dysuria, frequency Musculoskeletal: denies: back pain, joint swelling Skin: denies: rash, change in color Neurological: paresthesias. denies: headache, weakness, abnormal gait Psychiatric: anxiety Physical Exam - Physical Exam Vital Signs: Vital Signs 12/31/20 13:16 Temperature 98.2 F Pulse Rate 79 Respiratory 16 Rate Blood Pressure 130/62 O2 Sat by Pulse 98 Oximetry Physical Exam: GENERAL: Well developed. Well nourished. No acute distress HEENT: Normocephalic. No obvious contusions, abrasions, lacerations, or other signs of trauma. Moist mucous membranes. EYES: Extraocular movements are intact. Pupils are equal round and reactive to light bilaterally NECK: Supple. Trachea is midline. LUNGS: Nonlabored breathing. Equal chest rise bilaterally. Clear to auscultation bilaterally. HEART/CARDIOVASCULAR: Regular rate and rhythm. No murmurs or rubs. Left upper chest wall incision is clean dry and intact without signs of surrounding warmth, erythema, or any other abnormalities. ABDOMEN: Abdomen is soft and nondistended. Normal bowel sounds. No significant tenderness, guarding or rebound. SKIN: Skin is warm and dry NEURO: Patient is awake, alert, and oriented. No focal deficits. Normal motor and sensory exam throughout. MUSCULOSKELETAL: No deformities. ED Course Vital Signs 12/31/20 13:16 Temperature 98.2 F Pulse Rate 79 Respiratory 16 Rate Blood Pressure 130/62 O2 Sat by Pulse 98 Oximetry ED Medical Decision Making - Lab Data Result diagrams: 12/31/20 14:14 12/31/20 14:15 Laboratory Results - last 24 hr 12/31/20 12/31/20 14:14 14:15 WBC 6.9 RBC 4.41 Hgb 11.9 Hct 34.0 L MCV 77 L MCH 27 L MCHC 35 H RDW 15.2 Plt Count 391 Lymph % (Auto) 12.4 L [place] % (Auto) 11.1 H Eos % (Auto) 1.8 Baso % (Auto) 0.4 Lymph # (Auto) 0.9 L [place] # (Auto) 0.8 Eos # (Auto) 0.1 Baso # (Auto) 0.0 Seg Neutrophils % 74.3 H Seg Neutrophils # 5.1 Sodium 137 Potassium 4.6 Chloride 102.8 Carbon Dioxide 25 Anion Gap 14 BUN 13 Creatinine 1.0 Estimated GFR > 60 BUN/Creatinine Ratio 13 Glucose 96 Calcium 9.3 Magnesium 2.40 H Troponin T < 0.010 - EKG Data -: EKG Interpreted by Me - EKG Data When compared to previous EKG there are: changes noted (Inverted T waves in I and aVL) 12/31/20 15:01 Normal sinus rhythm. Normal axis. Normal intervals. Early repolarization noted in leads V1 through V3. Inverted T waves noted in leads I and aVL as well as V5 and V6. No significant ST segment abnormalities. - Radiology Data XR chest 1V ap INDICATION / CLINICAL INFORMATION: pacemaker placement, parestesias. COMPARISON: 12/25/2020 FINDINGS: SUPPORT DEVICES: Dual lead left subclavian cardiac pacemaker leads terminate within the right atrium and right ventricle. HEART /PULMONARY VASCULATURE: Cardiac silhouette is accentuated. No pulmonary vasculature congestion. LUNGS / PLEURA: No significant pulmonary or pleural abnormality. No pneumothorax. ADDITIONAL FINDINGS: No significant additional findings. IMPRESSION: No acute findings. Signer Name: Osman Morin MD Signed: 12/31/2020 1:33 PM Workstation Name: [id number] - Medical Decision Making 45-year-old male presents complaining of anxiety and intermittent paresthesias since waking up this morning. Patient had a dual-chamber pacemaker placed on December 23 for complete heart block. Patient states that his symptoms today are different than his initial symptoms that he experienced when the heart block was discovered. The patient also denies any chest pain, arm pain, shortness of breath or other typical cardiac symptoms. Although the patient had a pacemaker placed for complete heart block, his EKG today shows normal sinus rhythm. He has inverted T waves which are new in leads I and aVL but otherwise no significant changes from his prior EKG. we will therefore perform work-up with a full set of labs including troponin as well as chest x-ray to look at lead molly cement. We will plan to consult his dual hose cementer, Dr. Beauchamp when labs return. Chest x-ray shows proper dual-chamber pacemaker in place and no other acute abnormalities. Labs including CBC and CMP are within normal limits. Troponin is negative. On repeat assessment at 3:10 PM, the patient says that he feels better but still feels slightly ansy. Paresthesias have resolved. He was reassured by his normal labs and chest x-ray. We will place a call to his dual hose cementer for further recommendations. At 3:50 PM I spoke with Dr. Brad Amaya of cardiology who is covering for the patient's dual hose cementer. We discussed details of the case including the EKG findings, labs and chest x-ray. He says that given that the patient's symptoms have resolved and there are no abnormalities he is okay to go home and follow-up in the office tomorrow. He says that he will have the office call to schedule an appointment. I went and spoke to the patient after this call and he states that he feels 100% better and feels as if he was just anxious earlier. He says he understands and agrees with our plan to follow-up with his dual hose cementer tomorrow. I told him that if he does not hear from the office by tomorrow he should give them a call. Critical care attestation.: If time is entered above; I have spent that time in minutes in the direct care of this critically ill patient, excluding procedure time. ED Disposition Clinical Impression: Paresthesia, Anxiety Disposition: DC-01 TO HOME OR SELFCARE Is pt being admited?: No Condition: Stable Instructions: Paresthesia, Managing Anxiety, Adult Additional Instructions: Should you experience recurrent symptoms, dizziness, confusion, specific areas of weakness, numbness, chest pain, or any other new concerns please return to emergency department. Otherwise follow-up with your dual hose cementer tomorrow. You should receive a call from the office. If you do not hear from the office by tomorrow please call the number listed. Referrals: DAVID BEAUCHAMP MD [Staff Physician] - 24 Hours
[2020-12-31 15:04] LABS: BUN/Creatinine Ratio 13; Blood Urea Nitrogen 13 mg/dL (9-20); Calcium 9.3 mg/dL (8.4-10.2); Hemolysis Index 5
[2020-12-31 16:39] VITALS: BP 138/85
--- NOTE | 2021-01-02 09:54 | Electrocardiograph Report ---
[facility] Test Date: 2020-12-31 Test Time: 13:26:00 Pat Name: CHANA SAINI III Department: Room: Gender: M Crossing Gateman: FLOYD : 1975 Requested By: TERELL BRO Order Number: [id number] Reading MD: Bharat Marcial Measurements Intervals [place] Rate: 73 P: 66 WI: 145 QRS: 24 QRSD: 81 T: 122 QT: 379 QTc: 418 Interpretive Statements Sinus rhythm Nonspecific T abnrm, anterolateral leads Compared to ECG 12/22/2020 05:15:22 Left anterior fascicular block no longer present Right bundle-branch block no longer present Prolonged QT interval no longer present Intermittent WI prolongation noted on previous EKG is no longer present. Electronically Signed On 01-02-2021 9:54:18 EDT by Bharat Marcial
== END 2020-12-31 17:05 | disposition home or self-care (01) ==
LOC: ED 13:11
DX: F41.9 Anxiety disorder, unspecified (principal); R20.2 Paresthesia of skin; I10 Essential (primary) hypertension; F17.200 Nicotine dependence, unspecified, uncomplicated; Z98.890 Other specified postprocedural states; Z79.899 Other long term (current) drug therapy
CPT/HCPCS: 36415; 71045; 80048; 83735; 84484; 85025; 93005